=== PATIENT | female | born 1950 | race Hispanic/Latino ===

== ENCOUNTER 2018-11-23 09:48 | Inpatient (IN) | payer OTHER ==
[~2018-11-23] VITALS: Ht 157.5 cm; Wt 83.4 kg
[2018-11-23] VITALS (35 sets, daily range): BP systolic 63–136; BP diastolic 23–79
--- NOTE | 2018-11-23 11:38 | NUR ---
PATIENT ARRIVED VIA EMS. EMS STATES PATIENT STARTED C/O 5/10 CP RADIATING TO HER BACK, WITH N/V THAT STARTED 5 MINUTES PRIOR TO ARRIVAL AT [facility]. PATIENT MOVED TO ICU BED AND CONNECTED TO BEE ROBBER. ALARMS ON AND AUDIBLE. BED LOCKED AND LOW, CALL LIGHT IN REACH. 12 LEAD EKG DONE AND PLACED ON CHART. HEPARIN DRIP INFUSING AT 1000UNITS/HOUR, CONTINUED HERE AT [facility]. ASSESSED PER CHARTING. WILL CONTINUE TO MONITOR.
--- NOTE | 2018-11-23 11:51 | NUR ---
DENIES CHEST PAIN AT THIS TIME.
[2018-11-23] MEDS ORDERED: INSU3INS5 SQ (12:07)
[2018-11-23] MEDS ORDERED: INSU100I35 SQ (12:07)
[2018-11-23] MEDS ORDERED: METF-446 PO (12:08)
[2018-11-23] MEDS ORDERED: DULO30CA52 PO (12:08)
[2018-11-23] MEDS ORDERED: TELM40 PO (12:08)
[2018-11-23] MEDS ORDERED: ROSU40TA21 PO (12:08)
--- NOTE | 2018-11-23 12:09 | NUR ---
PAGED DR THAKKAR FOR ADMISSION ORDERS. INFORMED HE IS IN AN OPERATION AND ORDERS WILL BE PLACED IN THE COMPUTER.
[2018-11-23 12:28] LABS: HEMATOCRIT 22.5 % (36-48); MEAN CORPUSCULAR HEMOGLOBIN 25.7 pg (27.0-33.0); MEAN CORPUSCULAR HGB CONC 32.4 g/dL (32.0-36.0); MEAN CORPUSCULAR VOLUME 79.5 fL (79-99); PLATELET COUNT (AUTO) 194 K/uL (130-400); RED BLOOD CELL COUNT(AUTO) 2.83 MIL/uL (4.00-5.50); RED CELL DISTRIBUTION WIDTH 15.3 % (11.0-15.5); WHITE BLOOD COUNT (AUTO) 14.6 K/uL (4.8-10.8)
[2018-11-23] MEDS ORDERED: HEPARIN 25000 UNITS/250 ML D5W 250 ML IV PRN (12:30)
[2018-11-23 12:32] LABS: INR 1.02 (0.85-1.15); PARTIAL THROMBOPLASTIN TIME 63.1 SEC (26.3-35.5); PROTHROMBIN TIME 10.7 SEC (9.6-11.6)
[2018-11-23 12:44] LABS: CREATININE 1.4 mg/dL (0.5-1.5); MAGNESIUM 1.4 mg/dL (1.80-2.40)
[2018-11-23] MEDS: SODIUM CHLORIDE 0.9% 1000ML 1,000 ML IV SCH ×2 (12:59→20:30)
[2018-11-23] MEDS: MAGNESIUM 2GM PREMIX 50ML 50 ML IV PRN (12:59)
--- NOTE | 2018-11-23 13:25 | NUR ---
[facility] CALLED WITH CONSULT BY THE [facility]. PENDING CALL BACK.
[2018-11-23] MEDS ORDERED: ONDANSETRON HCL 4 MG/2 ML VIAL IVP PRN (13:30)
[2018-11-23] MEDS ORDERED: CALCIUM CHLORIDE 100 MG/ML 10 ML SYG IVP ONE (13:57)
[2018-11-23] MEDS ORDERED: HEPARIN SODIUM 1000UNIT/ML 10ML VIAL IV ONE (13:57)
[2018-11-23] MEDS ORDERED: PHENYLEPHRINE HCL 10 MG/ML 1ML VIAL IV ONE ×2 (13:57→23:22)
[2018-11-23] MEDS ORDERED: MANNITOL 25% 50ML VIAL IV ONE (13:57)
[2018-11-23] MEDS ORDERED: AMINOCAPROIC ACID 250 MG/ML 20 ML VIAL IV ONE (13:57)
[2018-11-23] MEDS ORDERED: ALBUMIN (HUMAN) 25% 50 ML IV ONE (13:57)
[2018-11-23] MEDS ORDERED: SODIUM BICARB 8.4% 50ML SYRINGE IVP ONE (13:57)
--- NOTE | 2018-11-23 16:36 | NUR ---
DR THAKKAR PAGED FOR PERSISTENT HYPOTENSION. PENDING CALL BACK.
--- NOTE | 2018-11-23 17:05 | NUR ---
DR THAKKAR PAGED AGAIN. CALLED BACK. INFORMED OF BP, H/H. ORDERED TO TRANSFUSE 2 UNITS PRBC.
--- NOTE | 2018-11-23 17:14 | NUR ---
DR KUNZ NOTIFIED OF CONSULT. NO NEW ORDERS AT THIS TIME.
--- NOTE | 2018-11-23 17:25 | NUR ---
CONSENT FOR TRANSFUSION OF BLOOD AND BLOOD PRODUCTS OBTAINED FROM VIK CARDONA (DAUGHTER). Mina ORALNDO RN AND Kenyon DOE RN OBTAINED TELEPHONE CONSENT
--- NOTE | 2018-11-23 17:40 | NUR ---
PER DR THAKKAR-CONTINUE HEPARIN DRIP AND TRANSFUSION
[2018-11-23] MEDS ORDERED: ALBUMIN (HUMAN) 5% 250 ML IV ONE (17:42)
[2018-11-23] MEDS ORDERED: ALBUMIN (HUMAN) 5% 250 ML IV SCH (17:45)
[2018-11-23 18:22] LABS: INR 1.13 (0.85-1.15); PROTHROMBIN TIME 11.8 SEC (9.6-11.6)
[2018-11-23 18:40] LABS: PARTIAL THROMBOPLASTIN TIME 114.7 SEC (26.3-35.5)
--- NOTE | 2018-11-23 19:05 | NUR ---
ASSESSMENT REMAINS RESTING IN BED. DENIES PAIN. ASSESSMENT COMPLETED SEE FLOW SHEET. BP REMAINS LOW. WAITING FOR BLOOD TO GET READY.
--- NOTE | 2018-11-23 19:45 | NUR ---
TRANSFUSION BLOOD READY FROM BANK AND SENT FOR.
[2018-11-23] MEDS ORDERED: SODIUM CHLORIDE 0.9% 500ML 500 ML IV ONE (19:55)
--- NOTE | 2018-11-23 20:15 | NUR ---
TRANSFUSION 1ST UNIT PRBC HERE AND CHECKED WITH 2ND RN AND TRANSFUSION STARTED. .
[2018-11-23] MEDS: ATORVASTATIN CALCIUM 20 MG TABLET PO SCH (21:00)
[2018-11-23] MEDS: METOPROLOL TARTRATE 25 MG TAB PO SCH (21:00)
[2018-11-23] MEDS: INSULIN HUMULIN R 100 UNIT/ML 3ML SQ SCH (21:00)
--- NOTE | 2018-11-23 21:20 | NUR ---
INDEPENDENT JEWELER CALL COMFORT GONZALEZ MAIL PROCESSOR FOR DR KUNZ CALLED AND MADE AWARE OF CONTINUED LOW BP ORDERS RECEIVED AND CARRIED OUT.
--- NOTE | 2018-11-23 21:25 | NUR ---
MD CALL DR THAKKAR CALLS AND ORDERS RECEIVED AND CARRIED OUT.
[2018-11-23] MEDS ORDERED: NOREPINEPHRINE 4MG/NS 250ML 250 ML IV SCH (21:30)
[2018-11-23 21:52] LABS: HEMATOCRIT 24.3 % (36-48); MEAN CORPUSCULAR VOLUME 90.1 fL (79-99); PLATELET COUNT (AUTO) 130 K/uL (130-400); RED CELL DISTRIBUTION WIDTH 16.5 % (11.0-15.5); WHITE BLOOD COUNT (AUTO) 18.2 K/uL (4.8-10.8)
[2018-11-23 21:58] LABS: CREATININE 1.7 mg/dL (0.5-1.5); POTASSIUM 5.3 mmol/L (3.5-5.1)
--- NOTE | 2018-11-23 22:00 | NUR ---
TRANSFUSION 1ST TRANSFUSION COMPLETED WITHOUT PROBLEM. 2ND UNIT PRBC HERE AND CHECKED WITH 2ND RN AND TRANSFUSION STARTED.
--- NOTE | 2018-11-23 22:00 | NUR ---
MD CALL DR JOHNS CALLS AND INFORMED OF LOW BP AND DR THAKKAR WANTING AN ART LINE PLACED. ORDERS RECEIVED AND CARRIED OUT.
[2018-11-23 22:04] LABS: INR 1.29 (0.85-1.15); PROTHROMBIN TIME 13.4 SEC (9.6-11.6)
--- NOTE | 2018-11-23 22:05 | NUR ---
HERE DR KUNZ HERE TO SEE HER.
[2018-11-23 22:07] LABS: ABG BASE EXCESS -15.8 mmol/L (-2.0-3.0); ABG HCO3 11.5 mmol/L (21.0-28.0); ABG OXYGEN SATURATION 97.9 % (95.0-99.0); ABG PCO2 32 mmHg (32-45)
[2018-11-23] MEDS ORDERED: SODIUM BICARB 50MEQ 50ML VIAL ONE ×2 (22:10→22:54)
[2018-11-23] MEDS ORDERED: LIDOCAINE HCL 2% 20ML ONE (22:44)
[2018-11-23] MEDS ORDERED: MIDAZOLAM HCL 1 MG/ML 2ML VIAL ONE (22:44)
[2018-11-23] MEDS ORDERED: BIVALIRUDIN 250 MG/VIAL IV ONE (22:44)
[2018-11-23] MEDS ORDERED: IOHEXOL-350 75 ML VIAL IV ONE (22:44)
[2018-11-23] MEDS ORDERED: NITROGLYCERIN 5 MG/ML 10 ML VIAL IV ONE (22:44)
[2018-11-23] MEDS ORDERED: IOHEXOL-350 50ML VIAL IV ONE (22:44)
[2018-11-23] MEDS ORDERED: FENTANYL CITRATE PF 50 MCG/1 ML 2ML VIAL ONE (22:44)
[2018-11-23] MEDS ORDERED: DOPAMINE HCL 400 MG/D5%-WATER 0 ML IV ONE (22:53)
[2018-11-23] MEDS ORDERED: LIDOCAINE PF 2% 5ML ABBOJECT ONE (22:53)
[2018-11-23] MEDS ORDERED: ATROPINE SULFATE 0.1 MG/ML 10 ML SYG IVP ONE (22:53)
--- NOTE | 2018-11-23 23:05 | NUR ---
TO LEATHER FINISHER LEATHER FINISHER NURSES HERE AND MOVED TO LEATHER FINISHER FOR PROCEDURE.
[2018-11-23] MEDS ORDERED: SODIUM BICARB 50MEQ 50ML VIAL IV ONE (23:15)
[2018-11-24] VITALS (90 sets, daily range): BP systolic 62–190; BP diastolic 25–82
--- NOTE | 2018-11-24 00:25 | NUR ---
RECEIVED BACK FROM SPORTS MANAGEMENT INTERN WITH LEVOPHED DRIP INFUSING AT 15MCG. HAS LEFT FEMORAL ARTERIAL AND VENOUS SHEATHS IN PLACE. ART LINE PLACED TO MONITOR AND LEVELED AND ZEROED. DENIES PAIN AT THIS TIME. ASSESSMENT COMPLETED.
--- NOTE | 2018-11-24 00:35 | NUR ---
BILLING SPEC CALL MR GONZALEZ,BILLING SPEC FOR DR KUNZ CALLS AND ORDERS STAT ABG
[2018-11-24 00:49] LABS: ABG BASE EXCESS -8.3 mmol/L (-2.0-3.0); ABG HCO3 16.2 mmol/L (21.0-28.0); ABG OXYGEN SATURATION 98.6 % (95.0-99.0); ABG PCO2 29 mmHg (32-45)
--- NOTE | 2018-11-24 00:50 | NUR ---
DR THAKKAR HERE AT BED SIDE. SEE ABG RESULTS AND ORDERS RECEIVED AND CARRIED OUT. STATES WANTS LEVOPHED DRIP WEAN OFF. TALKS TO FAMILY AND QUESTIONS ANSWERED.
[2018-11-24] MEDS ORDERED: SODIUM BICARB 50MEQ 50ML VIAL ONE ×6 (00:52→14:35)
[2018-11-24] MEDS ORDERED: CALCIUM GLUCONATE 1 GM/10 ML VIAL IV ONE (01:15)
[2018-11-24] MEDS ORDERED: SODIUM CHLORIDE 0.9% 500ML 500 ML IV ONE ×2 (01:25→08:40)
--- NOTE | 2018-11-24 01:30 | NUR ---
TRANSFUSION STARTED BEFORE LEAVING FOR [facility] COMPLETED . DR THAKKAR HERE AND ORDERS TO GIVE ADDITIONAL 3 UNITS.
--- NOTE | 2018-11-24 01:40 | NUR ---
TRANSFUSION PRBC HERE AND CHECKED WITH 2ND RN AND TRANSFUSION STARTED.
--- NOTE | 2018-11-24 02:35 | NUR ---
MD CALL BP REMAINS LOW AND ORDERS GIVEN EARLIER TO WEAN OFF LEVOPHED. DR THAKKAR CALLED AND INFORMED OF LOW BP STILL AND NOT ABLE TO WEAN LEVOPHED DRIP.ORDERS RECEIVED AND CARRIED OUT. ORDER ALSO RECEIVED NOT TO RESUME HEPARIN DRIP. FAMILY MEMBER REMAINS AT BEDSIDE.
[2018-11-24] MEDS ORDERED: NOREPINEPHRINE BITARTRATE 1 MG/1 ML ML IV ONE ×2 (02:45→08:26)
[2018-11-24] MEDS ORDERED: SODIUM CHLORIDE 0.9% 250 ML IV ONE (02:45)
--- NOTE | 2018-11-24 03:00 | NUR ---
TRANSFUSION PRBC INFUSED . ANOTHER UNIT PRBC HERE FROM LAB AND CHECKED WITH 2ND RN AND TRANSFUSION STARTED.
[2018-11-24] MEDS: SODIUM CHLORIDE 0.9% 1000ML 1,000 ML IV SCH ×2 (04:30→08:18)
--- NOTE | 2018-11-24 04:30 | NUR ---
TRANSFUSION COMPLETED. ADDITIONAL PRBC HERE FROM LAB AND CHECKED WITH 2ND RN AND TRANSFUSION STARTED.
[2018-11-24] MEDS: INSULIN HUMULIN R 100 UNIT/ML 3ML SQ SCH ×2 (06:43→11:30)
[2018-11-24 07:13] LABS: HEMATOCRIT 40.9 % (36-48)
--- NOTE | 2018-11-24 07:15 | NUR ---
PT ASBP NOTED 60S. PT UNRESPONSIVE AND WITH AGONAL BREATHING. DR. VANESSA AT BEDSIDE. 1 L NS BOLUS STARTED AND LEVOPHED INCREASED TO 15 MCGS/MIN. ABG OBTAINED. DR. THAKKAR AND DR. FRANCO CALLED AND NOTIFIED. NEW ORDERS RECEIVED AND NOTED. DAUGHTER UPDATED AND ALL QUESTIONS ANSWERED. PT FULL CODE PER FAMILY REQUEST. ANESTHESIA CALLED TO INTUBATE PT.
[2018-11-24 07:29] LABS: ABG BASE EXCESS -17.6 mmol/L (-2.0-3.0); ABG HCO3 15.9 mmol/L (21.0-28.0); ABG OXYGEN SATURATION 97.2 % (95.0-99.0); ABG PCO2 79 mmHg (32-45)
[2018-11-24] MEDS ORDERED: PROPOFOL 1000 MG/100 ML 100 ML IV ONE (07:42)
--- NOTE | 2018-11-24 07:45 | NUR ---
ANESTHESIA AT BEDSIDE, PT INTUBATED WITH ETT 7.5, 20 LIPS, CXR ORDERED AND REVIEWED. PT PLACED ON PRESCRIBED VENT SETTINGS.
[2018-11-24] MEDS ORDERED: SODIUM BICARB 50MEQ 50ML VIAL IV SCH (07:48)
[2018-11-24] MEDS ORDERED: PROPOFOL 1000 MG/100 ML IV PRN (08:00)
--- NOTE | 2018-11-24 08:10 | NUR ---
DR. THAKKAR AT BEDSIDE. PLAN OF CARE DISCUSSED. NEED FOR EMERGENT SURGERY DISCUSSED WITH DAUGHTER AT BEDSIDE, ALL RISK INVOLVED EXPLAINED TO DAUGHTER INCLUDING AND NOT LIMITED TO . DAUGHTER STATES SHE UNDERSTANDS AND WANT TO PROCEED WITH SURGERY, SURGERY SCHEDULED AND CONSENT OBTAINED.
[2018-11-24] MEDS ORDERED: CLINDAMYCIN 600 MG/D5% WATER 50 ML IV SCH (08:15)
[2018-11-24] MEDS ORDERED: PROPOFOL 1000 MG/100 ML 100 ML IV PRN ×2 (08:15→14:45)
[2018-11-24 08:20] LABS: ABG BASE EXCESS -6.6 mmol/L (-2.0-3.0); ABG HCO3 19.5 mmol/L (21.0-28.0); ABG PCO2 41 mmHg (32-45)
[2018-11-24] MEDS ORDERED: FENTANYL CITRATE PF 50 MCG/1 ML 2ML VIAL ONE (08:23)
[2018-11-24] MEDS ORDERED: LIDOCAINE PF 2% 5ML ABBOJECT ONE ×2 (08:26→08:28)
[2018-11-24] MEDS ORDERED: ESMOLOL HCL 10 MG/ML 10 ML VIAL ONE (08:26)
[2018-11-24] MEDS ORDERED: AMINOCAPROIC ACID 250 MG/ML 20 ML VIAL IV ONE (08:26)
[2018-11-24] MEDS ORDERED: EPINEPHRINE 1 MG/ML AMPULE ONE (08:26)
[2018-11-24] MEDS ORDERED: HEPARIN SODIUM 1000UNIT/ML 10ML VIAL ONE (08:26)
[2018-11-24] MEDS ORDERED: PROTAMINE SULFATE 10 MG/ML 25ML VIAL IV ONE (08:26)
[2018-11-24] MEDS ORDERED: FENTANYL CITRATE PF 50 MCG/1 ML 20ML VIAL IJ ONE (08:27)
[2018-11-24] MEDS ORDERED: ROCURONIUM 10MG/1ML SYR 10 MG/ML ML ONE ×2 (08:27→11:08)
[2018-11-24] MEDS ORDERED: PROPOFOL 10 MG/ML 20ML VIAL IV ONE (08:27)
[2018-11-24] MEDS ORDERED: VASOPRESSIN 20 UNITS/ML 1ML VIAL ONE (08:28)
[2018-11-24] MEDS ORDERED: ETOMIDATE 2 MG/ML 10 ML VIAL ONE (08:28)
[2018-11-24] MEDS ORDERED: AMIODARONE HCL 50 MG/ML 3 ML VIAL ONE (08:29)
[2018-11-24] MEDS ORDERED: EPINEPHRINE 8 MG in SODIUM CHLORIDE 0.9% 250 ML IV PRN (08:30)
--- NOTE | 2018-11-24 08:41 | NUR ---
DR. WHITLOCK AND OR NURSES AT BEDSIDE TO TAKE PT TO SURGERY. PT AWAKE AND RESTLESS, EPI DRIP STARTED AT 0.01 MCGS/KG/MIN ORDERED. VS NOTED IN EMR. DAUGHTER AT BEDSIDE.
[2018-11-24 08:48] LABS: HEMOGLOBIN A1C 6.1 % (4.0-6.0)
[2018-11-24 08:58] LABS: INR 2.1 (0.85-1.15); PARTIAL THROMBOPLASTIN TIME 47.1 SEC (26.3-35.5); PROTHROMBIN TIME 21.4 SEC (9.6-11.6)
[2018-11-24] MEDS ORDERED: ASPIRIN 81 MG EC TAB PO SCH (09:00)
[2018-11-24] MEDS: METOPROLOL TARTRATE 25 MG TAB PO SCH (09:00)
[2018-11-24] MEDS ORDERED: CLINDAMYCIN 900 MG/D5% WATER 50 ML IV ONE (09:09)
[2018-11-24] MEDS ORDERED: ALBUMIN (HUMAN) 5% 500 ML IV ONE ×2 (09:25→09:26)
[2018-11-24 09:31] LABS: ABG BASE EXCESS -0.5 mmol/L (-2.0-3.0); ABG HCO3 22.8 mmol/L (21.0-28.0); ABG OXYGEN SATURATION 96.6 % (95.0-99.0); ABG PCO2 32 mmHg (32-45)
[2018-11-24] MEDS ORDERED: PAPAVERINE HCL 30 MG/ML 2ML VIAL ONE (09:50)
[2018-11-24] MEDS ORDERED: BACITRACIN 50,000 UNIT VIAL ONE (09:50)
[2018-11-24 10:42] LABS: ABG BASE EXCESS -2.9 mmol/L (-2.0-3.0); ABG HCO3 22.2 mmol/L (21.0-28.0); ABG OXYGEN SATURATION 94.1 % (95.0-99.0); ABG PCO2 39 mmHg (32-45)
[2018-11-24 10:48] LABS: PLATELET FUNCTION ANALYSIS ADP 171 SEC (62-100); PLATELET FUNCTION ANALYSIS EPI > 192 SEC (55-192)
[2018-11-24 10:49] LABS: HEMATOCRIT 40.9 % (36-48)
[2018-11-24 10:51] LABS: ABG BASE EXCESS -3.4 mmol/L (-2.0-3.0); ABG OXYGEN SATURATION 98.2 % (95.0-99.0); ABG PCO2 41 mmHg (32-45)
[2018-11-24 11:04] LABS: PLATELET COUNT (AUTO) 65 K/uL (130-400)
[2018-11-24 11:32] LABS: ABG BASE EXCESS -1.8 mmol/L (-2.0-3.0); ABG HCO3 22.5 mmol/L (21.0-28.0); ABG OXYGEN SATURATION 98.6 % (95.0-99.0); ABG PCO2 36 mmHg (32-45)
[2018-11-24 12:09] LABS: ABG BASE EXCESS -0.9 mmol/L (-2.0-3.0); ABG HCO3 24.1 mmol/L (21.0-28.0); ABG OXYGEN SATURATION 98.3 % (95.0-99.0); ABG PCO2 41 mmHg (32-45)
[2018-11-24] MEDS ORDERED: POTASSIUM CHLORIDE 20MEQ/100ML 200 ML IV ONE (12:35)
[2018-11-24 12:42] LABS: ABG BASE EXCESS -2.3 mmol/L (-2.0-3.0); ABG HCO3 21.9 mmol/L (21.0-28.0); ABG OXYGEN SATURATION 98.5 % (95.0-99.0); ABG PCO2 35 mmHg (32-45)
[2018-11-24 13:11] LABS: ABG BASE EXCESS -2.3 mmol/L (-2.0-3.0); ABG HCO3 22.3 mmol/L (21.0-28.0); ABG OXYGEN SATURATION 98.7 % (95.0-99.0); ABG PCO2 37 mmHg (32-45)
[2018-11-24 13:48] LABS: ABG BASE EXCESS -1.8 mmol/L (-2.0-3.0); ABG HCO3 21.3 mmol/L (21.0-28.0); ABG OXYGEN SATURATION 97.1 % (95.0-99.0); ABG PCO2 30 mmHg (32-45)
[2018-11-24 13:49] LABS: PLATELET COUNT (AUTO) 38 K/uL (130-400)
[2018-11-24 14:16] LABS: PLATELET MORPHOLOGY COMMENT MARKED DECREASE
[2018-11-24 14:18] LABS: ABG BASE EXCESS -3.2 mmol/L (-2.0-3.0); ABG HCO3 19.8 mmol/L (21.0-28.0); ABG OXYGEN SATURATION 95.7 % (95.0-99.0); ABG PCO2 28 mmHg (32-45)
[2018-11-24] MEDS ORDERED: SODIUM CHLORIDE 0.9% 500ML 500 ML IV SCH (14:33)
[2018-11-24] MEDS ORDERED: SODIUM CHLORIDE 0.9% 1000ML 1,000 ML IV SCH (14:45)
[2018-11-24] MEDS ORDERED: TRAMADOL HCL 50 MG TABLET PO PRN ×2 (14:45)
[2018-11-24] MEDS ORDERED: MORPHINE SULFATE 2 MG/ML 1ML SYG IV PRN (14:45)
[2018-11-24] MEDS ORDERED: NITROGLYCERIN 50 MG/D5% WATER 250 BOT IV SCH (14:45)
[2018-11-24] MEDS ORDERED: GLUCAGON 1MG KIT 1 MG ML IM PRN (14:45)
[2018-11-24] MEDS ORDERED: SODIUM CHLORIDE 0.9% 10 ML VIAL IVP PRN (14:45)
[2018-11-24] MEDS ORDERED: ACETAMINOPHEN 325 MG TAB PO PRN ×2 (14:45)
[2018-11-24] MEDS ORDERED: AMINOCAPROIC ACID 15,000 MG in SODIUM CHLORIDE 0.9% 250 ML IV SCH (14:45)
[2018-11-24] MEDS ORDERED: ACETAMINOPHEN 650 MG SUPPOSITORY RC PRN (14:45)
[2018-11-24] MEDS ORDERED: MORPHINE SULFATE 4 MG/1ML SYG IV PRN (14:45)
[2018-11-24] MEDS ORDERED: NOREPINEPHRINE 4MG/NS 250ML 250 ML IV PRN (14:45)
[2018-11-24] MEDS ORDERED: ONDANSETRON HCL 4 MG/2 ML VIAL IV PRN (14:45)
[2018-11-24] MEDS ORDERED: DEXTROSE 50%-WATER 50 ML DISP.SYRIN IV PRN (14:45)
[2018-11-24] MEDS ORDERED: POTASSIUM PHOS 15 mMOL+NS250ML 250 ML IV PRN (14:45)
[2018-11-24] MEDS ORDERED: SODIUM BICARB 50MEQ 50ML VIAL IV PRN (14:45)
[2018-11-24] MEDS ORDERED: ALBUMIN (HUMAN) 5% 250 ML IV PRN (14:45)
[2018-11-24] MEDS ORDERED: SODIUM CHLORIDE 0.9% 250 ML IV PRN (14:45)
--- NOTE | 2018-11-24 15:15 | NUR ---
PATIENT ARRIVED TO CVER FROM OR WITH ETT CONNECTED TO ORDERED SETTINGS. ON EPI AND LEVOPHED DRIPS. 2 CT TO 1 ATRIUM WITH 200ML NOTED ON ARRIVAL. NO AIR LEAK. LEONE CATHETER CHANGED IN OR. PATENT AND DRAINING. ROSEY DRAIN NOTED TO RIGHT FEMORAL SITE. BED LOCKED AND LOW. MONITORS ON AND ALARMS SET/AUDIBLE. R NARE NGT PLACEMENT CONFIRMED AND CONNECTED TO LIWS AND NOTICED DARK RED DRAINAGE. ASSESSMENT AND VITALS PER CHARTING.
--- NOTE | 2018-11-24 15:33 | NUR ---
REVIEWED ASSESSMENT AND AVAILABLE LAB RESULTS WITH DR THAKKAR AT BEDSIDE. ORDERED PROTONIX DRIP. DUE TO POOR RENAL FUNCTION, HOLDING K REPLACEMENT AT THIS TIME. ORDERED ADDITIONAL 2 PRBC, 2FFP, 1 PLT AND 1 CRYO UNITS TO BE TRANSFUSED STAT. ORDERED FIXED RATE DOPAMINE DRIP. ALL ORDERS CARRIED OUT.
[2018-11-24 15:35] LABS: ABG BASE EXCESS -0.6 mmol/L (-2.0-3.0); ABG HCO3 23.6 mmol/L (21.0-28.0); ABG OXYGEN SATURATION 88.9 % (95.0-99.0); ABG PCO2 37 mmHg (32-45)
[2018-11-24 15:41] LABS: ABG OXYGEN SATURATION 49.2 % (95.0-99.0); BASE EXCESS,VENOUS BLOOD GAS -0.7 (-2.0-3.0); HCO3,VENOUS BLOOD GAS 23.9 (21.0-28.0); PCO2,VENOUS BLOOD GAS 39 (32-45); PH,VENOUS BLOOD GAS 7.406 (7.350-7.450)
[2018-11-24] MEDS ORDERED: DOPAMINE 800MG/D5 250ML 250 ML IV ONE (15:41)
[2018-11-24] MEDS ORDERED: IPRATROPIUM/ALBUTEROL SULFATE 3 ML SOLUTION IH ONE (15:42)
[2018-11-24] MEDS ORDERED: DOPAMINE 800MG/D5 250ML 250 ML IV PRN (15:45)
[2018-11-24 15:53] LABS: CARBON DIOXIDE 23 mmol/L (21-32); CHLORIDE 115 mmol/L (101-111); CREATININE 2.5 mg/dL (0.5-1.5); GLOMERULAR FILTR. RATE CALC 20 mL/min (>60); GLUCOSE,RANDOM 152 mg/dL (70-105); PHOSPHORUS 5.9 mg/dL (2.5-4.9); POTASSIUM 3.6 mmol/L (3.5-5.1); UREA NITROGEN, BLOOD 33 mg/dL (7-18)
[2018-11-24 15:56] LABS: SODIUM SERUM > 162 mmol/L (136-145)
[2018-11-24 15:58] LABS: HEMATOCRIT 21.1 % (36-48); MEAN CORPUSCULAR HEMOGLOBIN 31.1 pg (27.0-33.0); MEAN CORPUSCULAR HGB CONC 34.3 g/dL (32.0-36.0); MEAN CORPUSCULAR VOLUME 90.8 fL (79-99); NUCLEATED RED BLOOD CELLS 6.6 % (0.0-0.19); PLATELET COUNT (AUTO) 90 K/uL (130-400); RED BLOOD CELL COUNT(AUTO) 2.33 MIL/uL (4.00-5.50); RED CELL DISTRIBUTION WIDTH 15.3 % (11.0-15.5); WHITE BLOOD COUNT (AUTO) 2.1 K/uL (4.8-10.8)
[2018-11-24] MEDS: INSULIN REGULAR, HUMAN 3ML 100 UNIT in SODIUM CHLORIDE 0.9% 99 ML IV SCH ×2 (16:07)
--- NOTE | 2018-11-24 16:10 | NUR ---
pt on vent Addendum: 11/24/18 at 1616 by GRISEL KWAN RT Amended: Links added.
--- NOTE | 2018-11-24 16:10 | NUR ---
DR THAKKAR LEFT PATIENT'S BEDSIDE.
[2018-11-24 16:13] LABS: INR 1.39 (0.85-1.15); PARTIAL THROMBOPLASTIN TIME 30.4 SEC (26.3-35.5); PROTHROMBIN TIME 14.4 SEC (9.6-11.6)
[2018-11-24 16:14] LABS: ABG BASE EXCESS -1.1 mmol/L (-2.0-3.0); ABG HCO3 22.1 mmol/L (21.0-28.0); ABG OXYGEN SATURATION 97.2 % (95.0-99.0); ABG PCO2 31 mmHg (32-45)
--- NOTE | 2018-11-24 16:15 | NUR ---
no family available to ask for pulmonary hx Addendum: 11/24/18 at 1616 by GRISEL KWAN RT Amended: Links added.
[2018-11-24] MEDS: IPRATROPIUM/ALBUTEROL SULFATE 3 ML SOLUTION IH SCH ×3 (16:17→21:42)
[2018-11-24] MEDS: PANTOPRAZOLE SODIUM 80 MG in SODIUM CHLORIDE 0.9% 100 ML IV SCH (16:35)
[2018-11-24 16:47] LABS: LYMPHOCYTES % (MANUAL) 29 % (22-44); MONOCYTES % (MANUAL) 4 % (2-9); SEGMENTED NEUTROPHILS % 67 % (40-70)
[2018-11-24 16:48] LABS: MAN.DIFF COMMENT-IMPRESSION MANUAL DIFFERENTIAL; PLATELET MORPHOLOGY COMMENT DECREASED
[2018-11-24] MEDS ORDERED: FUROSEMIDE 10 MG/ML 2ML VIAL IV SCH (17:05)
--- NOTE | 2018-11-24 17:45 | NUR ---
FAMILY IN TO VISIT. EXPLAINED CURRENT CONDITION, POC, VISITATION. ALL QUESTIONS ANSWERED. VIK (DAUGHTER) WILL BE SPOKESPERSON [phone].
[2018-11-24 19:17] LABS: ABG HCO3 22.4 mmol/L (21.0-28.0); ABG PCO2 28 mmHg (32-45)
[2018-11-24] MEDS ORDERED: PHARMACY COMMUNICATION MISC SCH (19:45)
[2018-11-24 19:51] LABS: MEAN CORPUSCULAR HEMOGLOBIN 31.3 pg (27.0-33.0); MEAN CORPUSCULAR HGB CONC 34.6 g/dL (32.0-36.0); MEAN CORPUSCULAR VOLUME 90.6 fL (79-99); NUCLEATED RED BLOOD CELLS 0.4 % (0.0-0.19); PLATELET COUNT (AUTO) 97 K/uL (130-400); RED BLOOD CELL COUNT(AUTO) 2.65 MIL/uL (4.00-5.50); RED CELL DISTRIBUTION WIDTH 14.9 % (11.0-15.5); WHITE BLOOD COUNT (AUTO) 4.3 K/uL (4.8-10.8)
[2018-11-24 20:12] LABS: ABG OXYGEN SATURATION 60.5 % (95.0-99.0); HCO3,VENOUS BLOOD GAS 25.1 (21.0-28.0); PCO2,VENOUS BLOOD GAS 38 (32-45); PH,VENOUS BLOOD GAS 7.436 (7.350-7.450)
[2018-11-24] MEDS ORDERED: NOREPINEPHRINE BITARTRATE 8 MG in SODIUM CHLORIDE 0.9% 250 ML IV PRN (20:15)
[2018-11-24 20:18] LABS: ABG BASE EXCESS 0.8 mmol/L (-2.0-3.0); ABG HCO3 24.1 mmol/L (21.0-28.0); ABG OXYGEN SATURATION 91.6 % (95.0-99.0); ABG PCO2 33 mmHg (32-45)
[2018-11-24 20:19] LABS: ALBUMIN 2.7 g/dL (3.5-5.0); BILIRUBIN,TOTAL 2.9 mg/dL (0.2-1.0); CARBON DIOXIDE 27 mmol/L (21-32); CHLORIDE 116 mmol/L (101-111); CREATININE 2.8 mg/dL (0.5-1.5); GLOMERULAR FILTR. RATE CALC 18 mL/min (>60); GLUCOSE,RANDOM 156 mg/dL (70-105); TOTAL PROTEIN, SERUM 4.6 g/dL (6.0-8.3); UREA NITROGEN, BLOOD 39 mg/dL (7-18)
[2018-11-24 20:27] LABS: ALANINE AMINOTRANSFERASE 1651 U/L (12-78); POTASSIUM 2.9 mmol/L (3.5-5.1); SODIUM SERUM > 162 mmol/L (136-145)
--- NOTE | 2018-11-24 20:28 | NUR ---
Notification to [address] fowler to notify of patients current condition, ABG and labs. 2114: Dr. Fowler here to see Pt. Orders received and entered into system 11/25/18 0033: Notification to Dr. Fowler Orders Received and entered into Not iT, 0430: Dr. Fowler notified of patients current condition, ABG results, Medications infusing, and all Lab including critical. Orders received and entered into system
[2018-11-24] MEDS ORDERED: FUROSEMIDE 10 MG/ML 4ML VIAL ONE (20:40)
[2018-11-24] MEDS: ATORVASTATIN CALCIUM 20 MG TABLET PO SCH (20:46)
[2018-11-24] MEDS: FAMOTIDINE/PF 20 MG/2 ML VIAL IV SCH (20:46)
[2018-11-24] MEDS ORDERED: FUROSEMIDE 10 MG/ML 4ML VIAL IV STA (20:46)
[2018-11-24 21:04] LABS: ASPARTATE AMINOTRANSFERASE 3862 U/L (10-37)
[2018-11-24 21:29] LABS: ABG BASE EXCESS 3.4 mmol/L (-2.0-3.0); ABG PCO2 37 mmHg (32-45)
[2018-11-24] MEDS: CALCIUM GLUCONATE 1 GM in SODIUM CHLORIDE 0.9% 50 ML IV PRN (21:41)
[2018-11-24] MEDS: POTASSIUM CHLORIDE 20MEQ/100ML 100 ML IV PRN (21:46)
[2018-11-24] MEDS: FUROSEMIDE 100 MG in SODIUM CHLORIDE 0.9% 90 ML IV PRN (22:06)
[2018-11-24] MEDS ORDERED: ALBUMIN (HUMAN) 25% 50 ML IV SCH (23:00)
[2018-11-24 23:01] LABS: ABG BASE EXCESS 5.4 mmol/L (-2.0-3.0); ABG HCO3 26.8 mmol/L (21.0-28.0); ABG OXYGEN SATURATION 97.3 % (95.0-99.0); ABG PCO2 28 mmHg (32-45)
[2018-11-24] MEDS ORDERED: ALBUMIN (HUMAN) 25% 100 ML IV ONE (23:01)
[2018-11-24] MEDS: CLINDAMYCIN 900 MG/D5% WATER 50 ML IV SCH (23:13)
[2018-11-25] VITALS (54 sets, daily range): BP systolic 80–129; BP diastolic 23–75
[2018-11-25 00:14] LABS: ABG BASE EXCESS 3.8 mmol/L (-2.0-3.0); ABG HCO3 28.1 mmol/L (21.0-28.0); ABG OXYGEN SATURATION 90.6 % (95.0-99.0); ABG PCO2 41 mmHg (32-45)
[2018-11-25] MEDS: PANTOPRAZOLE SODIUM 80 MG in SODIUM CHLORIDE 0.9% 100 ML IV SCH ×3 (00:57→20:46)
[2018-11-25] MEDS: CALCIUM GLUCONATE 1 GM in SODIUM CHLORIDE 0.9% 50 ML IV PRN (00:57)
[2018-11-25] MEDS: HYDROCORTISONE SOD SUCCINATE 100 MG/2 ML VIAL IV SCH ×4 (01:00→20:41)
[2018-11-25] MEDS: POTASSIUM CHLORIDE 20MEQ/100ML 100 ML IV PRN ×3 (01:01→15:36)
[2018-11-25] MEDS ORDERED: HYDROCORTISONE SOD SUCCINATE 100 MG/2 ML VIAL ONE (01:22)
[2018-11-25] MEDS: IPRATROPIUM/ALBUTEROL SULFATE 3 ML SOLUTION IH SCH ×6 (01:51→21:13)
[2018-11-25] MEDS: EPINEPHRINE 8 MG in DEXTROSE 5%-WATER 250 ML IV PRN ×3 (02:47→20:21)
[2018-11-25 03:02] LABS: ABG BASE EXCESS 3.8 mmol/L (-2.0-3.0); ABG HCO3 27.8 mmol/L (21.0-28.0); ABG PCO2 40 mmHg (32-45)
[2018-11-25 03:21] LABS: HEMATOCRIT 27.8 % (36-48); MEAN CORPUSCULAR HEMOGLOBIN 30.7 pg (27.0-33.0); MEAN CORPUSCULAR HGB CONC 34.3 g/dL (32.0-36.0); MEAN CORPUSCULAR VOLUME 89.5 fL (79-99); PLATELET COUNT (AUTO) 84 K/uL (130-400); RED BLOOD CELL COUNT(AUTO) 3.11 MIL/uL (4.00-5.50); RED CELL DISTRIBUTION WIDTH 14.3 % (11.0-15.5); WHITE BLOOD COUNT (AUTO) 18.4 K/uL (4.8-10.8)
[2018-11-25 03:41] LABS: INR 1.26 (0.85-1.15); PARTIAL THROMBOPLASTIN TIME 31.1 SEC (26.3-35.5); PROTHROMBIN TIME 13.1 SEC (9.6-11.6)
[2018-11-25 03:42] LABS: ALBUMIN 2.7 g/dL (3.5-5.0); BILIRUBIN,TOTAL 2.8 mg/dL (0.2-1.0); CREATININE 3.1 mg/dL (0.5-1.5); MAGNESIUM 1.7 mg/dL (1.80-2.40); PHOSPHORUS 3.3 mg/dL (2.5-4.9); POTASSIUM 3.2 mmol/L (3.5-5.1); TOTAL PROTEIN, SERUM 4.6 g/dL (6.0-8.3)
[2018-11-25 04:21] LABS: ABG BASE EXCESS 5.1 mmol/L (-2.0-3.0); ABG HCO3 28.7 mmol/L (21.0-28.0); ABG PCO2 39 mmHg (32-45)
[2018-11-25] MEDS: CLINDAMYCIN 900 MG/D5% WATER 50 ML IV SCH ×2 (06:46→13:54)
[2018-11-25] MEDS: FUROSEMIDE 100 MG in SODIUM CHLORIDE 0.9% 90 ML IV PRN (06:46)
[2018-11-25] MEDS ORDERED: DEXTROSE 5%-WATER 1,000 ML IV ONE ×2 (07:50→11:15)
[2018-11-25] MEDS ORDERED: PHARMACY COMMUNICATION MISC SCH (08:00)
[2018-11-25] MEDS ORDERED: DEXTROSE 5%-WATER 500 ML IV ONE ×2 (08:00→16:00)
[2018-11-25] MEDS ORDERED: DEXTROSE 5%-WATER 500 ML IV SCH (08:00)
[2018-11-25] MEDS: FAMOTIDINE/PF 20 MG/2 ML VIAL IV SCH ×2 (08:02→20:12)
[2018-11-25] MEDS: MEROPENEM 500 MG VIAL IVP SCH ×2 (08:03→20:12)
[2018-11-25 08:15] LABS: ABG BASE EXCESS 2.8 mmol/L (-2.0-3.0); ABG OXYGEN SATURATION 89.9 % (95.0-99.0); ABG PCO2 40 mmHg (32-45)
[2018-11-25] MEDS ORDERED: NOREPINEPHRINE BITARTRATE 8 MG in DEXTROSE 5%-WATER 250 ML IV PRN (08:30)
[2018-11-25] MEDS ORDERED: DEXTROSE 5%-WATER 1,000 ML IV SCH (08:30)
[2018-11-25] MEDS: MAGNESIUM 2GM PREMIX 50ML 50 ML IV PRN (08:43)
[2018-11-25] MEDS: DEXTROSE 5%-WATER 500 ML IV PRN (08:47)
[2018-11-25] MEDS: CALCIUM GLUCONATE 1 GM in DEXTROSE 5%-WATER 50 ML IV PRN ×4 (09:38→23:09)
[2018-11-25 09:44] LABS: ABG BASE EXCESS 4.7 mmol/L (-2.0-3.0); ABG HCO3 29.3 mmol/L (21.0-28.0); ABG PCO2 43 mmHg (32-45)
--- NOTE | 2018-11-25 11:41 | NUR ---
HOLD PHYSICAL THERAPY TODAY PER GABRIELA TURPIN DUE TO PATIENT IS STILL INTUBATED. Addendum: 11/25/18 at 1142 by LUIS ANTONIO MULLEN PT PT Amended: Links added.
[2018-11-25 12:34] LABS: CREATININE 4.2 mg/dL (0.5-1.5); POTASSIUM 3.6 mmol/L (3.5-5.1)
[2018-11-25 12:50] LABS: ALBUMIN 2.2 g/dL (3.5-5.0); BILIRUBIN,DIRECT 0.6 mg/dL (0.0-0.3); BILIRUBIN,TOTAL 2.4 mg/dL (0.2-1.0); MAGNESIUM 2.8 mg/dL (1.80-2.40); TOTAL PROTEIN, SERUM 4.2 g/dL (6.0-8.3)
[2018-11-25 13:19] LABS: ABG BASE EXCESS 4.4 mmol/L (-2.0-3.0); ABG HCO3 28.7 mmol/L (21.0-28.0); ABG OXYGEN SATURATION 90.8 % (95.0-99.0); ABG PCO2 42 mmHg (32-45)
[2018-11-25] MEDS ORDERED: CALCIUM GLUCONATE 1 GM/10 ML VIAL IV ONE (14:02)
[2018-11-25 15:21] LABS: ABG BASE EXCESS 4.2 mmol/L (-2.0-3.0); ABG HCO3 26.5 mmol/L (21.0-28.0); ABG OXYGEN SATURATION 94.6 % (95.0-99.0); ABG PCO2 31 mmHg (32-45)
[2018-11-25] MEDS: FUROSEMIDE IV PRN ×2 (15:39→17:10)
[2018-11-25] MEDS: INSULIN REGULAR, HUMAN 3ML 100 UNIT in SODIUM CHLORIDE 0.9% 99 ML IV SCH ×4 (15:39→20:25)
[2018-11-25] MEDS: WATER IV PRN ×2 (15:39→17:10)
[2018-11-25] MEDS: DEXTROSE 5% IV PRN ×2 (15:39→17:10)
[2018-11-25 18:17] LABS: ABG BASE EXCESS 7.1 mmol/L (-2.0-3.0); ABG HCO3 30.4 mmol/L (21.0-28.0); ABG OXYGEN SATURATION 92.8 % (95.0-99.0); ABG PCO2 38 mmHg (32-45)
[2018-11-25] MEDS ORDERED: VANCOMYCIN 0.75 GM in SODIUM CHLORIDE 0.9% 250 ML IV ONE (18:45)
[2018-11-25] MEDS ORDERED: DEXTROSE 5 %-0.45 % NACL 1,000 ML IV SCH (18:45)
[2018-11-25] MEDS ORDERED: ALBUMIN (HUMAN) 5% 250 ML IV ONE (18:45)
[2018-11-25] MEDS: ATORVASTATIN CALCIUM 20 MG TABLET PO SCH (19:48)
[2018-11-25 21:04] LABS: APPEARANCE,URINE SL CLOUDY (CLEAR); BILIRUBIN,URINE NEGATIVE (NEGATIVE); COLOR,URINE YELLOW (YELLOW); GLUCOSE, URINE (UA) NEGATIVE (NEGATIVE); KETONES,URINE NEGATIVE (NEGATIVE); LEUKOCYTE ESTERASE ,URINE TRACE (NEGATIVE); NITRATE,URINE NEGATIVE (NEGATIVE); OCCULT BLOOD,URINE LARGE (NEGATIVE); PH,URINE 5.5 (5.0-8.0); PROTEIN,URINE 100 mg/dL (NEGATIVE); UROBILINOGEN,URINE 0.2 mg/dL (0.2-1.0)
[2018-11-25 21:06] LABS: SODIUM,URINE RANDOM 52 mmol/l (40-220)
[2018-11-25 21:12] LABS: BACTERIA,URINE Moderate /HPF (None Seen); MUCUS,URINE Few LPF (None Seen)
[2018-11-25 23:09] LABS: ABG BASE EXCESS 6.1 mmol/L (-2.0-3.0); ABG HCO3 28.8 mmol/L (21.0-28.0); ABG OXYGEN SATURATION 95.8 % (95.0-99.0); ABG PCO2 34 mmHg (32-45)
[2018-11-26] VITALS (25 sets, daily range): BP systolic 94–144; BP diastolic 50–68
--- NOTE | 2018-11-26 00:44 | NUR ---
DR. BIJAN THAKKAR CALLED UPDATED PT STATUS LATEST ABGS, VS, DRIPS, I&O'S. NO NEW ORDERS AT THIS TIME. WILL CONTINUE TO MONITOR.
[2018-11-26] MEDS ORDERED: CALCIUM GLUCONATE 1 GM/10 ML VIAL IV ONE ×3 (01:14→06:29)
[2018-11-26] MEDS: CALCIUM GLUCONATE 1 GM in DEXTROSE 5%-WATER 50 ML IV PRN ×6 (01:15→20:59)
[2018-11-26] MEDS: IPRATROPIUM/ALBUTEROL SULFATE 3 ML SOLUTION IH SCH ×6 (01:19→21:25)
[2018-11-26] MEDS ORDERED: FUROSEMIDE 10 MG/ML 10ML VIAL ONE (02:49)
[2018-11-26] MEDS ORDERED: SODIUM CHLORIDE 0.9% 100 ML IV ONE (02:49)
[2018-11-26] MEDS: FUROSEMIDE IV PRN ×2 (03:03→19:27)
[2018-11-26] MEDS: WATER IV PRN ×2 (03:03→19:27)
[2018-11-26] MEDS: DEXTROSE 5% IV PRN ×2 (03:03→19:27)
[2018-11-26 04:17] LABS: ABG BASE EXCESS 5.4 mmol/L (-2.0-3.0); ABG HCO3 28.7 mmol/L (21.0-28.0); ABG OXYGEN SATURATION 96.1 % (95.0-99.0); ABG PCO2 37 mmHg (32-45)
[2018-11-26 04:29] LABS: MEAN CORPUSCULAR HGB CONC 34.8 g/dL (32.0-36.0); MEAN CORPUSCULAR VOLUME 89.1 fL (79-99); NUCLEATED RED BLOOD CELLS 1.5 % (0.0-0.19); PLATELET COUNT (AUTO) 37 K/uL (130-400); RED BLOOD CELL COUNT(AUTO) 2.69 MIL/uL (4.00-5.50); RED CELL DISTRIBUTION WIDTH 14.8 % (11.0-15.5); WHITE BLOOD COUNT (AUTO) 27.8 K/uL (4.8-10.8)
[2018-11-26 04:43] LABS: INR 1.29 (0.85-1.15); PARTIAL THROMBOPLASTIN TIME 38.7 SEC (26.3-35.5); PROTHROMBIN TIME 13.4 SEC (9.6-11.6)
[2018-11-26 04:50] LABS: ALBUMIN 2.3 g/dL (3.5-5.0); BILIRUBIN,DIRECT 1.1 mg/dL (0.0-0.3); BILIRUBIN,TOTAL 3.4 mg/dL (0.2-1.0); CREATININE 3.8 mg/dL (0.5-1.5); MAGNESIUM 2.6 mg/dL (1.80-2.40); PHOSPHORUS 4.2 mg/dL (2.5-4.9); POTASSIUM 3.9 mmol/L (3.5-5.1); TOTAL PROTEIN, SERUM 4.6 g/dL (6.0-8.3)
[2018-11-26 04:56] LABS: BAND NEUTROPHILS % (MANUAL) 16 % (0-2); LYMPHOCYTES % (MANUAL) 13 % (22-44); MAN.DIFF COMMENT-IMPRESSION MANUAL DIFFERENTIAL; MONOCYTES % (MANUAL) 11 % (2-9); PLATELET MORPHOLOGY COMMENT MARKED DECREASE; SEGMENTED NEUTROPHILS % 60 % (40-70)
[2018-11-26] MEDS ORDERED: PHARMACY COMMUNICATION MISC SCH (06:15)
--- NOTE | 2018-11-26 06:40 | NUR ---
DR. BIJAN THAKKAR CALLED AND UPDATED ON PT STATUS LATEST LABS, I&O'S, VS, AND DRIPS. NEW ORDERS RECEIVED AND WILL BE CARRIED OUT.
[2018-11-26] MEDS: MEROPENEM 500 MG VIAL IVP SCH ×2 (08:17→19:38)
[2018-11-26] MEDS: FAMOTIDINE/PF 20 MG/2 ML VIAL IV SCH ×2 (08:19→19:42)
[2018-11-26] MEDS: HYDROCORTISONE SOD SUCCINATE 100 MG/2 ML VIAL IV SCH ×2 (08:19→14:26)
[2018-11-26] MEDS: PANTOPRAZOLE SODIUM 80 MG in SODIUM CHLORIDE 0.9% 100 ML IV SCH ×2 (08:46→20:06)
[2018-11-26 09:13] LABS: ABG BASE EXCESS 5.9 mmol/L (-2.0-3.0); ABG OXYGEN SATURATION 98.2 % (95.0-99.0); ABG PCO2 36 mmHg (32-45)
[2018-11-26 10:34] LABS: ABG HCO3 29.3 mmol/L (21.0-28.0); ABG PCO2 37 mmHg (32-45)
--- NOTE | 2018-11-26 11:02 | NUR ---
YONI PHYSICAL THERAPY EVALUATION 11/26/2018, per GABRIELA Braxton Addendum: 11/26/18 at 1103 by LUIS ANTONIO MULLEN PT PT Amended: Links added.
[2018-11-26] MEDS: POTASSIUM CHLORIDE 10MEQ/100ML 100 ML IV PRN ×3 (11:32→21:18)
[2018-11-26 13:19] LABS: ABG BASE EXCESS 6.8 mmol/L (-2.0-3.0); ABG OXYGEN SATURATION 96.8 % (95.0-99.0); ABG PCO2 38 mmHg (32-45)
[2018-11-26 13:28] LABS: CREATININE 3.9 mg/dL (0.5-1.5); MAGNESIUM 1.9 mg/dL (1.80-2.40)
[2018-11-26 14:41] LABS: HEMATOCRIT 27.3 % (36-48); MEAN CORPUSCULAR HEMOGLOBIN 29.9 pg (27.0-33.0); MEAN CORPUSCULAR HGB CONC 34.4 g/dL (32.0-36.0); MEAN CORPUSCULAR VOLUME 86.9 fL (79-99); NUCLEATED RED BLOOD CELLS 0.9 % (0.0-0.19); PLATELET COUNT (AUTO) 26 K/uL (130-400); RED BLOOD CELL COUNT(AUTO) 3.14 MIL/uL (4.00-5.50); WHITE BLOOD COUNT (AUTO) 23.3 K/uL (4.8-10.8)
[2018-11-26 15:04] LABS: BAND NEUTROPHILS % (MANUAL) 33 % (0-2); LYMPHOCYTES % (MANUAL) 10 % (22-44); MAN.DIFF COMMENT-IMPRESSION MANUAL DIFFERENTIAL; MONOCYTES % (MANUAL) 1 % (2-9); SEGMENTED NEUTROPHILS % 56 % (40-70)
[2018-11-26 15:09] LABS: PLATELET MORPHOLOGY COMMENT MARKED DECREASE
[2018-11-26] MEDS: EPINEPHRINE 8 MG in DEXTROSE 5%-WATER 250 ML IV PRN (16:24)
[2018-11-26 18:17] LABS: ABG BASE EXCESS 5.4 mmol/L (-2.0-3.0); ABG HCO3 26.5 mmol/L (21.0-28.0); ABG PCO2 29 mmHg (32-45)
[2018-11-26] MEDS: ATORVASTATIN CALCIUM 20 MG TABLET PO SCH (20:06)
[2018-11-26 20:33] LABS: ABG HCO3 31.7 mmol/L (21.0-28.0); ABG PCO2 41 mmHg (32-45)
[2018-11-26] MEDS: MAGNESIUM 2GM PREMIX 50ML 50 ML IV PRN (21:21)
[2018-11-26 23:23] LABS: CREATININE 3.9 mg/dL (0.5-1.5); POTASSIUM 3.6 mmol/L (3.5-5.1)
[2018-11-26] MEDS: POTASSIUM CHLORIDE 20MEQ/100ML 100 ML IV PRN (23:33)
[2018-11-27] VITALS (24 sets, daily range): BP systolic 92–161; BP diastolic 47–90
--- NOTE | 2018-11-27 00:55 | NUR ---
DR. BIJAN THAKKAR AT BEDSIDE UPDATED ON PT STATUS AND CHART REVIEWED. NEW ORDERS RECEIVED AND WILL BE CARRIED OUT.
--- NOTE | 2018-11-27 01:25 | NUR ---
VENOUS SHEATH VENOUS SHEATH DISCONTINUED AT 0105 MANUAL PRESSURE HELD X 20 MINS PT TOLERATED WELL N0 BLEEDING OR OOZING NOTED AT SITE. SITE CLEANSED WITH CHLORAPREP AND COVERED WITH 4X4 AND FEMORAL SITE ALSO WAS CLEANSED WITH CHLORAPREP AND COVERED WITH CHG DRESSING. WILL CONTINUE TO MONITOR.
[2018-11-27] MEDS: IPRATROPIUM/ALBUTEROL SULFATE 3 ML SOLUTION IH SCH ×6 (01:32→22:11)
[2018-11-27] MEDS: HYDROCORTISONE SOD SUCCINATE 100 MG/2 ML VIAL IV SCH ×2 (02:09→14:00)
[2018-11-27] MEDS: POTASSIUM CHLORIDE 20MEQ/100ML 100 ML IV PRN ×4 (04:19→22:17)
[2018-11-27 04:24] LABS: ABG BASE EXCESS 8.5 mmol/L (-2.0-3.0); ABG HCO3 31.9 mmol/L (21.0-28.0); ABG OXYGEN SATURATION 94.7 % (95.0-99.0); ABG PCO2 39 mmHg (32-45)
[2018-11-27 04:25] LABS: HEMATOCRIT 26.8 % (36-48); MEAN CORPUSCULAR HEMOGLOBIN 30.3 pg (27.0-33.0); MEAN CORPUSCULAR HGB CONC 34.8 g/dL (32.0-36.0); MEAN CORPUSCULAR VOLUME 87.2 fL (79-99); NUCLEATED RED BLOOD CELLS 0.5 % (0.0-0.19); PLATELET COUNT (AUTO) 17 K/uL (130-400); RED BLOOD CELL COUNT(AUTO) 3.07 MIL/uL (4.00-5.50); RED CELL DISTRIBUTION WIDTH 15.6 % (11.0-15.5); WHITE BLOOD COUNT (AUTO) 19.9 K/uL (4.8-10.8)
[2018-11-27 04:25] LABS: ABG BASE EXCESS 9.9 mmol/L (-2.0-3.0); ABG HCO3 33.5 mmol/L (21.0-28.0); ABG PCO2 41 mmHg (32-45)
[2018-11-27 04:34] LABS: CREATININE 3.9 mg/dL (0.5-1.5); MAGNESIUM 2.3 mg/dL (1.80-2.40); PHOSPHORUS 4.9 mg/dL (2.5-4.9); POTASSIUM 3.5 mmol/L (3.5-5.1)
[2018-11-27 04:37] LABS: INR 1.03 (0.85-1.15); PARTIAL THROMBOPLASTIN TIME 33.4 SEC (26.3-35.5); PROTHROMBIN TIME 10.8 SEC (9.6-11.6)
[2018-11-27] MEDS: CALCIUM GLUCONATE 1 GM in DEXTROSE 5%-WATER 50 ML IV PRN ×3 (05:31→22:17)
[2018-11-27] MEDS: INSULIN HUMULIN R 100 UNIT/ML 3ML SQ SCH ×3 (06:00→18:45)
[2018-11-27] MEDS: DEXTROSE 5%-WATER 500 ML IV PRN (06:20)
--- NOTE | 2018-11-27 06:25 | NUR ---
STATUS PT SPONTANEOUSLY OPENING EYES WHEN CALLED MOVE HEAD TOWARD SOUND. WHEN CALLED AND ASKED IF SHE CAN HEAR ME SHE NODS YES. SHE WAS REORIENTED TO PLACE AND SITUATION ( [facility]) NODS YES. WHEN ASKED TO SQUEEZE HAND SHE SEEMS TO ATTEMPT TO SQUEEZE. WILL CONTINUE TO MONITOR.
[2018-11-27] MEDS ORDERED: PHARMACY COMMUNICATION MISC SCH (06:30)
[2018-11-27] MEDS: PANTOPRAZOLE SODIUM 80 MG in SODIUM CHLORIDE 0.9% 100 ML IV SCH ×2 (07:31→16:31)
[2018-11-27] MEDS: MEROPENEM 500 MG VIAL IVP SCH ×2 (08:39→21:43)
[2018-11-27] MEDS: FAMOTIDINE/PF 20 MG/2 ML VIAL IV SCH ×2 (08:39→21:43)
--- NOTE | 2018-11-27 09:58 | NUR ---
Patient still intubated and not ready for skilled PT Evaluation per GABRIELA Braxton. Addendum: 11/27/18 at 0959 by LUIS ANTONIO MULLEN, PT PT Amended: Links added.
[2018-11-27 10:11] LABS: ABG BASE EXCESS 7.5 mmol/L (-2.0-3.0); ABG HCO3 30.8 mmol/L (21.0-28.0); ABG OXYGEN SATURATION 95.3 % (95.0-99.0); ABG PCO2 38 mmHg (32-45)
--- NOTE | 2018-11-27 12:08 | NUR ---
CHART CHECK COMPLETED. Pt IS A 67 YEAR OLD FEMALE ADMITTED SECONDARY 3 VESSEL DISEASE S/P CABG. PT HAS A PAST MEDICAL HISTORY SIGNIFICANT FOR DMII,HYPERTENSION, DYSLIPIDEMIA, SHOCK LIVER, ANEMIA. Pt CURRENTLY INTUBATED. SKILLED SPEECH THERAPY IS RECOMMENDED 24 HOURS POST EXTUBATION. Addendum: 11/27/18 at 1215 by ORLANDO MIRELES, [facility] Amended: Links added.
--- NOTE | 2018-11-27 12:30 | NUR ---
DC PLAN PATIENT HAS BEEN IN CVR LAST COUPLE OF DAYS. PATIENT IS STILL VENTED. PATIENT IN CRITICAL CARE. CM WILL CONTINUE TO FOLLOW. ONCE PATIENT IS STABLE WILL DETERMINE DC PLAN. Addendum: 11/27/18 at 1232 by MARIN GRIMES RN CM Amended: Links added.
[2018-11-27 16:32] LABS: ABG BASE EXCESS 7.8 mmol/L (-2.0-3.0); ABG HCO3 32.6 mmol/L (21.0-28.0); ABG PCO2 46 mmHg (32-45)
--- NOTE | 2018-11-27 19:00 | NUR ---
assessment assumed care. intubated with et tube secure vent settings noted. not breathing over vent. facial grimaces noted to tactile & auditory stimuli, although does not open eyes. supine position d/t left femoral sheath in place. rt ij swan estela secure. left radial arterial line monitoring as well as left femoral arterial line monitoring - bedside monitor. sinus rhythm hr 80's. chest tubes secure & draining to 20cm h2o suction. garcia catheter secure & patent. mid sternal incision covered with dressing dry & intact. ble's with scd's. 1+ generalized edema noted. oral care provided. no family present at this time.
[2018-11-27 21:12] LABS: MAGNESIUM 2.2 mg/dL (1.80-2.40); POTASSIUM 3.3 mmol/L (3.5-5.1)
[2018-11-27] MEDS: ATORVASTATIN CALCIUM 20 MG TABLET PO SCH (21:43)
[2018-11-27] MEDS ORDERED: CALCIUM GLUCONATE 1 GM/10 ML VIAL IV ONE (22:15)
[2018-11-28] VITALS (34 sets, daily range): BP systolic 98–151; BP diastolic 40–67
--- NOTE | 2018-11-28 00:01 | NUR ---
DR THAKKAR HERE TO SEE PT UPDATED. HE ASSESSED PT/REVIEWED CHART. ORDERS RECEIVED & CARRIED OUT. LASIX DRIP DISCONTINUED ORDERED.
[2018-11-28] MEDS: HYDROCORTISONE SOD SUCCINATE 100 MG/2 ML VIAL IV SCH ×2 (00:34→15:07)
[2018-11-28] MEDS: INSULIN HUMULIN R 100 UNIT/ML 3ML SQ SCH ×4 (00:42→21:34)
[2018-11-28] MEDS ORDERED: FUROSEMIDE 10 MG/ML 2ML VIAL IV SCH (00:45)
[2018-11-28] MEDS ORDERED: FUROSEMIDE 10 MG/ML 2ML VIAL ONE (01:20)
[2018-11-28] MEDS: POTASSIUM CHLORIDE 20MEQ/100ML 100 ML IV PRN ×3 (01:29→08:13)
[2018-11-28] MEDS: IPRATROPIUM/ALBUTEROL SULFATE 3 ML SOLUTION IH SCH ×6 (02:07→21:28)
[2018-11-28 03:23] LABS: HEMATOCRIT 25.9 % (36-48); MEAN CORPUSCULAR HEMOGLOBIN 30.4 pg (27.0-33.0); MEAN CORPUSCULAR HGB CONC 34.3 g/dL (32.0-36.0); MEAN CORPUSCULAR VOLUME 88.6 fL (79-99); NUCLEATED RED BLOOD CELLS 0.2 % (0.0-0.19); RED BLOOD CELL COUNT(AUTO) 2.92 MIL/uL (4.00-5.50); RED CELL DISTRIBUTION WIDTH 15.6 % (11.0-15.5); WHITE BLOOD COUNT (AUTO) 14.3 K/uL (4.8-10.8)
[2018-11-28 03:29] LABS: PLATELET COUNT (AUTO) 8 K/uL (130-400)
--- NOTE | 2018-11-28 03:37 | NUR ---
PLATELET COUNT [address] THAKKAR. ORDERED TO STOP MEROPENEM.
[2018-11-28 03:41] LABS: INR 0.95 (0.85-1.15); PARTIAL THROMBOPLASTIN TIME 30.6 SEC (26.3-35.5)
[2018-11-28 03:52] LABS: ALBUMIN 2.1 g/dL (3.5-5.0); BILIRUBIN,TOTAL 2.8 mg/dL (0.2-1.0); CREATININE 3.4 mg/dL (0.5-1.5); POTASSIUM 3.3 mmol/L (3.5-5.1); TOTAL PROTEIN, SERUM 5.1 g/dL (6.0-8.3)
[2018-11-28] MEDS: PANTOPRAZOLE SODIUM 80 MG in SODIUM CHLORIDE 0.9% 100 ML IV SCH ×2 (04:30→15:02)
[2018-11-28 06:11] LABS: ABG BASE EXCESS 5.7 mmol/L (-2.0-3.0); ABG HCO3 29.8 mmol/L (21.0-28.0); ABG OXYGEN SATURATION 94.6 % (95.0-99.0); ABG PCO2 42 mmHg (32-45)
[2018-11-28] MEDS: FAMOTIDINE/PF 20 MG/2 ML VIAL IV SCH ×2 (08:12→21:35)
[2018-11-28] MEDS: FUROSEMIDE 10 MG/ML 2ML VIAL IV SCH ×2 (08:13→15:07)
--- NOTE | 2018-11-28 08:30 | NUR ---
PATIENT STARTED ON CPAP TRIALS. CPAP 11/28.
[2018-11-28 10:29] LABS: ABG BASE EXCESS 9.2 mmol/L (-2.0-3.0); ABG HCO3 34.3 mmol/L (21.0-28.0); ABG OXYGEN SATURATION 92.5 % (95.0-99.0); ABG PCO2 48 mmHg (32-45)
--- NOTE | 2018-11-28 10:51 | NUR ---
Nutrition Intervention: Nutrition screen due to pt. on tube Feedings. Pt. S/P CABG(11/24/18). S/P intubation on [facility] vent post CABG. TF with Glucerna 1.5 on Hold due to CPAP trial. As per nurse Aldridge, pt. with possible GI Bleed; TF to be reinitiated if MD approves. Labs reviewed(Alb 2.1, BUN 78, Creat 3.4, BG 276, AST/ALT 239/611, Alk Phos 213, T. Bili 2.8, Ammonia 17). LBM: 11/28/18. BMI: 36.5, Obesity Grade 2. Recommendations: 1) If/when medically feasible, rec. TF with Suplena@20ml/hr, increasing by 5ml every 5 hrs. to goal rate of 40ml/hr. 2) Rec. 130ml free water flushes every 4 hrs. 3) Continue to monitor pt's nutritional status. 4) Consult RD as nutrition concerns arise. Addendum: 11/28/18 at [address] Amended: Links added.
--- NOTE | 2018-11-28 11:03 | NUR ---
PATIENT IS NOT READY FOR PHYSICAL THERAPY EVALUATION TODAY PER GABRIELA DONIS.PATIENT STILL INTUBATED. Addendum: 11/28/18 at 1103 by LUIS ANTONIO MULLEN, PT PT Amended: Links added.
[2018-11-28] MEDS ORDERED: EPINEPHRINE 8 MG in DEXTROSE 5%-WATER 250 ML IV PRN (17:45)
--- NOTE | 2018-11-28 20:00 | NUR ---
DR THAKKAR HERE TO SEE PATIENT DR SHARP HERE WELL. THEY SPOKE REGARDING PATIENT STATUS AND PLAN OF CARE. NO ORDERS FROM DR SHARP AT THIS TIME.
[2018-11-28] MEDS ORDERED: PANTOPRAZOLE 40 MG/VIAL IVP SCH (21:00)
[2018-11-29] VITALS (31 sets, daily range): BP systolic 109–172; BP diastolic 44–81
[2018-11-29] MEDS: HYDROCORTISONE SOD SUCCINATE 100 MG/2 ML VIAL IV SCH ×2 (00:23→13:53)
[2018-11-29] MEDS: FUROSEMIDE 10 MG/ML 2ML VIAL IV SCH ×3 (00:23→15:50)
[2018-11-29] MEDS: INSULIN HUMULIN R 100 UNIT/ML 3ML SQ SCH ×4 (00:25→18:00)
[2018-11-29] MEDS: IPRATROPIUM/ALBUTEROL SULFATE 3 ML SOLUTION IH SCH ×6 (00:56→21:54)
[2018-11-29 07:13] LABS: CREATININE 2.6 mg/dL (0.5-1.5)
[2018-11-29 07:16] LABS: POTASSIUM 2.7 mmol/L (3.5-5.1)
[2018-11-29] MEDS: POTASSIUM CHLORIDE 20MEQ/100ML 100 ML IV PRN ×5 (07:20→23:12)
[2018-11-29 07:51] LABS: HEMATOCRIT 31.1 % (36-48); MEAN CORPUSCULAR HEMOGLOBIN 31.1 pg (27.0-33.0); MEAN CORPUSCULAR HGB CONC 34.9 g/dL (32.0-36.0); MEAN CORPUSCULAR VOLUME 88.9 fL (79-99); NUCLEATED RED BLOOD CELLS 0.1 % (0.0-0.19); PLATELET COUNT (AUTO) 11 K/uL (130-400); RED BLOOD CELL COUNT(AUTO) 3.49 MIL/uL (4.00-5.50); RED CELL DISTRIBUTION WIDTH 15.2 % (11.0-15.5); WHITE BLOOD COUNT (AUTO) 10.8 K/uL (4.8-10.8)
--- NOTE | 2018-11-29 08:55 | NUR ---
PT PLACED ON CPAP ORDERED. PT INSTRUCTED ON WEANING PROCESS AND IMPORTANCE OF DEEP BREATHING, PT NODS UNDERSTANDING. TOLERATING WELL. CONTINUE TO MONITOR PT.
[2018-11-29] MEDS: FAMOTIDINE/PF 20 MG/2 ML VIAL IV SCH ×2 (08:57→20:04)
--- NOTE | 2018-11-29 09:56 | NUR ---
hold PT Evaluation today, possible for extubation later today arnulfo Russo RN Addendum: 11/29/18 at 0957 by LUIS ANTONIO MULLEN PT PT Amended: Links added.
[2018-11-29 11:38] LABS: ABG HCO3 30.5 mmol/L (21.0-28.0); ABG OXYGEN SATURATION 92.6 % (95.0-99.0); ABG PCO2 43 mmHg (32-45)
--- NOTE | 2018-11-29 12:00 | NUR ---
PT TOLERATING CPAP TRIAL. PT WITH NIP -23 AND VITAL CAPACITY OF 825 ML. AWAKE AND FOLLOWING COMMANDS. DR. THAKKAR CALLED AND UPDATED ON ABG RESULTS. NEW ORDERS RECEIVED AND NOTED.
--- NOTE | 2018-11-29 13:30 | NUR ---
DR. KUNZ AT BEDSIDE FOR BRONCHOSCOPY. CONSENT SIGNED AND IN CHART. PT TOLERATED PROCEDURE WELL. DR. THAKKAR CALLED AND UPDATED. NEW ORDER RECEIVED AND NOTED.
[2018-11-29] MEDS ORDERED: LEVOFLOXACIN 500 MG/D5W 100 ML 100 ML IV SCH (15:00)
--- NOTE | 2018-11-29 15:40 | NUR ---
PT FULLY AWAKE, ABLE TO FOLLOW COMMANDS, PT ABLE TO SUSTAIN HEAD LIFT, NO NEURO DEFICIT NOTED. TOLERATING CPAP TRIAL. PT EXTUBATED ORDERED. PLACED ON AF 40 %. TOLERATING WELL. INSTRUCTED ON DEEP BREATHING AND COUGHING AND USE OF HEART PILLOW.
[2018-11-29] MEDS ORDERED: SODIUM CHLORIDE 0.9% 500ML 500 ML IV ONE ×2 (15:44→21:46)
[2018-11-29 16:54] LABS: INR 0.98 (0.85-1.15); PARTIAL THROMBOPLASTIN TIME 26.6 SEC (26.3-35.5); PROTHROMBIN TIME 10.3 SEC (9.6-11.6)
[2018-11-29 17:05] LABS: ABG BASE EXCESS 8.3 mmol/L (-2.0-3.0); ABG HCO3 33.7 mmol/L (21.0-28.0); ABG OXYGEN SATURATION 87.1 % (95.0-99.0); ABG PCO2 49 mmHg (32-45)
--- NOTE | 2018-11-29 17:09 | NUR ---
DR. THAKKAR AND DR. KUNZ AT BEDSIDE. PLAN OF CARE DISCUSSED. NOTIFIED OF REPEAT ABG RESULTS. NEW ORDERS RECEIVED AND NOTED.
--- NOTE | 2018-11-29 19:00 | NUR ---
ASSESSMENT ASSUMED CARE. AA&OX2 TO PERSON & PLACE. REORIENTED TO DATE & TIME. ON 60% AEROSOL FACE MASK. WITH O2 SAT 96%. NO RESPIRATORY DISTRESS NOTED. MIDSTERNAL INCISION COVERED WITH DRESSING DRY & INTACT. CHEST TUBES X2 SECURE & DRAINING SEROUS INTO ATRIUM AT 20CM H20 SUCTION. LEONE CATHETER PATENT & SECURE. RT FEMORAL ROSEY SECURE WITH SUTURE; DRESSING DRY & INTACT. LEFT RADIAL ARTERIAL LINE SECURE FOR IBP MONITORING; PALPABLE RADIAL PULSES; FINGERTIPS WARM & PINK. BLE'S WITH SCD'S. SINUS RHYTHM HR 80'S. INTRUCTED ON PLAN OF CARE. FULL ASSESSMENT DOCUMENTED.
[2018-11-29] MEDS ORDERED: ACETAMINOPHEN 325 MG TAB ONE (19:42)
[2018-11-29] MEDS ORDERED: ACETAMINOPHEN 325 MG TAB PO PRN (19:45)
--- NOTE | 2018-11-29 21:42 | NUR ---
AFIB RVR HR UP TO 150BPM NOTIFIED DR THAKKAR, REPORTED CURRENT V/S AND PT DENIES CHEST PAIN & PALPITATIONS. PLACED PT ON BIPAP 10/5 80% ORDERED. WILL INITIATE AMIODARONE PROTOCOL. INFORMED PT OF STATUS AND TREATMENT. NODDED IN UNDERSTANDING.
[2018-11-29] MEDS ORDERED: AMIODARONE HCL 150 MG in DEXTROSE 5%-WATER 100 ML IV SCH (21:45)
[2018-11-29] MEDS ORDERED: AMIODARONE HCL 900 MG in DEXTROSE 5%-WATER 500 ML IV SCH (21:45)
[2018-11-29] MEDS ORDERED: AMIODARONE HCL 50 MG/ML 3 ML VIAL ONE (21:46)
[2018-11-29] MEDS ORDERED: SODIUM CHLORIDE 0.9% 100 ML IV ONE (21:46)
[2018-11-29] MEDS ORDERED: AMIODARONE HCL 900MG/18ML IV ONE (21:46)
[2018-11-29 22:25] LABS: ABG BASE EXCESS 6.5 mmol/L (-2.0-3.0); ABG HCO3 31.3 mmol/L (21.0-28.0); ABG OXYGEN SATURATION 97.1 % (95.0-99.0); ABG PCO2 46 mmHg (32-45)
[2018-11-29 22:31] LABS: CREATININE 2.1 mg/dL (0.5-1.5); POTASSIUM 3.5 mmol/L (3.5-5.1)
[2018-11-30] VITALS (27 sets, daily range): BP systolic 86–163; BP diastolic 48–92
[2018-11-30] MEDS ORDERED: FUROSEMIDE 10 MG/ML 4ML VIAL IV SCH
[2018-11-30] MEDS: INSULIN HUMULIN R 100 UNIT/ML 3ML SQ SCH ×4 (00:38→18:29)
[2018-11-30] MEDS: HYDROCORTISONE SOD SUCCINATE 100 MG/2 ML VIAL IV SCH ×2 (00:39→12:58)
[2018-11-30] MEDS: POTASSIUM CHLORIDE 20MEQ/100ML 100 ML IV PRN ×3 (00:40→05:59)
--- NOTE | 2018-11-30 01:23 | NUR ---
MORE ALERT & AWAKE. COMMUNICATING NEEDS APPROPRIATELY. ASKING FOR FAMILY. REORIENTED HER TO TIME & NOTIFIED HER FAMILY WILL COME AGAIN TOMORROW DURING VISITING HOURS. SPEAKS IN A WHISPER. NO STRIDOR AUDIBLE. NO RESPIRATORY DISTRESS. REMOVED BIPAP TO MOISTEN ORAL CAVITY. ON [facility] AIR MATTRESS BED; PLACED ON ROTATION MODE TO PRESERVE SKIN INTEGRITY. CURRENTLY NO SKIN BREAKDOWN. Addendum: 11/30/18 at 0126 by MARCUS GUTIERREZ RN RN Amended: Links added.
[2018-11-30] MEDS: IPRATROPIUM/ALBUTEROL SULFATE 3 ML SOLUTION IH SCH ×6 (01:40→22:05)
[2018-11-30 04:22] LABS: HEMATOCRIT 35.4 % (36-48); MEAN CORPUSCULAR HEMOGLOBIN 30.4 pg (27.0-33.0); MEAN CORPUSCULAR HGB CONC 33.7 g/dL (32.0-36.0); PLATELET COUNT (AUTO) 17 K/uL (130-400); RED BLOOD CELL COUNT(AUTO) 3.93 MIL/uL (4.00-5.50); RED CELL DISTRIBUTION WIDTH 15.5 % (11.0-15.5); WHITE BLOOD COUNT (AUTO) 18.1 K/uL (4.8-10.8)
[2018-11-30 04:48] LABS: BILIRUBIN,TOTAL 2.2 mg/dL (0.2-1.0); CREATININE 1.9 mg/dL (0.5-1.5); MAGNESIUM 1.8 mg/dL (1.80-2.40); PHOSPHORUS 3.2 mg/dL (2.5-4.9); POTASSIUM 3.9 mmol/L (3.5-5.1); TOTAL PROTEIN, SERUM 5.2 g/dL (6.0-8.3)
[2018-11-30 04:48] LABS: ABG BASE EXCESS 10.4 mmol/L (-2.0-3.0); ABG OXYGEN SATURATION 95.2 % (95.0-99.0); ABG PCO2 51 mmHg (32-45)
[2018-11-30] MEDS: MAGNESIUM 2GM PREMIX 50ML 50 ML IV PRN (06:00)
[2018-11-30] MEDS ORDERED: DIGOXIN 250 MCG/ML 2ML AMP ONE (06:27)
[2018-11-30 06:29] LABS: ABG BASE EXCESS 9.3 mmol/L (-2.0-3.0); ABG HCO3 34.1 mmol/L (21.0-28.0); ABG OXYGEN SATURATION 95.3 % (95.0-99.0); ABG PCO2 47 mmHg (32-45)
[2018-11-30] MEDS ORDERED: DIGOXIN 250 MCG/ML 2ML AMP IV SCH (06:30)
[2018-11-30] MEDS ORDERED: DILTIAZEM HCL 5 MG/ML 10 ML VIAL IV SCH (07:15)
[2018-11-30] MEDS: ACETAZOLAMIDE SODIUM 500 MG VIAL IV SCH ×3 (07:52→20:50)
[2018-11-30] MEDS: DILTIAZEM 125MG+100 ML NS 125 ML IV PRN (07:52)
[2018-11-30] MEDS: CALCIUM GLUCONATE 1 GM in DEXTROSE 5%-WATER 50 ML IV PRN (08:14)
[2018-11-30] MEDS: MEROPENEM 500 MG VIAL IVP SCH ×2 (08:46→20:49)
[2018-11-30] MEDS: FAMOTIDINE/PF 20 MG/2 ML VIAL IV SCH ×2 (08:46→20:50)
[2018-11-30] MEDS: FUROSEMIDE 10 MG/ML 2ML VIAL IV SCH ×3 (08:46→18:28)
[2018-11-30] MEDS: INSULIN GLARGINE 100 UNITS/ML 10 ML VIAL SQ SCH ×2 (08:50→20:52)
[2018-11-30] MEDS ORDERED: METOPROLOL TARTRATE 25 MG TAB PO SCH (09:00)
--- NOTE | 2018-11-30 11:07 | NUR ---
10:25 PATIENT IS NOT READY FOR PHYSICAL THERAPY EVALUATION TODAY PER NURSING. (BIPAP MACHINE and still on FEMORAL LINE) Addendum: 11/30/18 at 1108 by LUIS ANTONIO MULLEN, PT PT Amended: Links added.
[2018-11-30] MEDS: DOXYCYCLINE 100MG+NS 250ML 250 ML IV SCH (12:58)
--- NOTE | 2018-11-30 19:00 | NUR ---
Assumed care at 1900. Patient awake, alert and oriented. Please view physical assessment for further detail.
[2018-11-30] MEDS: METOPROLOL TARTRATE 25 MG TAB PO SCH (20:50)
--- NOTE | 2018-11-30 21:18 | NUR ---
Pt didn't not tolerate High Flow NC became SOB and Desat. to 90% put back on Bipap. Addendum: 11/30/18 at 2119 by MAIDA JACKSON RT Amended: Links added.
[2018-12-01] VITALS (26 sets, daily range): BP systolic 63–181; BP diastolic 41–87
[2018-12-01] MEDS: INSULIN HUMULIN R 100 UNIT/ML 3ML SQ SCH ×4 (00:18→20:31)
[2018-12-01] MEDS: DOXYCYCLINE 100MG+NS 250ML 250 ML IV SCH ×2 (00:19→15:38)
[2018-12-01] MEDS: FUROSEMIDE 10 MG/ML 2ML VIAL IV SCH ×4 (00:19→20:30)
--- NOTE | 2018-12-01 00:30 | NUR ---
Patient pulled out NG tube. Tip intact. Attempted NG placement, but O2 saturation quickly dropped to 70s. Patient immediately placed on BiPAP. Will attempt to reinsert.
[2018-12-01] MEDS: IPRATROPIUM/ALBUTEROL SULFATE 3 ML SOLUTION IH SCH ×6 (01:30→21:28)
[2018-12-01] MEDS: HYDROCORTISONE SOD SUCCINATE 100 MG/2 ML VIAL IV SCH ×2 (02:42→15:38)
[2018-12-01 03:54] LABS: ALBUMIN 1.9 g/dL (3.5-5.0); CREATININE 1.5 mg/dL (0.5-1.5); INR 1.06 (0.85-1.15); PARTIAL THROMBOPLASTIN TIME 26.6 SEC (26.3-35.5); PHOSPHORUS 2.3 mg/dL (2.5-4.9); PROTHROMBIN TIME 11.1 SEC (9.6-11.6); TOTAL PROTEIN, SERUM 5.1 g/dL (6.0-8.3)
[2018-12-01 03:59] LABS: ABG BASE EXCESS 8.4 mmol/L (-2.0-3.0); ABG HCO3 33.5 mmol/L (21.0-28.0); ABG OXYGEN SATURATION 95.3 % (95.0-99.0); ABG PCO2 48 mmHg (32-45)
[2018-12-01 04:03] LABS: HEMATOCRIT 40.4 % (36-48); MEAN CORPUSCULAR HEMOGLOBIN 29.8 pg (27.0-33.0); MEAN CORPUSCULAR HGB CONC 33.2 g/dL (32.0-36.0); MEAN CORPUSCULAR VOLUME 89.7 fL (79-99); PLATELET COUNT (AUTO) 43 K/uL (130-400); RED BLOOD CELL COUNT(AUTO) 4.51 MIL/uL (4.00-5.50); RED CELL DISTRIBUTION WIDTH 15.4 % (11.0-15.5); WHITE BLOOD COUNT (AUTO) 21.6 K/uL (4.8-10.8)
[2018-12-01 04:22] LABS: POTASSIUM 2.3 mmol/L (3.5-5.1)
[2018-12-01] MEDS: POTASSIUM CHLORIDE 20MEQ/100ML 100 ML IV PRN ×5 (04:36→20:48)
[2018-12-01] MEDS ORDERED: PHARMACY COMMUNICATION MISC SCH ×2 (05:00→06:15)
[2018-12-01] MEDS: ACETAZOLAMIDE SODIUM 500 MG VIAL IV SCH ×3 (06:02→21:08)
[2018-12-01] MEDS: DILTIAZEM 125MG+100 ML NS 125 ML IV PRN (06:43)
[2018-12-01] MEDS: METOPROLOL TARTRATE 25 MG TAB PO SCH (08:01)
[2018-12-01] MEDS: MEROPENEM 500 MG VIAL IVP SCH ×2 (08:01→20:40)
[2018-12-01] MEDS: FAMOTIDINE/PF 20 MG/2 ML VIAL IV SCH ×2 (08:01→20:40)
[2018-12-01] MEDS: INSULIN GLARGINE 100 UNITS/ML 10 ML VIAL SQ SCH ×2 (08:03→20:55)
[2018-12-01] MEDS ORDERED: METOPROLOL TARTRATE 25 MG TAB ONE (09:52)
--- NOTE | 2018-12-01 15:37 | NUR ---
RONALD FOLLOW UP Pt continues on Tube feedings, Suplena @45mls. Pt tolerating tube feedings with no reported GI distress. Tube feedings to be continued at this time. Addendum: 12/01/18 at [address] Amended: Links added.
--- NOTE | 2018-12-01 15:39 | NUR ---
RD NOTE ADDENDUM Pt LBM 12/01/18. Pt monitored labs: K 3.0, Na 156, Cl 116, CO2 35, BUN 81, GFR 37, Glu 204, Ca 8.2, P 2.3, T. Bili 2.0, AST 52, ALT 228, Alk 184, Alb 1.9. Pt with fluid overload, diuretic therapy as per RN. RD to continue to monitor. Please notify RD as additional nutrition concerns arise. Thank you. Addendum: 12/01/18 at [address] Amended: Links added.
--- NOTE | 2018-12-01 15:56 | NUR ---
win PT Evaluation this AM per GABRIELA Valdivia Addendum: 12/01/18 at 1558 by LUIS ANTONIO MULLEN PT PT Amended: Links added.
--- NOTE | 2018-12-01 19:00 | NUR ---
Assumed care at 1900. Patient laying supine with HOB 20 degrees with BiPAP in place. Family member at bedside. Patient in no apparent distress. Please see physical assessment for further detail. Will continue to monitor.
[2018-12-01] MEDS: METOPROLOL TARTRATE 50 MG TAB PO SCH (20:41)
[2018-12-01] MEDS ORDERED: SODIUM CHLORIDE 0.9% 500ML 1,000 ML IV ONE (22:33)
[2018-12-02] VITALS (20 sets, daily range): BP systolic 99–154; BP diastolic 36–69
[2018-12-02] MEDS: POTASSIUM CHLORIDE 20MEQ/100ML 100 ML IV PRN ×8 (00:28→21:06)
[2018-12-02] MEDS: INSULIN HUMULIN R 100 UNIT/ML 3ML SQ SCH ×4 (00:29→21:01)
[2018-12-02] MEDS: FUROSEMIDE 10 MG/ML 2ML VIAL IV SCH ×4 (00:30→17:34)
[2018-12-02] MEDS: DOXYCYCLINE 100MG+NS 250ML 250 ML IV SCH ×2 (00:32→11:59)
[2018-12-02] MEDS: HYDROCORTISONE SOD SUCCINATE 100 MG/2 ML VIAL IV SCH (00:52)
[2018-12-02] MEDS: IPRATROPIUM/ALBUTEROL SULFATE 3 ML SOLUTION IH SCH ×6 (01:40→21:42)
[2018-12-02 03:44] LABS: CREATININE 1.3 mg/dL (0.5-1.5); MAGNESIUM 1.7 mg/dL (1.80-2.40)
[2018-12-02 03:48] LABS: HEMATOCRIT 33.7 % (36-48); MEAN CORPUSCULAR HEMOGLOBIN 30.3 pg (27.0-33.0); MEAN CORPUSCULAR HGB CONC 32.8 g/dL (32.0-36.0); MEAN CORPUSCULAR VOLUME 92.4 fL (79-99); NUCLEATED RED BLOOD CELLS 0.1 % (0.0-0.19); PLATELET COUNT (AUTO) 63 K/uL (130-400); RED BLOOD CELL COUNT(AUTO) 3.65 MIL/uL (4.00-5.50); RED CELL DISTRIBUTION WIDTH 15.8 % (11.0-15.5)
[2018-12-02] MEDS: MAGNESIUM 2GM PREMIX 50ML 50 ML IV PRN (03:55)
[2018-12-02] MEDS ORDERED: PHARMACY COMMUNICATION MISC SCH (05:45)
[2018-12-02] MEDS: INSULIN GLARGINE 100 UNITS/ML 10 ML VIAL SQ SCH ×2 (06:52→18:31)
[2018-12-02 07:23] LABS: ABG BASE EXCESS 3.1 mmol/L (-2.0-3.0); ABG HCO3 27.5 mmol/L (21.0-28.0); ABG OXYGEN SATURATION 93.5 % (95.0-99.0); ABG PCO2 41 mmHg (32-45)
[2018-12-02] MEDS: MEROPENEM 500 MG VIAL IVP SCH (08:33)
[2018-12-02] MEDS: METOPROLOL TARTRATE 50 MG TAB PO SCH ×2 (08:33→20:52)
[2018-12-02] MEDS: ACETAZOLAMIDE SODIUM 500 MG VIAL IV SCH ×3 (09:30→22:37)
[2018-12-02] MEDS: FAMOTIDINE/PF 20 MG/2 ML VIAL IV SCH (09:30)
[2018-12-02] MEDS ORDERED: MEROPENEM 1 GM VIAL IVP SCH (12:30)
--- NOTE | 2018-12-02 13:58 | NUR ---
DYSPHAGIA EVAL COMPLETED. +S/S OF ASPIRATION WITH THIN LIQUIDS. RECOMMEND PUREED, NECTAR-THICK LIQUIDS; PILLS CRUSHED WITH APPLESAUCE. Addendum: 12/02/18 at 1401 by ORLANDO MIRELES, [facility] ST Amended: Links added.
--- NOTE | 2018-12-02 20:34 | NUR ---
Assumed care at 1900. Patient supine with HOB 30 degrees receiving high flow oxygen via nasal cannula. Patient in no apparent distress. Please see physical assessment for further details. Will continue to monitor.
[2018-12-02] MEDS: MEROPENEM 1 GM VIAL IVP SCH (20:51)
[2018-12-02] MEDS: POTASSIUM CHLORIDE 20 MEQ ERTAB PO PRN (21:06)
[2018-12-03] VITALS (21 sets, daily range): BP systolic 110–149; BP diastolic 33–69
[2018-12-03] MEDS: POTASSIUM CHLORIDE 20MEQ/100ML 100 ML IV PRN
[2018-12-03] MEDS: IPRATROPIUM/ALBUTEROL SULFATE 3 ML SOLUTION IH SCH ×6 (01:53→21:27)
[2018-12-03 03:52] LABS: HEMATOCRIT 34.3 % (36-48); MEAN CORPUSCULAR HGB CONC 32.9 g/dL (32.0-36.0); MEAN CORPUSCULAR VOLUME 91.2 fL (79-99); PLATELET COUNT (AUTO) 93 K/uL (130-400); RED BLOOD CELL COUNT(AUTO) 3.77 MIL/uL (4.00-5.50); RED CELL DISTRIBUTION WIDTH 15.6 % (11.0-15.5); WHITE BLOOD COUNT (AUTO) 23.2 K/uL (4.8-10.8)
[2018-12-03 04:01] LABS: CREATININE 1.1 mg/dL (0.5-1.5); POTASSIUM 3.6 mmol/L (3.5-5.1)
[2018-12-03] MEDS: MEROPENEM 1 GM VIAL IVP SCH ×3 (04:35→19:57)
[2018-12-03] MEDS: FUROSEMIDE 10 MG/ML 2ML VIAL IV SCH ×4 (06:02→16:36)
[2018-12-03] MEDS: INSULIN HUMULIN R 100 UNIT/ML 3ML SQ SCH ×4 (06:36→20:22)
[2018-12-03] MEDS: INSULIN GLARGINE 100 UNITS/ML 10 ML VIAL SQ SCH ×2 (06:44→20:17)
[2018-12-03] MEDS: FAMOTIDINE 20MG TAB 20 MG TAB PO SCH (08:42)
[2018-12-03] MEDS: METOPROLOL TARTRATE 50 MG TAB PO SCH ×2 (08:42→20:16)
[2018-12-03] MEDS: HYDROCORTISONE SOD SUCCINATE 100 MG/2 ML VIAL IV SCH (08:43)
[2018-12-03] MEDS: POTASSIUM CHLORIDE 20 MEQ ERTAB PO PRN ×2 (08:43)
--- NOTE | 2018-12-03 09:24 | NUR ---
Chrissy ORDAZ TIP OUT WORKER AT BEDSIDE TO SEE PT. PLAN OF CARE DISCUSSED.
[2018-12-03] MEDS: DOXYCYCLINE 100MG+NS 250ML 250 ML IV SCH ×2 (11:52)
--- NOTE | 2018-12-03 13:17 | NUR ---
SWALLOW TREATMENT COMPLETED. S: Pt RAISED TO 90 DEGREES IN BED. DAUGHTER AND DAUGHTER IN LAW PRESENT AT THE TIME OF THE SESSION. Pt COOPERATIVE WITH COAXING AND REQUIRED REDIRECTION DURING THE SESSION. O: Pt CURRENTLY TARGETING SWALLOWING GOALS. RESULTS ARE FOLLOWS: STG1: PT WILL TOLERATE PUREED, NECTAR-THICK LIQUIDS WITH NO OVERT S/S OF ASPIRATION: 10 TRIALS PROVIDED WITH Pt DEMONSTRATING IMPULSIVITY WITH P.O. Pt WITH ANTERIOR SPILLAGE REQUIRING STRAW AT THIS TIME. NO OVERT S/S OF ASPIRATION PRESENT AT THIS TIME. STG2:Pt WILL COMPLETED LARYNGEAL ELEVATION/EXERCISES WITH 80% ACCURACY: Pt COMPLETED EXERCISES WITH 50% ACCURACY GIVEN MAX CUES. STG3: SKILLED EDUCATION Pt/FAMILY/STAFF: COMPLETED. ALL QUESTIONS ANSWERED. A: Pt WITH IMPROVED VOCAL QUALITY. Pt WITH 60% O2 VIA NASAL CANNULA. Pt WITH POOR ACTIVITY TOLERANCE. P: RECOMMEND CONTINUED SKILLED SPEECH THERAPY TARGETING SWALLOWING. RECOMMEND CONTINUED PUREED, NECTAR-THICK LIQUIDS; PILLS CRUSHED, SEATED AT 90 DEGREES, SLOW RATE, SMALL BITES AND SIPS. PROFESSOR OF FAMILY MEDICINE COORDINATED CARE WITH NURSE SAEED. Addendum: 12/03/18 at 1317 by ORLANDO MIRELES, [facility] ST Amended: Links added.
[2018-12-03] MEDS: DEXTROSE 5%-WATER 1,000 ML IV SCH ×2 (14:46→22:30)
--- NOTE | 2018-12-03 20:00 | NUR ---
ASSESSMENT AWAKE. RESTING IN BED. DENIES PAIN. ENCOURAGED TO CALL FOR WANTS OR NEEDS. ASSESSMENT COMPLETED SEE FLOW SHEET. Addendum: 12/03/18 at 2157 by SAILAJA CABRAL RN RN Amended: Links added.
[2018-12-04] VITALS (23 sets, daily range): BP systolic 105–159; BP diastolic 41–67
[2018-12-04] MEDS: DOXYCYCLINE 100MG+NS 250ML 250 ML IV SCH ×2 (00:46→12:09)
[2018-12-04] MEDS: FUROSEMIDE 10 MG/ML 2ML VIAL IV SCH ×4 (00:47→17:27)
[2018-12-04] MEDS: IPRATROPIUM/ALBUTEROL SULFATE 3 ML SOLUTION IH SCH ×6 (01:45→22:01)
[2018-12-04 03:44] LABS: HEMATOCRIT 36.1 % (36-48); MEAN CORPUSCULAR HEMOGLOBIN 30.2 pg (27.0-33.0); MEAN CORPUSCULAR HGB CONC 32.5 g/dL (32.0-36.0); MEAN CORPUSCULAR VOLUME 92.8 fL (79-99); PLATELET COUNT (AUTO) 85 K/uL (130-400); RED BLOOD CELL COUNT(AUTO) 3.89 MIL/uL (4.00-5.50); RED CELL DISTRIBUTION WIDTH 16.3 % (11.0-15.5); WHITE BLOOD COUNT (AUTO) 21.2 K/uL (4.8-10.8)
[2018-12-04 04:22] LABS: POTASSIUM 2.9 mmol/L (3.5-5.1)
[2018-12-04] MEDS: LIDOCAINE HCL-MPF 1% 2ML VIAL IV PRN (04:39)
[2018-12-04] MEDS: POTASSIUM CHLORIDE 20MEQ/100ML 100 ML IV PRN (04:39)
[2018-12-04] MEDS: MEROPENEM 1 GM VIAL IVP SCH ×3 (04:44→21:11)
[2018-12-04] MEDS: INSULIN GLARGINE 100 UNITS/ML 10 ML VIAL SQ SCH ×2 (06:36→21:10)
[2018-12-04] MEDS: INSULIN HUMULIN R 100 UNIT/ML 3ML SQ SCH ×4 (06:50→21:11)
[2018-12-04] MEDS: METOPROLOL TARTRATE 50 MG TAB PO SCH ×2 (09:08→21:12)
[2018-12-04] MEDS: FAMOTIDINE 20MG TAB 20 MG TAB PO SCH (09:08)
[2018-12-04] MEDS: HYDROCORTISONE SOD SUCCINATE 100 MG/2 ML VIAL IV SCH (09:08)
--- NOTE | 2018-12-04 11:55 | NUR ---
[facility] CONSULT PATIENT ASSESSED REQUESTED: PATIENT PRESENTS WITH DIABETIC FOOT ULCER TO FOOT LATERAL; [facility] RECOMMENDATIONS SUBMITTED. Addendum: 12/04/18 at 1156 by MELL TIWARI LVN LVN W Amended: Links added.
--- NOTE | 2018-12-04 11:56 | NUR ---
DC PLAN VISITED WITH PATIENT. PATIENT CONFUSED WITH DOMINGA. DR. ADAME PLACED REFERRAL FOR [facility]. PATIENT IS SELF PAY NON FUNDED NOT ABLE TO GO TO FACILITY. SPOKE TO SOME FAMILY FRIENDS. WILL TALK TO DAUGHTER ONCE PATIENT IS STABLE. AT THIS TIME PLAN IS TO RETURN HOME. Addendum: 12/04/18 at 1157 by MARIN GRIMES RN CM Amended: Links added.
--- NOTE | 2018-12-04 14:11 | NUR ---
RD FOLLOW UP NOTE Pt tolerating current diet order, as per RN. Pt sleeping upon visit. PO intake 100%. Pt LBM 12/02/18. Noted labs: Na 154, K 2.9, Cl 120, BUN 73, GFR 59, Glu 193, Ca 7.3. RD to continue to monitor. Please notify as nutritional concerns arise. Thank you. Addendum: 12/04/18 at [address] Amended: Links added.
[2018-12-04] MEDS: DEXTROSE 5%-WATER 1,000 ML IV SCH ×2 (14:38→18:45)
[2018-12-05] VITALS (30 sets, daily range): BP systolic 73–150; BP diastolic 33–79
[2018-12-05] MEDS: FUROSEMIDE 10 MG/ML 2ML VIAL IV SCH ×4 (00:22→17:47)
[2018-12-05] MEDS: DOXYCYCLINE 100MG+NS 250ML 250 ML IV SCH ×3 (00:22→23:49)
[2018-12-05] MEDS: DEXTROSE 5%-WATER 1,000 ML IV SCH ×3 (00:23→21:44)
[2018-12-05] MEDS: IPRATROPIUM/ALBUTEROL SULFATE 3 ML SOLUTION IH SCH ×6 (01:46→21:43)
[2018-12-05 03:57] LABS: CREATININE 0.9 mg/dL (0.5-1.5); MAGNESIUM 1.7 mg/dL (1.80-2.40)
[2018-12-05] MEDS: MEROPENEM 1 GM VIAL IVP SCH ×3 (05:41→19:45)
[2018-12-05] MEDS: INSULIN HUMULIN R 100 UNIT/ML 3ML SQ SCH ×4 (05:41→20:47)
[2018-12-05] MEDS: MAGNESIUM 2GM PREMIX 50ML 50 ML IV PRN (05:42)
[2018-12-05] MEDS: POTASSIUM CHLORIDE 10% ELIXIR 20 MEQ/15 ML UDCUP PO PRN ×2 (05:42→10:18)
[2018-12-05] MEDS: INSULIN GLARGINE 100 UNITS/ML 10 ML VIAL SQ SCH ×2 (06:02→20:48)
[2018-12-05] MEDS: HYDROCORTISONE SOD SUCCINATE 100 MG/2 ML VIAL IV SCH (08:46)
[2018-12-05] MEDS: METOPROLOL TARTRATE 50 MG TAB PO SCH ×2 (08:46→20:31)
[2018-12-05] MEDS: FAMOTIDINE 20MG TAB 20 MG TAB PO SCH (08:46)
[2018-12-05 09:56] LABS: BASOPHILS % (AUTO) 0.4 % (0.0-5.0); EOSINOPHILS % (AUTO) 0.9 % (0.0-8.0); MEAN CORPUSCULAR HEMOGLOBIN 29.8 pg (27.0-33.0); MEAN CORPUSCULAR HGB CONC 33.3 g/dL (32.0-36.0); MEAN CORPUSCULAR VOLUME 89.6 fL (79-99); MONOCYTES % (AUTO) 3.8 % (3.0-13.0); NEUTROPHILS % (AUTO) 89.9 % (40.0-77.0); PLATELET COUNT (AUTO) 77 K/uL (130-400); RED BLOOD CELL COUNT(AUTO) 3.79 MIL/uL (4.00-5.50); RED CELL DISTRIBUTION WIDTH 15.8 % (11.0-15.5); WHITE BLOOD COUNT (AUTO) 19.2 K/uL (4.8-10.8)
[2018-12-05] MEDS: POTASSIUM CHLORIDE 20MEQ/100ML 100 ML IV PRN ×2 (14:20→21:44)
[2018-12-05] MEDS ORDERED: LACTATED RINGERS 1000ML 1,000 ML IV ONE (21:19)
[2018-12-05] MEDS ORDERED: LACTATED RINGERS 1000ML 1,000 ML IV SCH (21:30)
[2018-12-05] MEDS ORDERED: NOREPINEPHRINE 4MG/NS 250ML 250 ML IV SCH (21:30)
[2018-12-05] MEDS: LIDOCAINE HCL-MPF 1% 2ML VIAL IV PRN (21:44)
[2018-12-06] VITALS (24 sets, daily range): BP systolic 103–145; BP diastolic 42–60
[2018-12-06] MEDS: IPRATROPIUM/ALBUTEROL SULFATE 3 ML SOLUTION IH SCH ×6 (01:04→22:01)
[2018-12-06] MEDS: MEROPENEM 1 GM VIAL IVP SCH ×3 (03:30→20:56)
[2018-12-06 04:15] LABS: BASOPHILS % (AUTO) 0.1 % (0.0-5.0); EOSINOPHILS % (AUTO) 0.4 % (0.0-8.0); HEMATOCRIT 29.6 % (36-48); LYMPHOCYTES % (AUTO) 4.2 % (21.0-51.0); MEAN CORPUSCULAR HEMOGLOBIN 30.4 pg (27.0-33.0); MEAN CORPUSCULAR HGB CONC 33.3 g/dL (32.0-36.0); MEAN CORPUSCULAR VOLUME 91.2 fL (79-99); MONOCYTES % (AUTO) 3.2 % (3.0-13.0); NEUTROPHILS % (AUTO) 92.1 % (40.0-77.0); PLATELET COUNT (AUTO) 81 K/uL (130-400); RED BLOOD CELL COUNT(AUTO) 3.24 MIL/uL (4.00-5.50); RED CELL DISTRIBUTION WIDTH 15.9 % (11.0-15.5); WHITE BLOOD COUNT (AUTO) 19.9 K/uL (4.8-10.8)
[2018-12-06 04:30] LABS: POTASSIUM 4.2 mmol/L (3.5-5.1)
[2018-12-06] MEDS: FUROSEMIDE 10 MG/ML 2ML VIAL IV SCH ×5 (06:00→23:18)
[2018-12-06] MEDS: INSULIN HUMULIN R 100 UNIT/ML 3ML SQ SCH ×4 (06:04→20:23)
[2018-12-06] MEDS: INSULIN GLARGINE 100 UNITS/ML 10 ML VIAL SQ SCH ×2 (06:43→20:56)
[2018-12-06 07:58] LABS: ABG BASE EXCESS 0.5 mmol/L (-2.0-3.0); ABG HCO3 26.4 mmol/L (21.0-28.0); ABG OXYGEN SATURATION 94.9 % (95.0-99.0); ABG PCO2 47 mmHg (32-45)
[2018-12-06] MEDS: HYDROCORTISONE SOD SUCCINATE 100 MG/2 ML VIAL IV SCH (09:53)
[2018-12-06] MEDS: FAMOTIDINE 20MG TAB 20 MG TAB PO SCH (09:53)
[2018-12-06] MEDS: HONEY 1 APPL/ML TUBE TP SCH (09:53)
[2018-12-06] MEDS: METOPROLOL TARTRATE 50 MG TAB PO SCH ×2 (09:53→20:56)
[2018-12-06] MEDS: DOXYCYCLINE 100MG+NS 250ML 250 ML IV SCH ×2 (13:29→23:18)
--- NOTE | 2018-12-06 16:21 | NUR ---
INTERVENTION WAS DONE BY SRINIVASAN SORIANO Addendum: 12/06/18 at 1622 by SRINIVASAN SORIANO, RT RT Amended: Links added.
[2018-12-06 16:43] LABS: INR 1.02 (0.85-1.15); PARTIAL THROMBOPLASTIN TIME 30.3 SEC (26.3-35.5); PROTHROMBIN TIME 10.7 SEC (9.6-11.6)
[2018-12-07] VITALS (24 sets, daily range): BP systolic 113–160; BP diastolic 42–92
[2018-12-07] MEDS: IPRATROPIUM/ALBUTEROL SULFATE 3 ML SOLUTION IH SCH ×6 (02:01→22:56)
--- NOTE | 2018-12-07 03:22 | NUR ---
CPT held at this time. Patient is tachypneic (38-41bpm), and is using some accessory muscles. Addendum: 12/07/18 at 0324 by ADI OTOOLE, RT RT Amended: Links added.
[2018-12-07] MEDS: MEROPENEM 1 GM VIAL IVP SCH ×3 (03:32→20:06)
[2018-12-07 04:04] LABS: BASOPHILS % (AUTO) 0.2 % (0.0-5.0); EOSINOPHILS % (AUTO) 0.6 % (0.0-8.0); HEMATOCRIT 29.1 % (36-48); LYMPHOCYTES % (AUTO) 3.9 % (21.0-51.0); MEAN CORPUSCULAR HEMOGLOBIN 29.8 pg (27.0-33.0); MEAN CORPUSCULAR HGB CONC 33.6 g/dL (32.0-36.0); MEAN CORPUSCULAR VOLUME 88.7 fL (79-99); MONOCYTES % (AUTO) 3.5 % (3.0-13.0); NEUTROPHILS % (AUTO) 91.8 % (40.0-77.0); PLATELET COUNT (AUTO) 101 K/uL (130-400); RED BLOOD CELL COUNT(AUTO) 3.28 MIL/uL (4.00-5.50); RED CELL DISTRIBUTION WIDTH 16.1 % (11.0-15.5); WHITE BLOOD COUNT (AUTO) 16.8 K/uL (4.8-10.8)
[2018-12-07 04:11] LABS: POTASSIUM 3.6 mmol/L (3.5-5.1)
[2018-12-07] MEDS: POTASSIUM CHLORIDE 10% ELIXIR 20 MEQ/15 ML UDCUP PO PRN ×2 (04:50→09:28)
[2018-12-07] MEDS: INSULIN HUMULIN R 100 UNIT/ML 3ML SQ SCH ×3 (06:00→17:15)
[2018-12-07] MEDS: FUROSEMIDE 10 MG/ML 2ML VIAL IV SCH ×4 (06:22→22:45)
[2018-12-07] MEDS: HYDROCORTISONE SOD SUCCINATE 100 MG/2 ML VIAL IV SCH (09:15)
[2018-12-07] MEDS: METOPROLOL TARTRATE 50 MG TAB PO SCH ×2 (09:15→20:06)
[2018-12-07] MEDS: FAMOTIDINE 20MG TAB 20 MG TAB PO SCH (09:15)
[2018-12-07] MEDS: INSULIN GLARGINE 100 UNITS/ML 10 ML VIAL SQ SCH ×2 (09:16→22:16)
[2018-12-07] MEDS: HONEY 1 APPL/ML TUBE TP SCH (09:18)
[2018-12-07 11:47] LABS: ALBUMIN 1.6 g/dL (3.5-5.0); BILIRUBIN,TOTAL 1.7 mg/dL (0.2-1.0); TOTAL PROTEIN, SERUM 4.9 g/dL (6.0-8.3)
--- NOTE | 2018-12-07 13:03 | NUR ---
HOLD Pt DOWNGRADED TO NPO, NG TUBE OVER THE WEEKEND SECONDARY TO POOR RESPIRATORY STATUS ON AND OFF OF BIPAP. RECOMMEND HOLD ON RE-EVALUATION AT THIS TIME. COTTON CLASSER COORDINATED WITH NURSE SAEED. COTTON CLASSER WILL CONTINUE TO FOLLOW Pt. Addendum: 12/07/18 at 1305 by ORLANDO MIRELES, SPT ST Amended: Links added.
[2018-12-07] MEDS: DOXYCYCLINE 100MG+NS 250ML 250 ML IV SCH ×2 (13:38→22:45)
--- NOTE | 2018-12-07 15:25 | NUR ---
intervention done by srinivasan reid at this time Addendum: 12/07/18 at 1526 by SRINIVASAN REID, RT RT Amended: Links added.
--- NOTE | 2018-12-07 15:26 | NUR ---
RD FOLLOW UP RD notification for tube feeding recommendations received. Recommend: Glucerna 1.5, Goal 45mls/hr (1620kcal/89gm protein). Rec Flushes: 250mL Q6hrs. Tube feeding recommendations placed in Pt chart. Pt LBM 12/06/18. Pt monitored labs: H&H 9.8/29.1, Na 151, Cl 116, BUN 73, Glu 148, Ca 7.5, T. Bili 1.7, AST 50, Alk 148, Alb 1.6, Cr 1.0. RD to continue to monitor. Please notify RD as additional nutrition concerns arise. Thank you. Addendum: 12/07/18 at [address] Amended: Links added.
--- NOTE | 2018-12-07 15:27 | NUR ---
intervention by srinivasan reid at this time Addendum: 12/07/18 at 1528 by SRINIVASAN REID, RT RT Amended: Links added.
[2018-12-07] MEDS ORDERED: ENOXAPARIN SODIUM 30 MG/0.3 ML SQ SCH (21:00)
[2018-12-07] MEDS ORDERED: ASPIRIN 325 MG TABLET PO SCH (21:00)
[2018-12-08] VITALS (13 sets, daily range): BP systolic 138–151; BP diastolic 48–71
[2018-12-08] MEDS: IPRATROPIUM/ALBUTEROL SULFATE 3 ML SOLUTION IH SCH ×6 (02:39→21:26)
[2018-12-08] MEDS: MEROPENEM 1 GM VIAL IVP SCH ×2 (04:45→11:16)
[2018-12-08 05:09] LABS: HEMATOCRIT 28.7 % (36-48); MEAN CORPUSCULAR HEMOGLOBIN 30.3 pg (27.0-33.0); MEAN CORPUSCULAR HGB CONC 33.9 g/dL (32.0-36.0); MEAN CORPUSCULAR VOLUME 89.4 fL (79-99); PLATELET COUNT (AUTO) 109 K/uL (130-400); RED BLOOD CELL COUNT(AUTO) 3.22 MIL/uL (4.00-5.50); WHITE BLOOD COUNT (AUTO) 11.8 K/uL (4.8-10.8)
[2018-12-08] MEDS: INSULIN HUMULIN R 100 UNIT/ML 3ML SQ SCH ×4 (05:59→18:00)
[2018-12-08 06:41] LABS: CREATININE 0.9 mg/dL (0.5-1.5); POTASSIUM 3.7 mmol/L (3.5-5.1)
[2018-12-08] MEDS: FUROSEMIDE 10 MG/ML 2ML VIAL IV SCH (06:49)
[2018-12-08] MEDS: FAMOTIDINE 20MG TAB 20 MG TAB PO SCH (08:14)
[2018-12-08] MEDS: METOPROLOL TARTRATE 50 MG TAB PO SCH (08:14)
[2018-12-08] MEDS: POTASSIUM CHLORIDE 10% ELIXIR 20 MEQ/15 ML UDCUP PO PRN (08:15)
[2018-12-08] MEDS: HONEY 1 APPL/ML TUBE TP SCH (08:16)
[2018-12-08] MEDS: INSULIN GLARGINE 100 UNITS/ML 10 ML VIAL SQ SCH (08:16)
[2018-12-08] MEDS ORDERED: FUROSEMIDE 10 MG/ML 2ML VIAL IV SCH (12:00)
[2018-12-08] MEDS: DOXYCYCLINE 100MG+NS 250ML 250 ML IV SCH (12:15)
--- NOTE | 2018-12-08 19:20 | NUR ---
1140 transfer request to [facility]. 1150 [facility] with [facility] information provided 1210 information fax [phone] HS call back with administrative approval by Luis Carlos land. Dr to 1:1 report pending Elizabeth carvajal made aware provided with Dr Garfield Summers [phone] provided. 1500 [facility] Aly call back with bed assignment room 205 and primary nurse to call report to [phone] telephone consent obtained from daughter Moshe miranda. EMS set up and now awaiting for EMS. Richard angel
--- NOTE | 2018-12-09 18:14 | NUR ---
EMS was told that patient was only tolerating being on Hi Filiberto N/C or BIPAP. Addendum: 12/09/18 at 1827 by CLIVE TRAN Amended: Links added.
== END 2018-12-08 22:36 | disposition short-term general hospital (02) | DRG 853 ==
LOC: 2CH 11:31 → 2CV 11-24 09:05 → 2CH 11-27 04:52 → 2BH 12-01 19:10 → 2DH 12-08 11:43
PROVIDERS: ADMIT Thoracic Surgery (Cardiothoracic Vascular Surgery); ATTEND Thoracic Surgery (Cardiothoracic Vascular Surgery)
PROC: 30233K1 Transfusion of Nonautologous Frozen Plasma into Peripheral Vein, Percutaneous Approach (ICD-10-PCS; 2018-11-23)
PROC: 30233N1 Transfusion of Nonautologous Red Blood Cells into Peripheral Vein, Percutaneous Approach (ICD-10-PCS; 2018-11-23)
PROC: 30233R1 Transfusion of Nonautologous Platelets into Peripheral Vein, Percutaneous Approach (ICD-10-PCS; 2018-11-23)
PROC: 5A1945Z Respiratory Ventilation, 24-96 Consecutive Hours (ICD-10-PCS; 2018-11-24)
PROC: 0BH17EZ Insertion of Endotracheal Airway into Trachea, Via Natural or Artificial Opening (ICD-10-PCS; 2018-11-24)
PROC: B2111ZZ Fluoroscopy of Multiple Coronary Arteries using Low Osmolar Contrast (ICD-10-PCS; 2018-11-24)
PROC: B2151ZZ Fluoroscopy of Left Heart using Low Osmolar Contrast (ICD-10-PCS; 2018-11-24)
PROC: B41G1ZZ Fluoroscopy of Left Lower Extremity Arteries using Low Osmolar Contrast (ICD-10-PCS; 2018-11-24)
PROC: 5A1221Z Performance of Cardiac Output, Continuous (ICD-10-PCS; 2018-11-24)
PROC: 4A023N7 Measurement of Cardiac Sampling and Pressure, Left Heart, Percutaneous Approach (ICD-10-PCS; principal; 2018-11-24 08:45)
PROC: 02100Z9 Bypass Coronary Artery, One Artery from Left Internal Mammary, Open Approach (ICD-10-PCS; 2018-11-24 08:45)
PROC: 021109W Bypass Coronary Artery, Two Arteries from Aorta with Autologous Venous Tissue, Open Approach (ICD-10-PCS; 2018-11-24 08:45)
PROC: 06BQ4ZZ Excision of Left Saphenous Vein, Percutaneous Endoscopic Approach (ICD-10-PCS; 2018-11-24 08:45)
PROC: 04QH0ZZ Repair Right External Iliac Artery, Open Approach (ICD-10-PCS; 2018-11-24 08:45)
PROC: 0Y3 Anatomical Regions, Lower Extremities, Control (ICD-10-PCS; 2018-11-24 08:45)
PROC: 5A1935Z Respiratory Ventilation, Less than 24 Consecutive Hours (ICD-10-PCS; 2018-11-28)
PROC: 5A1935Z Respiratory Ventilation, Less than 24 Consecutive Hours (ICD-10-PCS; 2018-11-29)
PROC: 5A09357 Assistance with Respiratory Ventilation, Less than 24 Consecutive Hours, Continuous Positive Airway Pressure (ICD-10-PCS; 2018-11-30)
PROC: 5A09357 Assistance with Respiratory Ventilation, Less than 24 Consecutive Hours, Continuous Positive Airway Pressure (ICD-10-PCS; 2018-12-01)
PROC: 5A09357 Assistance with Respiratory Ventilation, Less than 24 Consecutive Hours, Continuous Positive Airway Pressure (ICD-10-PCS; 2018-12-03)
PROC: 5A09357 Assistance with Respiratory Ventilation, Less than 24 Consecutive Hours, Continuous Positive Airway Pressure (ICD-10-PCS; 2018-12-04)
PROC: 5A09357 Assistance with Respiratory Ventilation, Less than 24 Consecutive Hours, Continuous Positive Airway Pressure (ICD-10-PCS; 2018-12-05)
PROC: 5A09357 Assistance with Respiratory Ventilation, Less than 24 Consecutive Hours, Continuous Positive Airway Pressure (ICD-10-PCS; 2018-12-06)
PROC: 02HV33Z Insertion of Infusion Device into Superior Vena Cava, Percutaneous Approach (ICD-10-PCS; 2018-12-06)
PROC: 5A09357 Assistance with Respiratory Ventilation, Less than 24 Consecutive Hours, Continuous Positive Airway Pressure (ICD-10-PCS; 2018-12-07)
PROC: 5A09357 Assistance with Respiratory Ventilation, Less than 24 Consecutive Hours, Continuous Positive Airway Pressure (ICD-10-PCS; 2018-12-08)
DX: A41.51 Sepsis due to Escherichia coli [E. coli] (principal); I21.4 Non-ST elevation (NSTEMI) myocardial infarction; I50.33 Acute on chronic diastolic (congestive) heart failure; J69.0 Pneumonitis due to inhalation of food and vomit; K72.00 Acute and subacute hepatic failure without coma; R57.0 Cardiogenic shock; R57.1 Hypovolemic shock; K66.1 Hemoperitoneum; J15.0 Pneumonia due to Klebsiella pneumoniae; G93.41 Metabolic encephalopathy; J95.821 Acute postprocedural respiratory failure; N18.6 End stage renal disease; N17.9 Acute kidney failure, unspecified; D61.818 Other pancytopenia; D62 Acute posthemorrhagic anemia; E87.0 Hyperosmolality and hypernatremia; I13.2 Hypertensive heart and chronic kidney disease with heart failure and with stage 5 chronic kidney disease, or end stage renal disease; N39.0 Urinary tract infection, site not specified; Z16.24 Resistance to multiple antibiotics; I25.110 Atherosclerotic heart disease of native coronary artery with unstable angina pectoris; K92.2 Gastrointestinal hemorrhage, unspecified; D50.0 Iron deficiency anemia secondary to blood loss (chronic); D75.82 Heparin induced thrombocytopenia (HIT); E11.22 Type 2 diabetes mellitus with diabetic chronic kidney disease; E11.65 Type 2 diabetes mellitus with hyperglycemia; E78.00 Pure hypercholesterolemia, unspecified; E78.5 Hyperlipidemia, unspecified; E83.51 Hypocalcemia; E87.6 Hypokalemia; F17.200 Nicotine dependence, unspecified, uncomplicated; I35.8 Other nonrheumatic aortic valve disorders; I48.91 Unspecified atrial fibrillation; B96.1 Klebsiella pneumoniae [K. pneumoniae] as the cause of diseases classified elsewhere; I71.9 Aortic aneurysm of unspecified site, without rupture; N94.89 Other specified conditions associated with female genital organs and menstrual cycle; R13.12 Dysphagia, oropharyngeal phase; S30.1XXA Contusion of abdominal wall, initial encounter; Z74.01 Bed confinement status; Z79.4 Long term (current) use of insulin; Z79.82 Long term (current) use of aspirin; Z88.0 Allergy status to penicillin; Z91.19 Patient's noncompliance with other medical treatment and regimen
CPT/HCPCS: 31500; 36415; 36430; 36600; 71045; 74176; 76998; 80048; 80053; 80076; 81001; 82140; 82330; 82435; 82803; 82947; 82948; 83036; 83605; 83615; 83735; 84100; 84132; 84295; 84300; 84484; 85014; 85018; 85025; 85027; 85049; 85060; 85347; 85370; 85378; 85384; 85520; 85576; 85610; 85730; 86022; 86850; 86900; 86901; 86922; 86927; 87040; 87071; 87077; 87088; 87186; 87205; 92526; 92610; 93005; 93318; 93458; 93880; 93970; 94002; 94003; 94150; 94640; 94660; 94664; 94667; 94668; 94760; 97039; A4606; A7048; B4081; C1894; C9113; G0378; J0171; J0282; J0461; J0583; J0610; J1120; J1160; J1265; J1644; J1650; J1720; J1815; J1940; J1956; J2001; J2150; J2185; J2250; J2370; J2405; J2440; J2704; J2720; J3010; J3370; J3475; J3480; J3490; J7030; J7040; J7042; J7060; J7070; J7120; P9012; P9016; P9017; P9034; P9045; P9046; P9047; Q9967

== ENCOUNTER 2019-01-04 07:34 | Inpatient (IN) | payer OTHER ==
[2019-01-04] VITALS (20 sets, daily range): BP systolic 102–135; BP diastolic 43–61
[~2019-01-04] VITALS: Ht 157.5 cm; Wt 35.5 kg
[~2019-01-04 07:34] MED LIST: DULO30CA52 PO; INSU100I35 SQ; INSU3INS5 SQ; METF-446 PO; ROSU40TA21 PO; TELM40 PO
--- NOTE | 2019-01-04 12:00 | NUR ---
DR. FRANCO IN TO SEE PT. PLAN OF CARE DISCUSSED. NEW ORDERS RECEIVED AND NOTED.
[2019-01-04] MEDS ORDERED: MEROPENEM 500 MG VIAL IV SCH (12:15)
[2019-01-04] MEDS ORDERED: VANCOMYCIN PROTOCOL PER PHARMACY IV PRN (12:15)
[2019-01-04] MEDS ORDERED: ALBUTEROL SULFATE 0.083% 2.5 MG/3 ML INH IH PRN (12:15)
[2019-01-04] MEDS ORDERED: GLUCAGON 1MG KIT 1 MG ML IM PRN (12:15)
[2019-01-04] MEDS ORDERED: LIDOCAINE HCL-MPF 1% 2ML VIAL IV PRN (12:15)
[2019-01-04] MEDS ORDERED: DEXTROSE 50%-WATER 50 ML DISP.SYRIN IV PRN (12:15)
[2019-01-04] MEDS ORDERED: ONDANSETRON HCL 4 MG/2 ML VIAL IVP PRN (12:45)
[2019-01-04] MEDS ORDERED: COMPOUND IV MISC 1 EACH IVSOLN MISC PRN (13:30)
--- NOTE | 2019-01-04 13:30 | NUR ---
DR. MAHER NOTIFIED OF PT ARRIVAL TO UNIT.
[2019-01-04] MEDS ORDERED: COMPOUND PO MISCELLANEOUS 1 EACH MISC MISC PRN (13:45)
[2019-01-04] MEDS ORDERED: VANCOMYCIN 1.25 GM in SODIUM CHLORIDE 0.9% 250 ML IV SCH (13:45)
[2019-01-04] MEDS ORDERED: COMPOUND IV REFRIGERATED 1 EACH IVSOLN MISC PRN (13:45)
[2019-01-04] MEDS: POTASSIUM CHLORIDE 20MEQ/100ML 100 ML IV PRN (14:04)
[2019-01-04] MEDS: FUROSEMIDE 10 MG/ML 4ML VIAL IVP SCH ×2 (14:31→21:05)
[2019-01-04] MEDS: [UNRECOGNIZED DRUG - OTHER] PO SCH ×6 (14:31→21:07)
--- NOTE | 2019-01-04 16:58 | NUR ---
[facility] Assessment for Wound VAC Sternal Wound and Rt Groin Wounds for potential use of Wound VAC for assisting with wound closure. Sternal wound appropriate for wound VAC application. Medial rt groin wound would also be appropriate for wound VAC application. Would recommend use of white foam for wounds with tunnelling and application of Adaptic if any structures are exposed.
[2019-01-04] MEDS: MEROPENEM 500 MG VIAL IV SCH (17:15)
[2019-01-04] MEDS: FAMOTIDINE/PF 20 MG/2 ML VIAL IV SCH (21:04)
[2019-01-04] MEDS: ATORVASTATIN CALCIUM 10 MG TABLET PO SCH (21:05)
[2019-01-04] MEDS: METOPROLOL TARTRATE 25 MG TAB PO SCH (21:05)
[2019-01-05] VITALS (43 sets, daily range): BP systolic 95–158; BP diastolic 42–71
[2019-01-05] MEDS: MEROPENEM 500 MG VIAL IV SCH ×4 (01:10→23:55)
[2019-01-05 03:50] LABS: MEAN CORPUSCULAR HEMOGLOBIN 28.4 pg (27.0-33.0); MEAN CORPUSCULAR HGB CONC 31.9 g/dL (32.0-36.0); NUCLEATED RED BLOOD CELLS 0.1 % (0.0-0.19); PLATELET COUNT (AUTO) 229 K/uL (130-400); RED BLOOD CELL COUNT(AUTO) 3.26 MIL/uL (4.00-5.50); RED CELL DISTRIBUTION WIDTH 19.7 % (11.0-15.5); WHITE BLOOD COUNT (AUTO) 10.2 K/uL (4.8-10.8)
[2019-01-05 04:15] LABS: ALBUMIN 1.6 g/dL (3.5-5.0); BILIRUBIN,TOTAL 0.9 mg/dL (0.2-1.0); CREATININE 0.6 mg/dL (0.5-1.5); POTASSIUM 3.2 mmol/L (3.5-5.1); TOTAL PROTEIN, SERUM 5.3 g/dL (6.0-8.3)
[2019-01-05] MEDS: FUROSEMIDE 10 MG/ML 4ML VIAL IVP SCH ×3 (05:43→21:30)
[2019-01-05] MEDS: POTASSIUM CHLORIDE 10% ELIXIR 20 MEQ/15 ML UDCUP PO PRN ×5 (05:56→14:38)
[2019-01-05] MEDS: ENOXAPARIN SODIUM 40 MG/0.4 ML SYRINGE SQ SCH (08:04)
[2019-01-05] MEDS: FAMOTIDINE/PF 20 MG/2 ML VIAL IV SCH ×2 (08:04→21:29)
[2019-01-05] MEDS: METOPROLOL TARTRATE 25 MG TAB PO SCH ×2 (08:05→21:31)
[2019-01-05] MEDS: METOLAZONE 2.5 MG TABLET PO SCH (08:05)
[2019-01-05] MEDS: ASPIRIN 81MG TAB.CHEW PO SCH (08:05)
[2019-01-05] MEDS: [UNRECOGNIZED DRUG - OTHER] PO SCH ×8 (08:08→21:00)
[2019-01-05] MEDS ORDERED: VANCOMYCIN 1GM+NS 250ML 250 ML IV SCH (12:00)
--- NOTE | 2019-01-05 15:39 | NUR ---
RD notification Pt with Sternum wound infection, Dysphagia. Current tube feedings (Suplena @40mls/hr 960mls/1723kcal/43gm Pro) not meeting Pt nutrition needs. Recommend: Glucerna 1.5 to goal of 50mls/hr (1200mL/1800kcal/99gm pro)Flush: 100mls Q6hrs *Tube feeding recommendations placed in Pt chart. Recommend: Samuel BID, administer via feeding tube, 30mls flush before and after administration Recommend: Recommend 500mg Vitmain C/220mg ZnSO4 QD Pt LBM 01/05. Pt monitored labs: Na 147, BUN 33, Glu 171, Ca 7.9, AST 54, Alb 1.6. RD to continue to monitor. Please notify RD as additional nutrition concerns arise. Thank you. Addendum: 01/05/19 at [address] RD Amended: Links added.
--- NOTE | 2019-01-05 15:40 | NUR ---
[facility] consult Patient assessed as ordered. Patient with unstageable ulcer to sacrococcygeal area. [facility] recommendations submitted. Vladimir cazares in use. Addendum: 01/05/19 at 1635 by KIARA HOLBROOK RN/ Amended: Links added.
--- NOTE | 2019-01-05 19:07 | NUR ---
DC Plan Patient is a transfer from [facility] for eval of surgical wound by CV surgeon. Patient remains vented and in the ICU. Family currently not at the bedside. Anticipate transfer back to [facility] if no surgical intervention is needed. CM to continue to follow.
[2019-01-05] MEDS: ATORVASTATIN CALCIUM 10 MG TABLET PO SCH (21:30)
[2019-01-05] MEDS: ACETAMINOPHEN-CODEINE 300/30MG TAB PO PRN (21:31)
[2019-01-06] VITALS (34 sets, daily range): BP systolic 92–143; BP diastolic 44–79
[2019-01-06] MEDS: INSULIN HUMULIN R 100 UNIT/ML 3ML SQ SCH ×4 (00:01→18:49)
[2019-01-06 03:40] LABS: HEMATOCRIT 30.9 % (36-48); MEAN CORPUSCULAR HEMOGLOBIN 29.6 pg (27.0-33.0); MEAN CORPUSCULAR HGB CONC 32.8 g/dL (32.0-36.0); MEAN CORPUSCULAR VOLUME 90.2 fL (79-99); PLATELET COUNT (AUTO) 232 K/uL (130-400); RED BLOOD CELL COUNT(AUTO) 3.43 MIL/uL (4.00-5.50); RED CELL DISTRIBUTION WIDTH 19.9 % (11.0-15.5); WHITE BLOOD COUNT (AUTO) 10.3 K/uL (4.8-10.8)
[2019-01-06 03:52] LABS: CREATININE 0.8 mg/dL (0.5-1.5); POTASSIUM 3.6 mmol/L (3.5-5.1)
[2019-01-06 03:57] LABS: VANCOMYCIN LEVEL 16.6 mcg/mL (18.0-26.0)
[2019-01-06] MEDS: ACETAMINOPHEN EXTRA STRENGTH 500 MG TABLET PO PRN (04:03)
[2019-01-06] MEDS: POTASSIUM CHLORIDE 10% ELIXIR 20 MEQ/15 ML UDCUP PO PRN ×2 (06:17→08:22)
[2019-01-06] MEDS: FUROSEMIDE 10 MG/ML 4ML VIAL IVP SCH ×3 (06:24→21:40)
[2019-01-06] MEDS: MEROPENEM 500 MG VIAL IV SCH ×2 (08:21→16:20)
[2019-01-06] MEDS: ENOXAPARIN SODIUM 40 MG/0.4 ML SYRINGE SQ SCH (08:21)
[2019-01-06] MEDS: METOLAZONE 2.5 MG TABLET PO SCH (08:22)
[2019-01-06] MEDS: FAMOTIDINE/PF 20 MG/2 ML VIAL IV SCH ×2 (08:22→20:32)
[2019-01-06] MEDS: METOPROLOL TARTRATE 25 MG TAB PO SCH ×2 (08:22→20:36)
[2019-01-06] MEDS: [UNRECOGNIZED DRUG - OTHER] PO SCH ×8 (08:23→20:32)
[2019-01-06] MEDS: ASPIRIN 81MG TAB.CHEW PO SCH (08:23)
[2019-01-06] MEDS: VANCOMYCIN 500MG+NS 100ML 100 ML IV SCH (09:25)
--- NOTE | 2019-01-06 11:00 | NUR ---
PROVIDED LOCAL WOUND CARE TO STERNAL AREA, RIGHT GROIN, LEFT GROIN, AND SACRAL AREA, PICTURES TAKEN AND PLACED IN THE CHART, SEE EMR FOR MEASUREMENTS
--- NOTE | 2019-01-06 14:26 | NUR ---
DC PLAN VISITED WITH PATIENT. PATIENT LIVES WITH DAUGHTER. INDEPENDENT ABLE TO PERFORM ADL'S. PATIENT HAS NO SERVICES OR DME'S. FEELS SAFE TO RETURN HOME. Addendum: 01/06/19 at 1430 by MARIN GRIMES RN CM Amended: Links added.
--- NOTE | 2019-01-06 14:30 | NUR ---
[facility] CONSULT PATIENT ASSESSED REQUESTED: PATIENT PRESENTS WITH STAGE II PRESSURE ULCERS TO LEFT FOOT LATERAL AND RIGHT HEEL; [facility] RECOMMENDATIONS SUBMITTED; WOUND VAC PLACED TO MID STERNAL SURGICAL WOUND WITHOUT INCIDENT. Addendum: 01/07/19 at 1655 by MELL TIWARI LVN LVN W Amended: Links added.
--- NOTE | 2019-01-06 16:45 | NUR ---
ABHINAV HUMPHREY,BATCH MIXER MADE AWARE ABOUT PT'S STATUS, TOLERATING TRACH COLLAR AT 40%, O2 SATS 98-100%, HR 100-110, NO NEW ORDERS GIVEN.
[2019-01-06] MEDS: ATORVASTATIN CALCIUM 10 MG TABLET PO SCH (20:36)
[2019-01-07] VITALS (24 sets, daily range): BP systolic 105–150; BP diastolic 42–88
[2019-01-07] MEDS: MEROPENEM 500 MG VIAL IV SCH ×3 (00:24→16:12)
[2019-01-07 03:54] LABS: HEMATOCRIT 28.9 % (36-48); MEAN CORPUSCULAR HGB CONC 32.6 g/dL (32.0-36.0); MEAN CORPUSCULAR VOLUME 88.9 fL (79-99); NUCLEATED RED BLOOD CELLS 0.1 % (0.0-0.19); PLATELET COUNT (AUTO) 244 K/uL (130-400); RED BLOOD CELL COUNT(AUTO) 3.25 MIL/uL (4.00-5.50); RED CELL DISTRIBUTION WIDTH 19.8 % (11.0-15.5)
[2019-01-07 04:08] LABS: CREATININE 0.7 mg/dL (0.5-1.5); POTASSIUM 3.8 mmol/L (3.5-5.1)
[2019-01-07] MEDS: FUROSEMIDE 10 MG/ML 4ML VIAL IVP SCH ×3 (05:15→21:19)
[2019-01-07] MEDS: INSULIN HUMULIN R 100 UNIT/ML 3ML SQ SCH ×4 (06:39→18:00)
--- NOTE | 2019-01-07 06:40 | NUR ---
WEIGHT PATIENT WEIGHT INCORRECT. BED READS 106.1LBS. PATIENT 82KG ON ADMISSION
--- NOTE | 2019-01-07 07:35 | NUR ---
REC'D IN SEMI-FOWLERS POSITION, AWAKE , FOLLOWS SIMPLE COMMANDS, REMAINS NPO SINCE 299, PER REPORT, FOR POSSIBLE WOUND DEBRIDEMENT TO STERNAL AREA
[2019-01-07] MEDS: ASPIRIN 81MG TAB.CHEW PO SCH (08:12)
[2019-01-07] MEDS: FAMOTIDINE/PF 20 MG/2 ML VIAL IV SCH ×2 (08:12→21:18)
[2019-01-07] MEDS: METOPROLOL TARTRATE 25 MG TAB PO SCH ×2 (08:12→21:18)
[2019-01-07] MEDS: METOLAZONE 2.5 MG TABLET PO SCH (08:12)
[2019-01-07] MEDS: VANCOMYCIN 500MG+NS 100ML 100 ML IV SCH (08:47)
[2019-01-07] MEDS: ENOXAPARIN SODIUM 40 MG/0.4 ML SYRINGE SQ SCH (09:00)
--- NOTE | 2019-01-07 09:15 | NUR ---
ABHINAV HUMPHREY, RECONDITIONING ASSOCIATE AT BEDSIDE, CPAP TRIALS IN PROGRESS AT THIS TIME, TOLERATING WELL, O2 SAT AT 99%
[2019-01-07] MEDS: [UNRECOGNIZED DRUG - OTHER] PO SCH ×8 (09:25→21:20)
--- NOTE | 2019-01-07 09:55 | NUR ---
PLACED ON TRACHE COLLAR AT 40% FIO2, TOLERATING WELL, O2 SAT AT 99%, WILL CONTINUE TO MONITOR
--- NOTE | 2019-01-07 10:30 | NUR ---
PROVIDED LOCAL WOUND CARE TO KEON. GROINS AND SACRAL AREA.
--- NOTE | 2019-01-07 10:58 | NUR ---
HOLD EVALUATION. Pt CURRENTLY WITH TRACH IN LINE WITH VENT, PENDING PROCEDURE. Pt NPO AT THIS TIME. CHILD SUPPORT OFFICER COORDINATED CARE WITH NURSE MCKENZIE AT THIS TIME. EVALUATION TO BE COMPLETED FOR TOMORROW. CHILD SUPPORT OFFICER WILL CONTINUE TO FOLLOW Pt. Addendum: 01/07/19 at 1100 by ORLANDO MIRELES, SPT ST Amended: Links added.
--- NOTE | 2019-01-07 16:23 | NUR ---
LOVENOX DOSE HELD, PENDING DR BIGGS TO PLACE ORDERS FOR WOUND DEBRIDEMENT TO STERNAL AREA.
[2019-01-07] MEDS: ATORVASTATIN CALCIUM 10 MG TABLET PO SCH (21:18)
[2019-01-08] VITALS (31 sets, daily range): BP systolic 104–145; BP diastolic 46–98
[2019-01-08] MEDS: MEROPENEM 500 MG VIAL IV SCH ×3 (01:12→17:00)
[2019-01-08 03:51] LABS: HEMATOCRIT 31.5 % (36-48); MEAN CORPUSCULAR HEMOGLOBIN 28.8 pg (27.0-33.0); MEAN CORPUSCULAR HGB CONC 31.9 g/dL (32.0-36.0); MEAN CORPUSCULAR VOLUME 90.1 fL (79-99); PLATELET COUNT (AUTO) 248 K/uL (130-400); RED CELL DISTRIBUTION WIDTH 19.7 % (11.0-15.5); WHITE BLOOD COUNT (AUTO) 12.2 K/uL (4.8-10.8)
[2019-01-08 03:57] LABS: CREATININE 0.6 mg/dL (0.5-1.5); POTASSIUM 3.1 mmol/L (3.5-5.1)
[2019-01-08 04:06] LABS: INR 1.06 (0.85-1.15); PARTIAL THROMBOPLASTIN TIME 30.1 SEC (26.3-35.5); PROTHROMBIN TIME 11.1 SEC (9.6-11.6)
[2019-01-08] MEDS: POTASSIUM CHLORIDE 20MEQ/100ML 100 ML IV PRN ×2 (04:21→05:59)
[2019-01-08] MEDS: FUROSEMIDE 10 MG/ML 4ML VIAL IVP SCH ×3 (05:13→22:41)
[2019-01-08] MEDS: INSULIN HUMULIN R 100 UNIT/ML 3ML SQ SCH ×4 (05:58→18:00)
--- NOTE | 2019-01-08 08:30 | NUR ---
PT WAS ASSESSED AND PT IS COMPLAINING OF ABDOMINAL DISCOMFORT AND BEING BLOATED.
[2019-01-08] MEDS: ASPIRIN 81MG TAB.CHEW PO SCH (09:00)
[2019-01-08] MEDS: METOPROLOL TARTRATE 25 MG TAB PO SCH ×2 (09:00→22:41)
[2019-01-08] MEDS: FAMOTIDINE/PF 20 MG/2 ML VIAL IV SCH ×2 (09:00→22:42)
[2019-01-08] MEDS: SERTRALINE HCL 50 MG TABLET PO SCH (09:00)
[2019-01-08] MEDS: METOLAZONE 2.5 MG TABLET PO SCH (09:00)
[2019-01-08] MEDS: [UNRECOGNIZED DRUG - OTHER] PO SCH ×8 (09:00→22:43)
[2019-01-08] MEDS: ENOXAPARIN SODIUM 40 MG/0.4 ML SYRINGE SQ SCH (09:00)
[2019-01-08] MEDS ORDERED: COMPOUND IV REFRIGERATED 1 EACH IVSOLN MISC PRN (09:30)
[2019-01-08] MEDS ORDERED: ONDANSETRON HCL 4 MG/2 ML VIAL ONE (10:53)
[2019-01-08] MEDS ORDERED: GLYCOPYRROLATE 1 MG/5 ML SYRINGE ONE (10:53)
[2019-01-08] MEDS ORDERED: FENTANYL CITRATE PF 50 MCG/1 ML 2ML VIAL ONE (10:53)
[2019-01-08] MEDS ORDERED: DEXAMETHASONE SOD PHOSPHATE 10MG/ML 1ML VIAL ONE (10:53)
[2019-01-08] MEDS ORDERED: LIDOCAINE PF 2% 5ML ABBOJECT ONE (10:53)
[2019-01-08] MEDS ORDERED: SUCCINYLCHOLINE 200MG/10ML SYR ONE (10:53)
[2019-01-08] MEDS ORDERED: ETOMIDATE 2 MG/ML 10 ML VIAL ONE (10:54)
[2019-01-08] MEDS ORDERED: NEOSTIGMINE 5MG/5ML SYR IV ONE (10:54)
[2019-01-08] MEDS ORDERED: ROCURONIUM 10MG/1ML SYR 10 MG/ML ML ONE (10:54)
[2019-01-08] MEDS ORDERED: PROPOFOL 10 MG/ML 20ML VIAL IV ONE (10:54)
--- NOTE | 2019-01-08 11:06 | NUR ---
RD FOLLOW UP DIET: NPO; PENDING SURGERY TODAY PER RN. LBM: 01/08; DIARRHEA SINCE ADMISSION. RECTAL TUBE IN PLACE. PT PREVIOUSLY ON GLUCERNA 1.5, REACHED RATE OF 40ML/HR. TOLERATING TF WELL PER RN. FLUSHES AT 100ML Q6. SKIN: STAGE II PRESSURE ULCERS TO LEFT FOOT AND RIGHT HEEL NOTED; PT WITH INCREASED NUTRIENT NEEDS. PENDING FITTER HAND RECOMMENDATIONS. RECOMMENDATIONS/ INTERVENTIONS: ADVANCE DIET WHEN MEDICALLY FEASIBLE CONTINUE GLUCERNA 1.5 WITH GOAL RATE OF 50ML/HR INCREASE FLUSHES TO 155ML Q6 DIANA BID; 30ML BEFORE AND AFTER ADMINISTRATION + 200ML WITH MEDS. TOTAL WATER = 1851ML/D RECOMMEND 500MG VITAMIN C BID AND 220MG ZINC SULFATE QD FOR 14 DAYS TO AID WOUND HEALING CONTINUE TO MONITOR LABS AND ULCER WOUNDS (Na 148, WBC 12.2, BUN 26, BG 174, ALB 1.6) MONITOR TOLERANCE/ RESIDUALS TO TF RD WILL CONTINUE TO MONITOR AND F/U, THANK YOU Addendum: 01/08/19 at [address] Amended: Links added.
[2019-01-08] MEDS ORDERED: ALBUMIN (HUMAN) 5% 250 ML IV ONE (11:42)
[2019-01-08] MEDS ORDERED: SUB TO ALBUTEROL 2.5MG/3ML NEBULES PER P&T IH ONE (11:59)
--- NOTE | 2019-01-08 12:05 | NUR ---
HOLD Pt PENDING PROCEDURE FOR TODAY. RECOMMEND HOLD FOR THERAPEUTIC EVALUATION AT THIS TIME. APPEALS SPECIALIST TO FOLLOW UP WITH Pt ON FRIDAY. APPEALS SPECIALIST COORDINATED CARE WITH NURSE SUZAN HOFFMAN AND NURSE PRACTITIONER ABHINAV BENITES. Addendum: 01/08/19 at 1210 by ORLANDO MIRELES, SPT ST Amended: Links added.
--- NOTE | 2019-01-08 13:30 | NUR ---
PT WAS ADMITTED TO ROOM 216 AFTER CHEST HARDWARE REMOVAL. PT HAS 3 DRAINS TO WALL SUCTION AND 2 ROSEY DRAINS. PT HAS ABDOMINAL BINDER TO CHEST AREA. PT WAS NOT CONNECTED TO VENTILATOR AND WAS CONNECTED TO AEROSOL MIST TO TRACH TUBE.
[2019-01-08] MEDS: ATORVASTATIN CALCIUM 10 MG TABLET PO SCH (22:41)
[2019-01-08] MEDS: VANCOMYCIN 750MG + NS 250 ML IV SCH ×2 (22:42)
[2019-01-09] VITALS (28 sets, daily range): BP systolic 97–138; BP diastolic 47–70
[2019-01-09] MEDS: MEROPENEM 500 MG VIAL IV SCH ×3 (00:52→17:32)
[2019-01-09 03:37] LABS: HEMATOCRIT 29.3 % (36-48); MEAN CORPUSCULAR HEMOGLOBIN 28.3 pg (27.0-33.0); MEAN CORPUSCULAR HGB CONC 31.3 g/dL (32.0-36.0); MEAN CORPUSCULAR VOLUME 90.3 fL (79-99); PLATELET COUNT (AUTO) 285 K/uL (130-400); RED BLOOD CELL COUNT(AUTO) 3.25 MIL/uL (4.00-5.50); RED CELL DISTRIBUTION WIDTH 19.9 % (11.0-15.5); WHITE BLOOD COUNT (AUTO) 14.3 K/uL (4.8-10.8)
[2019-01-09 03:41] LABS: CREATININE 0.7 mg/dL (0.5-1.5); POTASSIUM 3.7 mmol/L (3.5-5.1)
[2019-01-09] MEDS: INSULIN HUMULIN R 100 UNIT/ML 3ML SQ SCH ×4 (06:00→18:00)
[2019-01-09] MEDS: FUROSEMIDE 10 MG/ML 4ML VIAL IVP SCH ×3 (06:27→21:52)
[2019-01-09] MEDS: FAMOTIDINE/PF 20 MG/2 ML VIAL IV SCH ×2 (08:55→20:46)
[2019-01-09] MEDS: METOPROLOL TARTRATE 25 MG TAB PO SCH ×2 (08:55→20:46)
[2019-01-09] MEDS: METOLAZONE 2.5 MG TABLET PO SCH (08:55)
[2019-01-09] MEDS: ENOXAPARIN SODIUM 40 MG/0.4 ML SYRINGE SQ SCH (08:55)
[2019-01-09] MEDS: ASPIRIN 81MG TAB.CHEW PO SCH (08:57)
[2019-01-09] MEDS: SERTRALINE HCL 50 MG TABLET PO SCH (08:57)
[2019-01-09] MEDS ORDERED: PHARMACY COMMUNICATION MISC SCH (11:45)
[2019-01-09] MEDS ORDERED: FLUCONAZOLE IV SCH (12:00)
[2019-01-09] MEDS ORDERED: NS IV SCH (12:00)
[2019-01-09] MEDS: IPRATROPIUM/ALBUTEROL SULFATE 3 ML SOLUTION IH SCH ×3 (12:37→23:08)
[2019-01-09] MEDS: ACETYLCYSTEINE 10% 100MG/ML 4ML VIAL IH SCH ×3 (12:37→23:08)
[2019-01-09] MEDS: VANCOMYCIN 750MG + NS 250 ML IV SCH ×2 (12:44)
[2019-01-09] MEDS: ATORVASTATIN CALCIUM 10 MG TABLET PO SCH (20:46)
[2019-01-10] VITALS (49 sets, daily range): BP systolic 63–163; BP diastolic 26–92
[2019-01-10] MEDS: MEROPENEM 500 MG VIAL IV SCH ×3 (00:12→16:09)
[2019-01-10] MEDS: ACETAMINOPHEN EXTRA STRENGTH 500 MG TABLET PO PRN ×2 (00:13→20:40)
[2019-01-10] MEDS: INSULIN HUMULIN R 100 UNIT/ML 3ML SQ SCH ×5 (00:20→23:44)
[2019-01-10 03:53] LABS: CREATININE 0.9 mg/dL (0.5-1.5); POTASSIUM 3.3 mmol/L (3.5-5.1)
[2019-01-10 03:54] LABS: BASOPHILS % (AUTO) 0.3 % (0.0-5.0); EOSINOPHILS % (AUTO) 0.2 % (0.0-8.0); HEMATOCRIT 25.9 % (36-48); LYMPHOCYTES % (AUTO) 19.1 % (21.0-51.0); MEAN CORPUSCULAR HEMOGLOBIN 28.9 pg (27.0-33.0); MEAN CORPUSCULAR VOLUME 90.1 fL (79-99); MONOCYTES % (AUTO) 8.9 % (3.0-13.0); NEUTROPHILS % (AUTO) 71.5 % (40.0-77.0); PLATELET COUNT (AUTO) 252 K/uL (130-400); RED BLOOD CELL COUNT(AUTO) 2.88 MIL/uL (4.00-5.50); WHITE BLOOD COUNT (AUTO) 16.2 K/uL (4.8-10.8)
[2019-01-10] MEDS: IPRATROPIUM/ALBUTEROL SULFATE 3 ML SOLUTION IH SCH ×4 (04:09→23:18)
[2019-01-10] MEDS: ACETYLCYSTEINE 10% 100MG/ML 4ML VIAL IH SCH ×4 (04:09→23:18)
[2019-01-10] MEDS: POTASSIUM CHLORIDE 20 MEQ ERTAB PO PRN (05:19)
[2019-01-10] MEDS: FUROSEMIDE 10 MG/ML 4ML VIAL IVP SCH ×3 (06:14→22:08)
[2019-01-10] MEDS ORDERED: FENTANYL CITRATE PF 50 MCG/1 ML 2ML VIAL IVP SCH (07:30)
[2019-01-10] MEDS ORDERED: MIDAZOLAM HCL 1 MG/ML 2ML VIAL IVP SCH (07:30)
[2019-01-10] MEDS: FLUCONAZOLE 400 MG/NS 200 ML 200 ML IV SCH (08:05)
[2019-01-10] MEDS: FAMOTIDINE/PF 20 MG/2 ML VIAL IV SCH ×2 (08:06→20:23)
--- NOTE | 2019-01-10 09:30 | NUR ---
DR ADAME AT BEDSIDE, PERFORMING BRONCHOSCOPY, ASSISTED PER ZOËRT AND ÁLVARORT, 2 MG OF ATIVAN AND 50 MCG OF FENTANYL IV GIVEN FOR SEDATION, ORDERED PER .
[2019-01-10] MEDS ORDERED: LIDOCAINE HCL 1% 20 ML VIAL ONE (09:31)
--- NOTE | 2019-01-10 09:49 | NUR ---
CURRENT B/P 63/36, HR 99, O2 SAT AT 99, DR ADAME MADE AWARE, NEW ORDERS GIVEN TO ADMINISTER 500 ML NS BOLUS.
--- NOTE | 2019-01-10 10:00 | NUR ---
CURRENT B/P 108/58, SR 98, O2 SAT AT 98%
[2019-01-10] MEDS ORDERED: SODIUM CHLORIDE 0.9% 1000ML 1,000 ML IV SCH ×2 (10:05→10:15)
[2019-01-10] MEDS: ENOXAPARIN SODIUM 40 MG/0.4 ML SYRINGE SQ SCH (10:23)
[2019-01-10] MEDS: ASPIRIN 81MG TAB.CHEW PO SCH (10:24)
[2019-01-10] MEDS: METOLAZONE 2.5 MG TABLET PO SCH (10:24)
[2019-01-10] MEDS: METOPROLOL TARTRATE 25 MG TAB PO SCH ×2 (10:24→20:23)
[2019-01-10] MEDS: SERTRALINE HCL 50 MG TABLET PO SCH (10:24)
[2019-01-10] MEDS: POTASSIUM CHLORIDE 10% ELIXIR 20 MEQ/15 ML UDCUP PO PRN ×3 (10:46→14:42)
[2019-01-10] MEDS: VANCOMYCIN 750MG + NS 250 ML IV SCH ×2 (11:36)
[2019-01-10] MEDS: ATORVASTATIN CALCIUM 10 MG TABLET PO SCH (20:23)
[2019-01-11] VITALS (34 sets, daily range): BP systolic 109–172; BP diastolic 47–84
[2019-01-11] MEDS: MEROPENEM 500 MG VIAL IV SCH ×3 (00:35→16:46)
[2019-01-11 04:44] LABS: HEMATOCRIT 26.6 % (36-48); MEAN CORPUSCULAR HEMOGLOBIN 28.6 pg (27.0-33.0); MEAN CORPUSCULAR HGB CONC 31.8 g/dL (32.0-36.0); MEAN CORPUSCULAR VOLUME 89.9 fL (79-99); PLATELET COUNT (AUTO) 280 K/uL (130-400); RED BLOOD CELL COUNT(AUTO) 2.96 MIL/uL (4.00-5.50); RED CELL DISTRIBUTION WIDTH 19.5 % (11.0-15.5)
[2019-01-11 04:56] LABS: POTASSIUM 3.9 mmol/L (3.5-5.1)
[2019-01-11] MEDS: INSULIN HUMULIN R 100 UNIT/ML 3ML SQ SCH ×3 (06:00→17:09)
[2019-01-11] MEDS: FUROSEMIDE 10 MG/ML 4ML VIAL IVP SCH ×3 (06:01→21:21)
[2019-01-11] MEDS: IPRATROPIUM/ALBUTEROL SULFATE 3 ML SOLUTION IH SCH ×4 (06:35→21:32)
[2019-01-11] MEDS: ACETYLCYSTEINE 10% 100MG/ML 4ML VIAL IH SCH ×4 (06:35→21:32)
[2019-01-11] MEDS: FAMOTIDINE/PF 20 MG/2 ML VIAL IV SCH ×2 (09:13→20:42)
[2019-01-11] MEDS: SERTRALINE HCL 50 MG TABLET PO SCH (09:14)
[2019-01-11] MEDS: METOPROLOL TARTRATE 25 MG TAB PO SCH ×2 (09:14→20:42)
[2019-01-11] MEDS: METOLAZONE 2.5 MG TABLET PO SCH (09:14)
[2019-01-11] MEDS: ASPIRIN 81MG TAB.CHEW PO SCH (09:14)
[2019-01-11] MEDS: ENOXAPARIN SODIUM 40 MG/0.4 ML SYRINGE SQ SCH (09:15)
--- NOTE | 2019-01-11 09:15 | NUR ---
PASSY FATOU VALVE EVAL COMPLETED. Pt RAISED TO 90 DEGREES IN BED. Pt WITH NO SECRETIONS NOTED ON TRACH. CUFF DEFLATED AT THIS TIME. Pt ON TRACH COLLAR AT THIS TIME. SPO2 99%, BLOOD PRESSURE 135/69. TOTAL TRIAL OF 10 MINUTES WITH NO TACHYPNEA PRESENT. BLOOD PRESSURE OBSERVED TO RAISE TO 169/70, PMV REMOVED. Pt WITH DECREASED VOCAL INTENSITY AND BREATHY VOCAL QUALITY. PLEASE NOTE Pt IS ON A SHILEY 8. RECOMMEND CONTINUED PMV TRIALS AT THIS TIME. RECOMMENDATIONS: 1. SKILLED SPEECH THERAPY RECOMMENDED TARGETING SPEECH 2-5XWK FOR 4 WKS. LTG1: Pt WILL COMMUNICATE WANTS AND NEEDS UTILIZING PMV WITH 80% INTELLIGIBILITY. STG1: Pt WILL TOLERATE PMV FOR 15-20 MINUTES WITH NO OVERT S/S OF DISTRESS. STG2: PT WILL COMPLETE PHONATION FOR 10 SECONDS WITH NO PITCH BREAKS IN 3/5 TRIALS. STG3: Pt WILL VOICE IN 2-3 WORD UTTERANCES USING PMV WITH 80% INTELLIGIBILITY. STG4: SKILLED EDUCATION Pt/FAMILY/STAFF ON USE AND CLEANLINESS OF PMV. Addendum: 01/11/19 at 1258 by ORLANDO MIRELES [facility] ST Amended: Links added.
--- NOTE | 2019-01-11 09:30 | NUR ---
DYSPHAGIA EVAL COMPLETED. +S/S OF ASPIRATION WITH LIQUIDS. RECOMMEND CONTINUED NPO, PEG. RECOMMENDATIONS: 1. SKILLED SPEECH THERAPY TARGETING SWALLOWING 2-5XWK FOR 4 WEEKS. LTG#1: Pt WILL TOLERATE LEAST RESTRICTIVE DIET TO MEET NUTRITION/HYDRATION WITH NO S/S OF ASPIRATION. LTG#2: SKILLED EDUCATION Pt/FAMILY/STAFF STG#1: Pt WILL PARTICIPATE IN LARYNGEAL ELEVATION/EXCURSION EXERCISES WITH 80% ACCURACY. STG#2: Pt WILL PARTICIPATE IN TONGUE BASE RETRACTION EXERCISES WITH 80% ACCURACY. STG#3: Pt WILL PARTICIPATE IN ORAL MOTOR EXERCISES WITH 80% ACCURACY. STG#4: Pt WILL PARTICIPATE IN THERAPEUTIC TRIALS OF ICE CHIPS WITH NO S/S OF ASPIRATION. STG#5: PT WILL BE ABLE TO PARTICIPATE IN MBSS AFTER 2-4 WEEKS OF THERAPEUTIC INTERVENTION. STG#6: SKILLED EDUCATION Pt/FAMILY/STAFF. Addendum: 01/11/19 at [address] Amended: Links added.
[2019-01-11] MEDS: FLUCONAZOLE 400 MG/NS 200 ML 200 ML IV SCH (09:41)
[2019-01-11] MEDS: VANCOMYCIN 750MG + NS 250 ML IV SCH ×2 (10:17)
[2019-01-11] MEDS: HYDRALAZINE HCL 20 MG/ML VIAL IV PRN (12:54)
[2019-01-11] MEDS: ACETAMINOPHEN-CODEINE 300/30MG TAB PO PRN (14:00)
[2019-01-11 14:03] LABS: APPEARANCE,URINE Cloudy (CLEAR); BILIRUBIN,URINE Negative (NEGATIVE); COLOR,URINE Yellow (YELLOW); GLUCOSE, URINE (UA) Negative (NEGATIVE); KETONES,URINE Negative (NEGATIVE); LEUKOCYTE ESTERASE ,URINE Moderate (NEGATIVE); NITRATE,URINE Negative (NEGATIVE); OCCULT BLOOD,URINE Negative (NEGATIVE); PROTEIN,URINE POS 1+ mg/dL (NEGATIVE); UROBILINOGEN,URINE 0.2 mg/dL (0.2-1.0)
[2019-01-11 14:18] LABS: BACTERIA,URINE Rare /HPF (None Seen); RBC,URINE 0-1 /HPF (0-1); YEAST,URINE BUDDING Few /HPF (None Seen)
[2019-01-11 14:19] LABS: HYALINE CASTS, URINE 0-1 /LPF (0-1 /LPF); SQUAMOUS EPITHELIAL CELL,UR Rare /HPF (0-2)
--- NOTE | 2019-01-11 15:00 | NUR ---
2ND WOUND VAC PLACED TO RIGHT GROIN BY WOUND CARE TEAM; NO LEAK NOTED; SUCTION SET TO 125; NO OUTPUT NOTED
[2019-01-11] MEDS ORDERED: IPRATROPIUM/ALBUTEROL SULFATE 3 ML SOLUTION IH SCH (16:00)
[2019-01-11] MEDS: ATORVASTATIN CALCIUM 10 MG TABLET PO SCH (20:42)
[2019-01-12] VITALS (24 sets, daily range): BP systolic 112–157; BP diastolic 50–115
[2019-01-12] MEDS: MEROPENEM 500 MG VIAL IV SCH ×3 (00:08→16:20)
[2019-01-12] MEDS: INSULIN HUMULIN R 100 UNIT/ML 3ML SQ SCH ×4 (00:12→18:38)
[2019-01-12] MEDS: IPRATROPIUM/ALBUTEROL SULFATE 3 ML SOLUTION IH SCH ×6 (01:50→21:49)
[2019-01-12] MEDS: ACETYLCYSTEINE 10% 100MG/ML 4ML VIAL IH SCH ×4 (01:50→21:49)
[2019-01-12 03:40] LABS: HEMATOCRIT 24.4 % (36-48); MEAN CORPUSCULAR HEMOGLOBIN 28.7 pg (27.0-33.0); MEAN CORPUSCULAR HGB CONC 31.5 g/dL (32.0-36.0); NUCLEATED RED BLOOD CELLS 0.1 % (0.0-0.19); PLATELET COUNT (AUTO) 241 K/uL (130-400); RED BLOOD CELL COUNT(AUTO) 2.69 MIL/uL (4.00-5.50); RED CELL DISTRIBUTION WIDTH 19.1 % (11.0-15.5); WHITE BLOOD COUNT (AUTO) 14.3 K/uL (4.8-10.8)
[2019-01-12 04:09] LABS: ALBUMIN 1.9 g/dL (3.5-5.0); BILIRUBIN,TOTAL 0.4 mg/dL (0.2-1.0); CREATININE 0.8 mg/dL (0.5-1.5); POTASSIUM 3.4 mmol/L (3.5-5.1); TOTAL PROTEIN, SERUM 5.7 g/dL (6.0-8.3)
[2019-01-12] MEDS: POTASSIUM CHLORIDE 20MEQ/100ML 100 ML IV PRN ×2 (04:25→09:31)
[2019-01-12] MEDS: FUROSEMIDE 10 MG/ML 4ML VIAL IVP SCH ×3 (05:04→21:45)
[2019-01-12] MEDS: ASPIRIN 81MG TAB.CHEW PO SCH (08:28)
[2019-01-12] MEDS: METOLAZONE 2.5 MG TABLET PO SCH (08:28)
[2019-01-12] MEDS: FLUCONAZOLE 400 MG/NS 200 ML 200 ML IV SCH (08:28)
[2019-01-12] MEDS: SERTRALINE HCL 50 MG TABLET PO SCH (08:28)
[2019-01-12] MEDS: FAMOTIDINE/PF 20 MG/2 ML VIAL IV SCH ×2 (08:28→21:23)
[2019-01-12] MEDS: METOPROLOL TARTRATE 25 MG TAB PO SCH ×2 (08:29→21:24)
[2019-01-12] MEDS: ENOXAPARIN SODIUM 40 MG/0.4 ML SYRINGE SQ SCH (08:30)
--- NOTE | 2019-01-12 09:45 | NUR ---
PHARMACY NOTIFIED OF VANCO TROUGH FROM YESTERDAY; RESULT FAXED TO THEM; PER PHARMACIST, OK TO GIVE VANCO DOSE AT THIS TIME
[2019-01-12] MEDS: VANCOMYCIN 750MG + NS 250 ML IV SCH ×2 (09:51)
--- NOTE | 2019-01-12 13:30 | NUR ---
PMV TRIAL COMPLETED. S: Pt RAISED TO 90 DEGREES IN BED. DAUGHTER PRESENT AT BEDSIDE. Pt COOPERATIVE AT THIS TIME. Pt CURRENTLY ON TRACH COLLAR WITH CUFF DEFLATED. O:PMV PLACED BY CABINETMAKER APPRENTICE. Pt CUED FOR DIAPHRAGMATIC BREATHING. RESULTS FROM SESSION ARE FOLLOWS: STG1: Pt WILL TOLERATE PMV FOR 15-20 MINUTES WITH NO OVERT S/S OF DISTRESS: NO OVERT S/S OF DISTRESS NOTED. Pt WITH INCREASED RESPIRATORY RATE AFTER THE SESSION. STG2: PT WILL COMPLETE PHONATION FOR 10 SECONDS WITH NO PITCH BREAKS IN 3/5 TRIALS: PHONATION COMPLETED FOR 5 SECONDS, 0%. STG3: Pt WILL VOICE IN 2-3 WORD UTTERANCES USING PMV WITH 80% INTELLIGIBILITY: Pt VOICING IN 2-3 WORD UTTERANCES WITH 60% INTELLIGIBILITY. INTENSITY IS CURRENTLY AFFECTING INTELLIGIBILITY. STG4: SKILLED EDUCATION Pt/FAMILY/STAFF ON USE AND CLEANLINESS OF PMV: COMPLETED. DYSPHAGIA: STG1: Pt WILL COMPLETE DRY SWALLOWS WITH NO ABSENT SWALLOWS: Pt WITH IMPROVED LARYNGEAL ELEVATION WHILE COMPLETING DRY SWALLOWS. STG2: Pt WILL COMPLETE LARYNGEAL ELEVATION/EXCURSION EXERCISES WITH 80% ACCURACY: 60% ACCURACY. A:Pt WITH IMPROVED INTENSITY WHEN CUED. Pt WITH IMPROVED TOLERANCE FOR ALL ACTIVITIES. Pt WITH IMPROVED SWALLOW RESPONSE TRIGGER AND ELEVATION. PLEASE NOTE, Pt CONTINUES WITH LOW P.O. (ABLE TO INCREASE WITH TACTILE CUES FOR DIAPHRAGMATIC BREATHING). P:RECOMMEND CONTINUED SKILLED SPEECH THERAPY 3-5XWK TARGETING SPEECH AND SWALLOWING GOALS. ALL QUESTIONS ANSWERED AT THIS TIME. DAUGHTER AGREED WITH PLAN OF CARE AT THIS TIME. Pt CONTINUES TO REQUEST P.O. Addendum: 01/13/19 at 0859 by JEFFERSON MARY Amended: Links added.
[2019-01-12] MEDS: ACETAMINOPHEN-CODEINE 300/30MG TAB PO PRN (15:04)
[2019-01-12] MEDS: ATORVASTATIN CALCIUM 10 MG TABLET PO SCH (21:23)
[2019-01-13] VITALS (51 sets, daily range): BP systolic 96–160; BP diastolic 47–93
[2019-01-13] MEDS: MEROPENEM 500 MG VIAL IV SCH ×4 (00:22→23:40)
[2019-01-13] MEDS: ACETYLCYSTEINE 10% 100MG/ML 4ML VIAL IH SCH ×6 (01:29→21:33)
[2019-01-13] MEDS: IPRATROPIUM/ALBUTEROL SULFATE 3 ML SOLUTION IH SCH ×6 (01:29→21:33)
[2019-01-13 03:39] LABS: HEMATOCRIT 24.7 % (36-48); MEAN CORPUSCULAR HEMOGLOBIN 27.9 pg (27.0-33.0); MEAN CORPUSCULAR HGB CONC 31.2 g/dL (32.0-36.0); MEAN CORPUSCULAR VOLUME 89.5 fL (79-99); PLATELET COUNT (AUTO) 245 K/uL (130-400); RED BLOOD CELL COUNT(AUTO) 2.76 MIL/uL (4.00-5.50); RED CELL DISTRIBUTION WIDTH 19.3 % (11.0-15.5)
[2019-01-13 03:55] LABS: CREATININE 0.8 mg/dL (0.5-1.5); MAGNESIUM 1.9 mg/dL (1.80-2.40); PHOSPHORUS 3.1 mg/dL (2.5-4.9); POTASSIUM 3.9 mmol/L (3.5-5.1)
[2019-01-13] MEDS: FUROSEMIDE 10 MG/ML 4ML VIAL IVP SCH ×3 (06:21→21:38)
[2019-01-13] MEDS: INSULIN HUMULIN R 100 UNIT/ML 3ML SQ SCH ×5 (06:26→23:58)
[2019-01-13] MEDS: FLUCONAZOLE 400 MG/NS 200 ML 200 ML IV SCH (08:07)
[2019-01-13] MEDS: ASPIRIN 81MG TAB.CHEW PO SCH (08:07)
[2019-01-13] MEDS: FAMOTIDINE/PF 20 MG/2 ML VIAL IV SCH ×2 (08:07→21:37)
[2019-01-13] MEDS: METOLAZONE 2.5 MG TABLET PO SCH (08:08)
[2019-01-13] MEDS: SERTRALINE HCL 50 MG TABLET PO SCH (08:08)
[2019-01-13] MEDS: ENOXAPARIN SODIUM 40 MG/0.4 ML SYRINGE SQ SCH (08:08)
[2019-01-13] MEDS: METOPROLOL TARTRATE 25 MG TAB PO SCH ×2 (08:09→21:37)
--- NOTE | 2019-01-13 09:00 | NUR ---
PMV TRIAL COMPLETED. S: Pt RAISED TO 90 DEGREES IN BED. NO FAMILY PRESENT AT THE TIME OF THE SESSION. Pt COOPERATIVE AT THIS TIME. Pt CURRENTLY ON TRACH COLLAR WITH CUFF DEFLATED. O:PMV PLACED BY FERTILIZER LOADER. Pt CUED FOR DIAPHRAGMATIC BREATHING. RESULTS FROM SESSION ARE FOLLOWS: STG1: Pt WILL TOLERATE PMV FOR 15-20 MINUTES WITH NO OVERT S/S OF DISTRESS: NO OVERT S/S OF DISTRESS NOTED (20 MINUTE TRIAL). STG2: PT WILL COMPLETE PHONATION FOR 10 SECONDS WITH NO PITCH BREAKS IN 3/5 TRIALS: PHONATION COMPLETED FOR 5 SECONDS, 0%. STG3: Pt WILL VOICE IN 2-3 WORD UTTERANCES USING PMV WITH 80% INTELLIGIBILITY: Pt VOICING IN 2-3 WORD UTTERANCES WITH 60% INTELLIGIBILITY. INTENSITY IS CURRENTLY AFFECTING INTELLIGIBILITY. STG4: SKILLED EDUCATION Pt/FAMILY/STAFF ON USE AND CLEANLINESS OF PMV: NOT COMPLETED. DYSPHAGIA: STG1: Pt WILL COMPLETE DRY SWALLOWS WITH NO ABSENT SWALLOWS: Pt WITH IMPROVED LARYNGEAL ELEVATION WHILE COMPLETING DRY SWALLOWS. STG2: Pt WILL COMPLETE LARYNGEAL ELEVATION/EXCURSION EXERCISES WITH 80% ACCURACY: 60% ACCURACY. STG3: Pt WILL TOLERATE THERAPEUTIC TRIALS OF ICE CHIPS WITH NO OVERT S/S OF ASPIRATION: 5 TRIALS PROVIDED WITH PHARYNGEAL SWALLOW PALPATED AND PRESENT. NO OVERT S/S OF ASPIRATION PRESENT AT THIS TIME. A:Pt WITH IMPROVED INTENSITY WHEN CUED. Pt WITH IMPROVED TOLERANCE FOR ALL ACTIVITIES. Pt WITH IMPROVED SWALLOW RESPONSE TRIGGER AND ELEVATION. PLEASE NOTE, Pt CONTINUES WITH LOW PHONATION (ABLE TO INCREASE WITH TACTILE CUES FOR DIAPHRAGMATIC BREATHING). P:RECOMMEND CONTINUED SKILLED SPEECH THERAPY 3-5XWK TARGETING SPEECH AND SWALLOWING GOALS. Pt CONTINUES TO REQUEST P.O. RECOMMEND MBSS AT THIS TIME. FERTILIZER LOADER COORDINATED CARE WITH NURSE LOLY Addendum: 01/13/19 at 1227 by JEFFERSON MARY Amended: Links added.
[2019-01-13] MEDS: VANCOMYCIN 750MG + NS 250 ML IV SCH ×2 (11:52)
[2019-01-13] MEDS ORDERED: LIDOCAINE HCL 1% 20 ML VIAL ONE (13:42)
[2019-01-13] MEDS ORDERED: MIDAZOLAM HCL 1 MG/ML 2ML VIAL ONE (13:43)
[2019-01-13] MEDS ORDERED: FENTANYL CITRATE PF 50 MCG/1 ML 2ML VIAL ONE (13:43)
--- NOTE | 2019-01-13 13:50 | NUR ---
Dr. Jay at bedside for bedside bronchoscopy. He ordered 4mg of Versed and 50mcg of fentanyl. 2 mg of versed given during the procedure. Addendum: 01/13/19 at 1442 by LOLY JEFFRIES RN Patient placed on BIPAP at 1458 post procedure to assist with respirations. ordered for BIPAP to be removed once patient wakes up from the sedation
[2019-01-13] MEDS: ATORVASTATIN CALCIUM 10 MG TABLET PO SCH (21:37)
[2019-01-13] MEDS: ACETAMINOPHEN EXTRA STRENGTH 500 MG TABLET PO PRN (23:41)
[2019-01-14] VITALS (25 sets, daily range): BP systolic 130–180; BP diastolic 55–86
[2019-01-14] MEDS: ACETYLCYSTEINE 10% 100MG/ML 4ML VIAL IH SCH ×6 (01:34→21:20)
[2019-01-14] MEDS: IPRATROPIUM/ALBUTEROL SULFATE 3 ML SOLUTION IH SCH ×6 (01:34→21:20)
[2019-01-14 04:11] LABS: BASOPHILS % (AUTO) 1.1 % (0.0-5.0); EOSINOPHILS % (AUTO) 1.9 % (0.0-8.0); HEMATOCRIT 25.7 % (36-48); MEAN CORPUSCULAR HEMOGLOBIN 28.5 pg (27.0-33.0); MEAN CORPUSCULAR HGB CONC 31.7 g/dL (32.0-36.0); MEAN CORPUSCULAR VOLUME 89.9 fL (79-99); MONOCYTES % (AUTO) 8.1 % (3.0-13.0); NEUTROPHILS % (AUTO) 69.9 % (40.0-77.0); PLATELET COUNT (AUTO) 232 K/uL (130-400); RED BLOOD CELL COUNT(AUTO) 2.86 MIL/uL (4.00-5.50); WHITE BLOOD COUNT (AUTO) 11.8 K/uL (4.8-10.8)
[2019-01-14 04:35] LABS: ALBUMIN 1.8 g/dL (3.5-5.0); BILIRUBIN,TOTAL 0.5 mg/dL (0.2-1.0); CREATININE 0.8 mg/dL (0.5-1.5); MAGNESIUM 1.9 mg/dL (1.80-2.40); PHOSPHORUS 3.5 mg/dL (2.5-4.9); POTASSIUM 3.6 mmol/L (3.5-5.1); TOTAL PROTEIN, SERUM 5.8 g/dL (6.0-8.3)
[2019-01-14] MEDS: FUROSEMIDE 10 MG/ML 4ML VIAL IVP SCH ×3 (06:12→22:17)
[2019-01-14] MEDS: POTASSIUM CHLORIDE 10% ELIXIR 20 MEQ/15 ML UDCUP PO PRN (06:12)
[2019-01-14] MEDS: INSULIN HUMULIN R 100 UNIT/ML 3ML SQ SCH ×4 (06:32→23:35)
[2019-01-14] MEDS: FLUCONAZOLE 400 MG/NS 200 ML 200 ML IV SCH (08:52)
[2019-01-14] MEDS: SERTRALINE HCL 50 MG TABLET PO SCH (08:57)
[2019-01-14] MEDS: MEROPENEM 500 MG VIAL IV SCH (08:57)
[2019-01-14] MEDS: ASPIRIN 81MG TAB.CHEW PO SCH (08:58)
[2019-01-14] MEDS: METOLAZONE 2.5 MG TABLET PO SCH (08:58)
[2019-01-14] MEDS: METOPROLOL TARTRATE 25 MG TAB PO SCH ×2 (08:58→20:41)
[2019-01-14] MEDS: ENOXAPARIN SODIUM 40 MG/0.4 ML SYRINGE SQ SCH (09:01)
[2019-01-14] MEDS: FAMOTIDINE/PF 20 MG/2 ML VIAL IV SCH ×2 (09:01→20:40)
[2019-01-14] MEDS: ACETAMINOPHEN-CODEINE 300/30MG TAB PO PRN (09:50)
[2019-01-14] MEDS: VANCOMYCIN 750MG + NS 250 ML IV SCH ×2 (10:46)
--- NOTE | 2019-01-14 13:43 | NUR ---
MBSS COMPLETED. +S/S OF ASPIRATION. RECOMMEND CONTINUED NPO, PEG TUBE FEEDINGS. RECOMMENDATIONS: 1. SKILLED SPEECH THERAPY TARGETING SWALLOWING 2-5XWK FOR 4 WEEKS. LTG#1: Pt WILL TOLERATE LEAST RESTRICTIVE DIET TO MEET NUTRITION/HYDRATION WITH NO S/S OF ASPIRATION. LTG#2: SKILLED EDUCATION Pt/FAMILY/STAFF STG#1: Pt WILL PARTICIPATE IN LARYNGEAL ELEVATION/EXCURSION EXERCISES WITH 80% ACCURACY. STG#2: Pt WILL PARTICIPATE IN TONGUE BASE RETRACTION EXERCISES WITH 80% ACCURACY. STG#3: Pt WILL PARTICIPATE IN ORAL MOTOR EXERCISES WITH 80% ACCURACY. STG#4: Pt WILL PARTICIPATE IN THERAPEUTIC TRIALS OF PUREED,HONEY-THICK LIQUIDS VIA TSP WITH NO S/S OF ASPIRATION. STG#5: SKILLED EDUCATION Pt/FAMILY/STAFF. Addendum: 01/14/19 at 1345 by ORLANDO MIRELES, [facility] ST Amended: Links added.
--- NOTE | 2019-01-14 15:00 | NUR ---
directional cathter used for suctioning left lobe Addendum: 01/14/19 at 1604 by AUBREY FARR RT Amended: Links added.
[2019-01-14] MEDS: ATORVASTATIN CALCIUM 10 MG TABLET PO SCH (20:41)
[2019-01-14] MEDS: HYDRALAZINE HCL 20 MG/ML VIAL IV PRN (23:27)
[2019-01-15] VITALS (25 sets, daily range): BP systolic 128–169; BP diastolic 59–93
[2019-01-15] MEDS: IPRATROPIUM/ALBUTEROL SULFATE 3 ML SOLUTION IH SCH ×6 (01:15→22:28)
[2019-01-15] MEDS: ACETYLCYSTEINE 10% 100MG/ML 4ML VIAL IH SCH ×6 (01:15→22:29)
[2019-01-15 04:06] LABS: BASOPHILS % (AUTO) 0.5 % (0.0-5.0); EOSINOPHILS % (AUTO) 0.8 % (0.0-8.0); HEMATOCRIT 25.2 % (36-48); MEAN CORPUSCULAR HEMOGLOBIN 28.7 pg (27.0-33.0); MEAN CORPUSCULAR VOLUME 89.5 fL (79-99); MONOCYTES % (AUTO) 6.5 % (3.0-13.0); NEUTROPHILS % (AUTO) 77.2 % (40.0-77.0); PLATELET COUNT (AUTO) 234 K/uL (130-400); RED BLOOD CELL COUNT(AUTO) 2.81 MIL/uL (4.00-5.50); RED CELL DISTRIBUTION WIDTH 18.9 % (11.0-15.5); WHITE BLOOD COUNT (AUTO) 15.1 K/uL (4.8-10.8)
[2019-01-15 04:18] LABS: CREATININE 0.8 mg/dL (0.5-1.5); MAGNESIUM 1.9 mg/dL (1.80-2.40); PHOSPHORUS 3.3 mg/dL (2.5-4.9); POTASSIUM 3.3 mmol/L (3.5-5.1)
[2019-01-15] MEDS: FUROSEMIDE 10 MG/ML 4ML VIAL IVP SCH ×3 (05:40→20:12)
[2019-01-15] MEDS: POTASSIUM CHLORIDE 10% ELIXIR 20 MEQ/15 ML UDCUP PO PRN ×2 (05:41→09:44)
[2019-01-15] MEDS: INSULIN HUMULIN R 100 UNIT/ML 3ML SQ SCH ×3 (06:48→18:27)
[2019-01-15] MEDS: METOPROLOL TARTRATE 25 MG TAB PO SCH ×2 (09:43→20:14)
[2019-01-15] MEDS: ASPIRIN 81MG TAB.CHEW PO SCH (09:43)
[2019-01-15] MEDS: METOLAZONE 2.5 MG TABLET PO SCH (09:43)
[2019-01-15] MEDS: FAMOTIDINE/PF 20 MG/2 ML VIAL IV SCH ×2 (09:44→20:13)
[2019-01-15] MEDS: SERTRALINE HCL 50 MG TABLET PO SCH (09:44)
[2019-01-15] MEDS: FLUCONAZOLE 400 MG/NS 200 ML 200 ML IV SCH (09:45)
[2019-01-15] MEDS: ENOXAPARIN SODIUM 40 MG/0.4 ML SYRINGE SQ SCH (09:45)
[2019-01-15] MEDS: VANCOMYCIN 750MG + NS 250 ML IV SCH ×2 (11:04)
--- NOTE | 2019-01-15 12:20 | NUR ---
PMV TRIAL/DYSPHAGIA TREATMENT COMPLETED. S: Pt RAISED TO 90 DEGREES IN BED. NO FAMILY PRESENT AT THE TIME OF THE SESSION. Pt COOPERATIVE AT THIS TIME. Pt CURRENTLY ON TRACH COLLAR WITH CUFF DEFLATED. O:PMV PLACED BY FOOD PORTER. Pt CUED FOR DIAPHRAGMATIC BREATHING. RESULTS FROM SESSION ARE FOLLOWS: STG1: Pt WILL TOLERATE PMV FOR 15-20 MINUTES WITH NO OVERT S/S OF DISTRESS: NO OVERT S/S OF DISTRESS NOTED (25 MINUTE TRIAL). STG2: PT WILL COMPLETE PHONATION FOR 10 SECONDS WITH NO PITCH BREAKS IN 3/5 TRIALS: PHONATION COMPLETED FOR 5 SECONDS, 30%. STG3: Pt WILL VOICE IN 2-3 WORD UTTERANCES USING PMV WITH 80% INTELLIGIBILITY: Pt VOICING IN 2-3 WORD UTTERANCES WITH 60% INTELLIGIBILITY. STG4: SKILLED EDUCATION Pt/FAMILY/STAFF ON USE AND CLEANLINESS OF PMV: COMPLETED WITH NURSING AND Pt. DYSPHAGIA: STG1: Pt WILL COMPLETE DRY SWALLOWS WITH NO ABSENT SWALLOWS: Pt WITH IMPROVED LARYNGEAL ELEVATION WHILE COMPLETING DRY SWALLOWS. STG2: Pt WILL COMPLETE LARYNGEAL ELEVATION/EXCURSION EXERCISES WITH 80% ACCURACY: 60% ACCURACY. STG3: Pt WILL TOLERATE THERAPEUTIC TRIALS OF PUDDING VIA TSP WITH NO OVERT S/S OF ASPIRATION: 5 TRIALS PROVIDED WITH PHARYNGEAL SWALLOW PALPATED AND PRESENT. NO OVERT S/S OF ASPIRATION PRESENT AT THIS TIME. A:Pt WITH IMPROVED INTENSITY WITH MINIMUM CUES. Pt WITH IMPROVED TOLERANCE FOR ALL ACTIVITIES. Pt WITH IMPROVED SWALLOW RESPONSE TRIGGER AND ELEVATION. Pt WITH IMPROVED PMV TOLERANCE. P:RECOMMEND CONTINUED SKILLED SPEECH THERAPY 3-5XWK TARGETING SPEECH AND SWALLOWING GOALS. PMV LEFT IN PLACE, Pt WITH ADEQUATE VITALS AND IMPROVED TOLERANCE. FOOD PORTER COORDINATED CARE WITH NURSE TURPIN AND RT BURGOS. THEY VERBALIZED AGREEMENT TO REMOVE PMV IF Pt PRESENTED WITH OVERT S/S OF DISTRESS. Addendum: 01/15/19 at 1224 by ORLANDO MIRELES [facility] Amended: Links added.
--- NOTE | 2019-01-15 13:02 | NUR ---
RD FOLLOW UP PT CONTINUES WITH ELEVATED NUTRITION RELATED LABS (WBC 15.1, Na 153, K 3.3, BG 287) AND HAS MULTIPLE SKIN ULCERS LOCATED AT THE SACRUM, LEFT FOOT AND RIGHT HEEL REGIONS. PT CURRENTLY ON GLUCERNA 1.5 AT 50ML/HR. LBM: 01/13; DIARRHEA CONTINUES WITH RECTAL TUBE CURRENTLY IN PLACE. RD RECOMMENDS TO INCREASE GLUCERNA 1.5 TO GOAL RATE OF 60MLS/HR FLUSH WITH 180MLS Q6HRS PROVIDE 30ML PROMOD BID; FLUSH W/ 30ML WATER BEFORE AND AFTER EACH ADMINISTRATION- AID IN WOUND HEALING CONTINUE TO MONITOR LABS AND BM RECOMMEND TO IDENTIFY ETIOLOGY OF PT STOOL TO DETERMINE PROPER TREATMENTS RD WILL CONTINUE TO MONITOR AND FOLLOW UP NEEDED, THANK YOU. Addendum: 01/15/19 at [address] Amended: Links added.
[2019-01-15] MEDS: HONEY 1 APPL/ML TUBE TP SCH (17:23)
[2019-01-15] MEDS: POTASSIUM CHLORIDE 20 MEQ ERTAB PO PRN (20:13)
[2019-01-15] MEDS: ATORVASTATIN CALCIUM 10 MG TABLET PO SCH (20:13)
[2019-01-16] VITALS (15 sets, daily range): BP systolic 125–167; BP diastolic 62–87
[2019-01-16] MEDS: INSULIN HUMULIN R 100 UNIT/ML 3ML SQ SCH ×4 (01:06→18:22)
[2019-01-16] MEDS: IPRATROPIUM/ALBUTEROL SULFATE 3 ML SOLUTION IH SCH ×6 (02:17→21:18)
[2019-01-16] MEDS: ACETYLCYSTEINE 10% 100MG/ML 4ML VIAL IH SCH ×6 (02:17→21:17)
[2019-01-16] MEDS: ACETAMINOPHEN-CODEINE 300/30MG TAB PO PRN (03:29)
--- NOTE | 2019-01-16 04:44 | NUR ---
PATIENT UPDATE Pt slept fairly overnight, medicated once for abdominal pain with tylenol no. 3 which afforded relief. Oxygenating well with the trache collar at 40%. Continues with the breathing treatments, secretions mod in amt. Tolerating the peg tube feeding well, no residual noted. Wound vac to the right groin wound, hardly any output from the wound vac drain. Continues with the PCCU status, pending transfer as per order. Afebrile, hypokalemic , pt on diuretic , potassium supplement given as per hypokalemia protocol. Able to communicate with staff bec of the Ramamiair valve.
[2019-01-16 05:05] LABS: HEMATOCRIT 25.3 % (36-48); MEAN CORPUSCULAR HEMOGLOBIN 28.1 pg (27.0-33.0); MEAN CORPUSCULAR HGB CONC 31.6 g/dL (32.0-36.0); MEAN CORPUSCULAR VOLUME 88.8 fL (79-99); PLATELET COUNT (AUTO) 232 K/uL (130-400); RED BLOOD CELL COUNT(AUTO) 2.85 MIL/uL (4.00-5.50); RED CELL DISTRIBUTION WIDTH 18.6 % (11.0-15.5); WHITE BLOOD COUNT (AUTO) 15.5 K/uL (4.8-10.8)
[2019-01-16 05:35] LABS: CREATININE 0.8 mg/dL (0.5-1.5); POTASSIUM 4.5 mmol/L (3.5-5.1)
[2019-01-16] MEDS: FLUCONAZOLE 400 MG/NS 200 ML 200 ML IV SCH (09:28)
[2019-01-16] MEDS: FUROSEMIDE 10 MG/ML 4ML VIAL IVP SCH ×2 (09:28→21:32)
[2019-01-16] MEDS: FAMOTIDINE/PF 20 MG/2 ML VIAL IV SCH ×2 (09:28→22:37)
[2019-01-16] MEDS: METOPROLOL TARTRATE 25 MG TAB PO SCH ×2 (09:29→21:32)
[2019-01-16] MEDS: SERTRALINE HCL 50 MG TABLET PO SCH (09:29)
[2019-01-16] MEDS: ASPIRIN 81MG TAB.CHEW PO SCH (09:29)
[2019-01-16] MEDS: METOLAZONE 2.5 MG TABLET PO SCH ×2 (09:29→14:15)
[2019-01-16] MEDS: ENOXAPARIN SODIUM 40 MG/0.4 ML SYRINGE SQ SCH (09:31)
[2019-01-16] MEDS: HONEY 1 APPL/ML TUBE TP SCH (09:34)
[2019-01-16] MEDS: VANCOMYCIN 750MG + NS 250 ML IV SCH ×2 (11:50)
[2019-01-16] MEDS: ATORVASTATIN CALCIUM 10 MG TABLET PO SCH (21:32)
[2019-01-17] VITALS (15 sets, daily range): BP systolic 134–176; BP diastolic 56–93
[2019-01-17] MEDS: ACETYLCYSTEINE 10% 100MG/ML 4ML VIAL IH SCH ×3 (01:16→09:47)
[2019-01-17] MEDS: IPRATROPIUM/ALBUTEROL SULFATE 3 ML SOLUTION IH SCH ×6 (01:16→21:24)
[2019-01-17 03:50] LABS: HEMATOCRIT 26.2 % (36-48); MEAN CORPUSCULAR HEMOGLOBIN 28.5 pg (27.0-33.0); MEAN CORPUSCULAR HGB CONC 31.4 g/dL (32.0-36.0); MEAN CORPUSCULAR VOLUME 90.8 fL (79-99); PLATELET COUNT (AUTO) 208 K/uL (130-400); RED BLOOD CELL COUNT(AUTO) 2.88 MIL/uL (4.00-5.50); RED CELL DISTRIBUTION WIDTH 18.5 % (11.0-15.5); WHITE BLOOD COUNT (AUTO) 16.2 K/uL (4.8-10.8)
[2019-01-17 04:18] LABS: CREATININE 0.7 mg/dL (0.5-1.5); MAGNESIUM 1.9 mg/dL (1.80-2.40); POTASSIUM 3.9 mmol/L (3.5-5.1)
[2019-01-17] MEDS: INSULIN HUMULIN R 100 UNIT/ML 3ML SQ SCH ×4 (06:44→18:44)
[2019-01-17] MEDS: FLUCONAZOLE 400 MG/NS 200 ML 200 ML IV SCH (09:00)
[2019-01-17] MEDS: ASPIRIN 81MG TAB.CHEW PO SCH (09:01)
[2019-01-17] MEDS: SERTRALINE HCL 50 MG TABLET PO SCH (09:01)
[2019-01-17] MEDS: FAMOTIDINE/PF 20 MG/2 ML VIAL IV SCH ×2 (09:01→21:59)
[2019-01-17] MEDS: METOPROLOL TARTRATE 25 MG TAB PO SCH ×2 (09:01→21:59)
[2019-01-17] MEDS: FUROSEMIDE 10 MG/ML 4ML VIAL IVP SCH ×2 (09:01→21:59)
[2019-01-17] MEDS: HONEY 1 APPL/ML TUBE TP SCH (09:02)
[2019-01-17] MEDS: ENOXAPARIN SODIUM 40 MG/0.4 ML SYRINGE SQ SCH (09:02)
[2019-01-17] MEDS: HYDRALAZINE HCL 20 MG/ML VIAL IV PRN (09:41)
[2019-01-17] MEDS: VANCOMYCIN 750MG + NS 250 ML IV SCH ×2 (11:35)
[2019-01-17] MEDS ORDERED: METOLAZONE 2.5 MG TABLET PO SCH (14:57)
[2019-01-17] MEDS: METOLAZONE 2.5 MG TABLET PO SCH (15:01)
[2019-01-17] MEDS: ATORVASTATIN CALCIUM 10 MG TABLET PO SCH (21:59)
[2019-01-18] VITALS (12 sets, daily range): BP systolic 127–158; BP diastolic 64–89
[2019-01-18] MEDS: INSULIN HUMULIN R 100 UNIT/ML 3ML SQ SCH ×4 (00:30→18:19)
[2019-01-18] MEDS: IPRATROPIUM/ALBUTEROL SULFATE 3 ML SOLUTION IH SCH ×6 (01:16→21:20)
[2019-01-18 03:51] LABS: HEMATOCRIT 25.2 % (36-48); MEAN CORPUSCULAR HEMOGLOBIN 27.7 pg (27.0-33.0); MEAN CORPUSCULAR HGB CONC 31.4 g/dL (32.0-36.0); MEAN CORPUSCULAR VOLUME 88.2 fL (79-99); PLATELET COUNT (AUTO) 234 K/uL (130-400); RED BLOOD CELL COUNT(AUTO) 2.85 MIL/uL (4.00-5.50); RED CELL DISTRIBUTION WIDTH 18.6 % (11.0-15.5); WHITE BLOOD COUNT (AUTO) 15.3 K/uL (4.8-10.8)
[2019-01-18 04:11] LABS: CREATININE 0.7 mg/dL (0.5-1.5); MAGNESIUM 1.9 mg/dL (1.80-2.40)
[2019-01-18 04:16] LABS: POTASSIUM 2.9 mmol/L (3.5-5.1)
[2019-01-18] MEDS: POTASSIUM CHLORIDE 20MEQ/100ML 100 ML IV PRN ×2 (04:35→06:15)
[2019-01-18] MEDS: ACETAMINOPHEN EXTRA STRENGTH 500 MG TABLET PO PRN (04:37)
--- NOTE | 2019-01-18 06:40 | NUR ---
DR BIGGS HERE UPDATED. HE ASKED REGARDING DISCHARGE PLANNING AND WANTS NURSE TO ADDRESS WITH PRIMARY MD REGARDING PLAN FOR DISCHARGE? HOME? WILL SHE NEED HOME RIPPER OPERATOR HOME ANTIBIOTICS? CAN TRACHE BE PLUGGED AND PROVIDED WITH O2 NASAL CANNULA? WILL ENDORSE TO AM NURSE.
[2019-01-18] MEDS: ENOXAPARIN SODIUM 40 MG/0.4 ML SYRINGE SQ SCH (08:31)
[2019-01-18] MEDS: FUROSEMIDE 10 MG/ML 4ML VIAL IVP SCH ×2 (08:31→20:26)
[2019-01-18] MEDS: FLUCONAZOLE 400 MG/NS 200 ML 200 ML IV SCH (08:32)
[2019-01-18] MEDS: SERTRALINE HCL 50 MG TABLET PO SCH (08:32)
[2019-01-18] MEDS: FAMOTIDINE/PF 20 MG/2 ML VIAL IV SCH ×2 (08:32→20:26)
[2019-01-18] MEDS: HONEY 1 APPL/ML TUBE TP SCH (08:32)
[2019-01-18] MEDS: ASPIRIN 81MG TAB.CHEW PO SCH (08:32)
[2019-01-18] MEDS: METOPROLOL TARTRATE 25 MG TAB PO SCH ×2 (08:32→20:26)
--- NOTE | 2019-01-18 09:40 | NUR ---
RD FOLLOW UP LABS REVIEWED; NOT IMPROVING. SKIN: PT HAS MULTIPLE ULCERS, NOTED. SHE CONTINUES HAVING DIARRHEA. RD RECOMMENDS TO CHANGE TF FORMULA TO VITAL AF 1.2. START FULL STRENGTH AT 25ML/HR FOR FIRST 5 HOURS. INCREASE RATE TOLERATED BY 5MLS EVERY 5HRS. GOAL RATE IS 65ML/HR. FORMULA PROVIDES: 1872KCAL, 117GM PROTEIN, 1265ML H2O. FLUSH WITH 160ML Q6HRS. TOTAL WATER IS 2105ML/D. RD WILL CONTINUE TO MONITOR TOLERANCE, LABS AND BM. Addendum: 01/18/19 at [address] Amended: Links added.
--- NOTE | 2019-01-18 13:45 | NUR ---
PMV TRIAL/DYSPHAGIA TREATMENT COMPLETED. S: Pt RAISED TO 90 DEGREES IN BED. NO FAMILY PRESENT AT THE TIME OF THE SESSION. Pt COOPERATIVE AT THIS TIME. Pt CURRENTLY ON TRACH COLLAR WITH CUFF DEFLATED. Pt WITH MITTENS ON AT THIS TIME. O:PMV IN PLACE PRIOR TO M48/M60 TANK DRIVER VISIT. Pt TOLERATING PMV USE ALL DAY. Pt CUED FOR DIAPHRAGMATIC BREATHING. RESULTS FROM SESSION ARE FOLLOWS: STG1: Pt WILL TOLERATE PMV FOR 15-20 MINUTES WITH NO OVERT S/S OF DISTRESS: NO OVERT S/S OF DISTRESS NOTED (20 MINUTE TRIAL-PMV IN PLACE ALL DAY). STG2: PT WILL COMPLETE PHONATION FOR 10 SECONDS WITH NO PITCH BREAKS IN 3/5 TRIALS: PHONATION COMPLETED FOR 5 SECONDS, 50%. STG3: Pt WILL VOICE IN 2-3 WORD UTTERANCES USING PMV WITH 80% INTELLIGIBILITY: Pt VOICING IN 2-3 WORD UTTERANCES WITH 60% INTELLIGIBILITY. STG4: SKILLED EDUCATION Pt/FAMILY/STAFF ON USE AND CLEANLINESS OF PMV: COMPLETED WITH NURSING AND Pt. DYSPHAGIA: STG1: Pt WILL COMPLETE DRY SWALLOWS WITH NO ABSENT SWALLOWS: Pt WITH IMPROVED LARYNGEAL ELEVATION WHILE COMPLETING DRY SWALLOWS. STG2: Pt WILL COMPLETE LARYNGEAL ELEVATION/EXCURSION EXERCISES WITH 80% ACCURACY: 60% ACCURACY. STG3: Pt WILL TOLERATE THERAPEUTIC TRIALS OF PUDDING VIA TSP WITH NO OVERT S/S OF ASPIRATION: 5 TRIALS PROVIDED WITH PHARYNGEAL SWALLOW PALPATED AND PRESENT. NO OVERT S/S OF ASPIRATION PRESENT AT THIS TIME. A:Pt WITH IMPROVED INTENSITY WITH MINIMUM CUES. Pt WITH IMPROVED TOLERANCE FOR ALL ACTIVITIES. Pt WITH IMPROVED SWALLOW RESPONSE TRIGGER AND ELEVATION. Pt TOLERATING PMV ALL DAY. P:RECOMMEND CONTINUED SKILLED SPEECH THERAPY 3-5XWK TARGETING SPEECH AND SWALLOWING GOALS. PMV LEFT IN PLACE, Pt WITH ADEQUATE VITALS AND IMPROVED TOLERANCE. M48/M60 TANK DRIVER COORDINATED CARE WITH NURSE SAEED. THEY VERBALIZED AGREEMENT TO REMOVE PMV IF Pt PRESENTED WITH OVERT S/S OF DISTRESS. Addendum: 01/18/19 at 1348 by ORLANDO MIRELES, [facility] ST Amended: Links added.
[2019-01-18] MEDS: METOLAZONE 2.5 MG TABLET PO SCH (15:56)
--- NOTE | 2019-01-18 17:25 | NUR ---
1330 [facility]. [facility]10 chart reviewed 1415 spoke with [facility] and information fax will call back. 1714 [facility] call back with a denial per administration Eric Chilel HAND SUTURE WINDER not higher level of care. 1730 SELIN GRIERO notified and so was primary nurse Richard angel
[2019-01-18] MEDS: ATORVASTATIN CALCIUM 10 MG TABLET PO SCH (20:26)
[2019-01-18] MEDS: ACETAMINOPHEN-CODEINE 300/30MG TAB PO PRN (21:02)
[2019-01-19] VITALS (15 sets, daily range): BP systolic 109–164; BP diastolic 48–93
[2019-01-19] MEDS: IPRATROPIUM/ALBUTEROL SULFATE 3 ML SOLUTION IH SCH ×6 (01:38→21:44)
[2019-01-19 03:42] LABS: BASOPHILS % (AUTO) 0.4 % (0.0-5.0); EOSINOPHILS % (AUTO) 0.8 % (0.0-8.0); LYMPHOCYTES % (AUTO) 14.6 % (21.0-51.0); MEAN CORPUSCULAR HEMOGLOBIN 28.1 pg (27.0-33.0); MEAN CORPUSCULAR HGB CONC 31.7 g/dL (32.0-36.0); MEAN CORPUSCULAR VOLUME 88.6 fL (79-99); MONOCYTES % (AUTO) 8.5 % (3.0-13.0); NEUTROPHILS % (AUTO) 75.7 % (40.0-77.0); PLATELET COUNT (AUTO) 214 K/uL (130-400); RED CELL DISTRIBUTION WIDTH 18.4 % (11.0-15.5); WHITE BLOOD COUNT (AUTO) 16.5 K/uL (4.8-10.8)
[2019-01-19 03:47] LABS: CREATININE 0.7 mg/dL (0.5-1.5)
[2019-01-19] MEDS: INSULIN HUMULIN R 100 UNIT/ML 3ML SQ SCH ×4 (04:06→18:09)
[2019-01-19] MEDS: POTASSIUM CHLORIDE 20MEQ/100ML 100 ML IV PRN ×3 (04:30→06:23)
[2019-01-19] MEDS: FUROSEMIDE 10 MG/ML 4ML VIAL IVP SCH ×2 (08:35→21:00)
[2019-01-19] MEDS: SERTRALINE HCL 50 MG TABLET PO SCH (08:35)
[2019-01-19] MEDS: ASPIRIN 81MG TAB.CHEW PO SCH (08:35)
[2019-01-19] MEDS: FAMOTIDINE/PF 20 MG/2 ML VIAL IV SCH ×2 (08:35→21:00)
[2019-01-19] MEDS: METOPROLOL TARTRATE 25 MG TAB PO SCH ×2 (08:35→21:00)
[2019-01-19] MEDS: FLUCONAZOLE 400 MG/NS 200 ML 200 ML IV SCH (08:36)
[2019-01-19] MEDS: HONEY 1 APPL/ML TUBE TP SCH (08:36)
[2019-01-19] MEDS: ENOXAPARIN SODIUM 40 MG/0.4 ML SYRINGE SQ SCH (08:36)
--- NOTE | 2019-01-19 10:43 | NUR ---
Patient requires 2 person assist from supine to sit at the edge of the bed with improve trunk control compared last week treatment and was able to follow simple command,knee extension and able to hold it x 5 seconds on both legs.Patient demonstrate decrease endurance with PT activities.Will continue with current PT treatment plan as patient tolerance to increase upper and lower extremity strength.Focus on isometric strengthening exercises to bilateral quadriceps muscle and trunk control while seated at the edge of bed. Addendum: 01/19/19 at 1057 by LUIS ANTONIO MULLEN, PT PT Amended: Links added.
--- NOTE | 2019-01-19 11:00 | NUR ---
SPEECH/DYSPHAGIA TREATMENT COMPLETED. S: Pt RAISED TO 90 DEGREES IN BED. NO FAMILY PRESENT AT THE TIME OF THE SESSION. Pt COOPERATIVE AT THIS TIME. Pt WITH MITTENS ON AT THIS TIME. RT IN THE ROOM COMPLETING INTERNET CAFE MANAGER TRIAL. SESSION WAS COMPLETED WITH INTERNET CAFE MANAGER IN PLACE. O: RESULTS FROM SESSION ARE FOLLOWS: STG1: Pt WILL TOLERATE PMV FOR 15-20 MINUTES WITH NO OVERT S/S OF DISTRESS: INTERNET CAFE MANAGER IN PLACE STG2: PT WILL COMPLETE PHONATION FOR 10 SECONDS WITH NO PITCH BREAKS IN 3/5 TRIALS: PHONATION COMPLETED FOR 6 SECONDS, 60%. STG3: Pt WILL VOICE IN 2-3 WORD UTTERANCES USING PMV WITH 80% INTELLIGIBILITY: Pt VOICING IN 2-3 WORD UTTERANCES WITH 60% INTELLIGIBILITY WITH INTERNET CAFE MANAGER IN PLACE. STG4: SKILLED EDUCATION Pt/FAMILY/STAFF ON USE AND CLEANLINESS OF PMV: COMPLETED WITH NURSING AND Pt. DYSPHAGIA: STG1: Pt WILL COMPLETE DRY SWALLOWS WITH NO ABSENT SWALLOWS: Pt WITH IMPROVED LARYNGEAL ELEVATION WHILE COMPLETING DRY SWALLOWS. STG2: Pt WILL COMPLETE LARYNGEAL ELEVATION/EXCURSION EXERCISES WITH 80% ACCURACY: NOT TARGETED STG3: Pt WILL TOLERATE THERAPEUTIC TRIALS OF PUDDING AND HONEY-THICK LIQUIDS VIA TSP WITH NO OVERT S/S OF ASPIRATION: 5 TRIALS WITH EACH TEXTURE PROVIDED WITH PHARYNGEAL SWALLOW PALPATED AND PRESENT. NO OVERT S/S OF ASPIRATION PRESENT AT THIS TIME. Pt CURED FOR EFFORTFUL SWALLOW AND RE-SWALLOW BY SAP SOLUTIONS ARCHITECT (MAX CUES REQUIRED) A:Pt WITH IMPROVED INTENSITY WITH MINIMUM CUES. Pt WITH IMPROVED TOLERANCE FOR ALL ACTIVITIES. Pt WITH IMPROVED SWALLOW RESPONSE TRIGGER AND ELEVATION. Pt WITH SPO2 ABOVE 95% WITH RR AT 30 WITH INTERNET CAFE MANAGER IN PLACE. NO DESATURATION NOTED AT THIS TIME. P:RECOMMEND CONTINUED SKILLED SPEECH THERAPY 3-5XWK TARGETING SPEECH AND SWALLOWING GOALS. INTERNET CAFE MANAGER LEFT IN PLACE BY RT JERONIMO. Pt WITH ADEQUATE VITALS. SAP SOLUTIONS ARCHITECT COORDINATED CARE WITH NURSE SAEED. POSSIBLE MBSS FOR TOMORROW. SAP SOLUTIONS ARCHITECT WILL CONTINUE TO FOLLOW Pt. Addendum: 01/19/19 at 1253 by ORLANDO MIRELES, SPT ST Amended: Links added.
--- NOTE | 2019-01-19 13:00 | NUR ---
DC PLAN SPOKE TO NURSE SAID PATIENT HAS ULCER TO COCCYX AND STILL HAVING DIARRHEA THAT IS WHY SHE STILL HAS THE RECTAL TUBE. SPEECH WORKING WITH PATIENT WILL HAVE MBSS TOMORROW TO SEE IF CAN START EATING FOOD. PENDING [facility] NURSE TO GIVE LIST OF ITEMS THAT WILL BE NEEDED FOR PATIENT. Addendum: 01/19/19 at 1302 by MARIN GRIMES RN CM Amended: Links added.
--- NOTE | 2019-01-19 15:10 | NUR ---
RD UPDATE RD notification for Bolus Feedings Received. Recommend Vital AF 1.2, 1.5 Cans (0600,1000,1400,1800) (1422mls/1704kcal/107gm Protein).Flushes 45mls before and after each feeding. Recommendations to be placed in Pt chart. Please notify RD as additional nutrition concerns arise. Thank you.
[2019-01-19] MEDS: METOLAZONE 2.5 MG TABLET PO SCH (16:35)
[2019-01-19] MEDS: ATORVASTATIN CALCIUM 10 MG TABLET PO SCH (21:00)
[2019-01-20 00:02] VITALS: BP 146/80
[2019-01-20] MEDS: INSULIN HUMULIN R 100 UNIT/ML 3ML SQ SCH ×3 (00:24→12:52)
[2019-01-20] MEDS: IPRATROPIUM/ALBUTEROL SULFATE 3 ML SOLUTION IH SCH ×4 (01:04→13:38)
[2019-01-20 03:34] VITALS: BP 146/69
[2019-01-20 05:26] LABS: BASOPHILS % (AUTO) 1.4 % (0.0-5.0); EOSINOPHILS % (AUTO) 0.9 % (0.0-8.0); HEMATOCRIT 23.2 % (36-48); LYMPHOCYTES % (AUTO) 14.5 % (21.0-51.0); MEAN CORPUSCULAR HEMOGLOBIN 27.6 pg (27.0-33.0); MEAN CORPUSCULAR HGB CONC 31.3 g/dL (32.0-36.0); MEAN CORPUSCULAR VOLUME 88.1 fL (79-99); MONOCYTES % (AUTO) 7.7 % (3.0-13.0); NEUTROPHILS % (AUTO) 75.5 % (40.0-77.0); PLATELET COUNT (AUTO) 226 K/uL (130-400); RED BLOOD CELL COUNT(AUTO) 2.63 MIL/uL (4.00-5.50); RED CELL DISTRIBUTION WIDTH 18.4 % (11.0-15.5); WHITE BLOOD COUNT (AUTO) 17.5 K/uL (4.8-10.8)
[2019-01-20 05:28] LABS: CREATININE 0.8 mg/dL (0.5-1.5); POTASSIUM 3.4 mmol/L (3.5-5.1)
[2019-01-20] MEDS: POTASSIUM CHLORIDE 10% ELIXIR 20 MEQ/15 ML UDCUP PO PRN (06:05)
[2019-01-20 07:13] VITALS: BP 143/70
[2019-01-20] MEDS: FAMOTIDINE/PF 20 MG/2 ML VIAL IV SCH (09:27)
[2019-01-20] MEDS: METOPROLOL TARTRATE 25 MG TAB PO SCH (09:27)
[2019-01-20] MEDS: FLUCONAZOLE 400 MG/NS 200 ML 200 ML IV SCH (09:27)
[2019-01-20] MEDS: SERTRALINE HCL 50 MG TABLET PO SCH (09:27)
[2019-01-20] MEDS: FUROSEMIDE 10 MG/ML 4ML VIAL IVP SCH (09:28)
[2019-01-20] MEDS: ASPIRIN 81MG TAB.CHEW PO SCH (09:28)
[2019-01-20] MEDS: HONEY 1 APPL/ML TUBE TP SCH (09:29)
[2019-01-20] MEDS: ENOXAPARIN SODIUM 40 MG/0.4 ML SYRINGE SQ SCH (09:29)
--- NOTE | 2019-01-20 11:15 | NUR ---
PT BACK FROM MBSS AND ADVISED PT THAT SHE WOULD HAVE TO CONTINUE TO HAVE FEEDINGS PRESCRIBED AND NO FOOD ORALLY.
[2019-01-20 11:52] VITALS: BP 136/77
--- NOTE | 2019-01-20 12:00 | NUR ---
[facility] RE-EVALUATION COMPLETED. +S/S OF ASPIRATION. RECOMMEND CONTINUED NPO, PEG TUBE FEEDINGS. RECOMMENDATIONS: 1. SKILLED SPEECH THERAPY TARGETING SWALLOWING 2-5XWK FOR 4 WEEKS. LTG#1: Pt WILL TOLERATE LEAST RESTRICTIVE DIET TO MEET NUTRITION/HYDRATION WITH NO S/S OF ASPIRATION. LTG#2: SKILLED EDUCATION Pt/FAMILY/STAFF STG#1: Pt WILL PARTICIPATE IN LARYNGEAL ELEVATION/EXCURSION EXERCISES WITH 80% ACCURACY. STG#2: Pt WILL PARTICIPATE IN TONGUE BASE RETRACTION EXERCISES WITH 80% ACCURACY. STG#3: Pt WILL PARTICIPATE IN ORAL MOTOR EXERCISES WITH 80% ACCURACY. STG#4: Pt WILL PARTICIPATE IN THERAPEUTIC TRIALS OF PUDDING VIA TSP WITH NO S/S OF ASPIRATION WITH MORTGAGE LOAN COORDINATOR ONLY. STG#5: SKILLED EDUCATION Pt/FAMILY/STAFF. Addendum: 01/20/19 at 1201 by ORLADNO MIRELES, SPT ST Amended: Links added.
--- NOTE | 2019-01-20 14:44 | NUR ---
REPORT CALLED TO GABY IBRAHIM RN FROM [facility]. SHE WILL BE GOING TO ROOM 228. EMS WAS CALLED AND ADVISED OF PT'S NEED FOR O2 AND MACHINIST CLASS B. EMS STAFF ADVISED THAT THE PATIENT HAD RECTAL TUBE, F/C, AND WOUND VAC.
--- NOTE | 2019-01-20 16:15 | NUR ---
PT WAS TAKEN TO [facility] BY EMS AND PT WAS IN STABLE CONDITION WHEN SHE WAS PLACED ON EMS STRETCHER.
== END 2019-01-20 16:10 | disposition short-term general hospital (02) | DRG 856 ==
LOC: 2CH 11:30
PROVIDERS: ADMIT Internal Medicine; ATTEND Internal Medicine
PROC: 5A1945Z Respiratory Ventilation, 24-96 Consecutive Hours (ICD-10-PCS; principal; 2019-01-04)
PROC: 0J9C00Z Drainage of Pelvic Region Subcutaneous Tissue and Fascia with Drainage Device, Open Approach (ICD-10-PCS; 2019-01-08)
PROC: 0PC00ZZ Extirpation of Matter from Sternum, Open Approach (ICD-10-PCS; 2019-01-08 10:45)
PROC: 0BC78ZZ Extirpation of Matter from Left Main Bronchus, Via Natural or Artificial Opening Endoscopic (ICD-10-PCS; 2019-01-10)
PROC: 0B9B8ZZ Drainage of Left Lower Lobe Bronchus, Via Natural or Artificial Opening Endoscopic (ICD-10-PCS; 2019-01-13)
PROC: 5A09357 Assistance with Respiratory Ventilation, Less than 24 Consecutive Hours, Continuous Positive Airway Pressure (ICD-10-PCS; 2019-01-13)
DX: T81.41XA Infection following a procedure, superficial incisional surgical site, initial encounter (principal); J98.51 Mediastinitis; E43 Unspecified severe protein-calorie malnutrition; J96.21 Acute and chronic respiratory failure with hypoxia; A41.51 Sepsis due to Escherichia coli [E. coli]; J18.9 Pneumonia, unspecified organism; R65.20 Severe sepsis without septic shock; J96.10 Chronic respiratory failure, unspecified whether with hypoxia or hypercapnia; Z16.12 Extended spectrum beta lactamase (ESBL) resistance; T81.30XA Disruption of wound, unspecified, initial encounter; J90 Pleural effusion, not elsewhere classified; N17.9 Acute kidney failure, unspecified; J98.19 Other pulmonary collapse; G93.40 Encephalopathy, unspecified; Z68.1 Body mass index [BMI] 19.9 or less, adult; E87.0 Hyperosmolality and hypernatremia; L02.214 Cutaneous abscess of groin; N39.0 Urinary tract infection, site not specified; Z99.81 Dependence on supplemental oxygen; Z93.0 Tracheostomy status; L89.159 Pressure ulcer of sacral region, unspecified stage; Z93.1 Gastrostomy status; R13.10 Dysphagia, unspecified; E87.70 Fluid overload, unspecified; D64.9 Anemia, unspecified; Z95.1 Presence of aortocoronary bypass graft; Z86.74 Personal history of sudden cardiac arrest; J45.909 Unspecified asthma, uncomplicated; B37.9 Candidiasis, unspecified; L89.95 Pressure ulcer of unspecified site, unstageable; E66.01 Morbid (severe) obesity due to excess calories; E78.00 Pure hypercholesterolemia, unspecified; E78.5 Hyperlipidemia, unspecified; E87.6 Hypokalemia; I10 Essential (primary) hypertension; I25.10 Atherosclerotic heart disease of native coronary artery without angina pectoris; R13.12 Dysphagia, oropharyngeal phase; Z74.01 Bed confinement status; Z79.4 Long term (current) use of insulin; Z80.3 Family history of malignant neoplasm of breast; Z82.49 Family history of ischemic heart disease and other diseases of the circulatory system; Z88.0 Allergy status to penicillin; E87.8 Other disorders of electrolyte and fluid balance, not elsewhere classified
CPT/HCPCS: 31615; 36415; 71045; 71250; 74176; 74230; 80048; 80053; 80202; 81001; 82948; 83605; 83735; 83880; 84100; 84132; 84134; 85025; 85027; 85610; 85730; 86850; 86900; 86901; 87070; 87071; 87088; 87205; 87324; 92526; 92597; 92610; 92611; 93306; 93970; 94002; 94003; 94640; 94660; 94664; 94667; 94668; 97039; 99152; A4330; A4357; A6266; G0378; J0330; J0360; J1100; J1450; J1650; J1815; J1940; J2001; J2185; J2250; J2405; J2704; J2710; J3010; J3370; J3480; J3490; J7030; J7040; J7608; P9045